=== PATIENT | female | born 1970 | race Caucasian/White ===

== ENCOUNTER 2018-03-24 10:04 | Inpatient (IN) | payer BC, OTHER ==
[2018-03-24] MEDS ORDERED: SODIUM CHLORIDE 0.9% 1,000 ML IV STA ×2 (10:13)
[2018-03-24 10:39] LABS: Anisocytosis Slight; Hypochromasia Marked; MCH 13.3 pg (25.0-35.0); MCHC 23.8 g/dL (31.0-37.0); MCV 55.9 fL (80.0-100.0); Mean Platelet Volume 8.1; Microcytosis Marked; Platelet Count 488 k/uL (150-450); Poikilocytosis Slight; RBC 1.68 m/uL (3.80-5.40); RDW 19.2 % (11.5-15.5); WBC 9.8 k/uL (3.8-10.6)
--- NOTE | 2018-03-24 10:44 | ED ---
General Adult HPI - General Chief complaint: Syncope Stated complaint: Syncope Time Seen by Provider: 03/24/18 10:13 Source: patient, RN notes reviewed, old records reviewed Mode of arrival: wheelchair Limitations: no limitations - History of Present Illness Initial comments: This is a 47-year-old female to the ER today. This patient resents today for evaluation regards to weakness and recurrent syncope. Patient states she's been feeling not well for a week. She denies any significant medical history. No recent travel history no sick contacts no fevers no chest pain. Patient states whenever he tries to get up and move or walk she passes out. Symptoms for 1 day of passing out, again weak for one week. Denies blood in her vomit denies blood in her stool denies any pain. - Related Data Home Medications Medication Instructions Recorded Confirmed Dextroamphetamine/Amphetamine 20 mg PO BID 06/27/15 03/24/18 [Adderall] Albuterol Inhaler [Ventolin Hfa 2 puff INHALATION RT-Q6H PRN 07/18/15 03/24/18 Inhaler] Allergies Allergy/AdvReac Type Severity Reaction Status Date / Time codeine Allergy Nausea & Verified 03/24/18 12:07 Vomiting Review of Systems ROS Statement: Those systems with pertinent positive or pertinent negative responses have been documented in the HPI. ROS Other: All systems not noted in ROS Statement are negative. Past Medical History Past Medical History: Asthma History of Any Multi-Drug Resistant Organisms: None Reported Past Surgical History: Hysterectomy, Tubal Ligation Past Anesthesia/Blood Transfusion Reactions: No Reported Reaction Past Psychological History: No Psychological Hx Reported Smoking Status: Never smoker Past Alcohol Use History: Occasional Past Drug Use History: None Reported - Past Family History Mother Family Medical History: Unable to Obtain General Exam - General Exam Comments Initial Comments: Patient very pale and weak in appearance Limitations: altered mental status General appearance: alert, lethargic Head exam: Present: atraumatic, normocephalic, normal inspection Eye exam: Present: normal appearance, PERRL, EOMI. Absent: scleral icterus, conjunctival injection, periorbital swelling ENT exam: Present: normal exam, mucous membranes moist Neck exam: Present: normal inspection. Absent: tenderness, meningismus, lymphadenopathy Respiratory exam: Present: normal lung sounds bilaterally. Absent: respiratory distress, wheezes, rales, rhonchi, stridor Cardiovascular Exam: Present: regular rate, normal rhythm, normal heart sounds. Absent: systolic murmur, diastolic murmur, rubs, gallop, clicks GI/Abdominal exam: Present: soft, normal bowel sounds. Absent: distended, tenderness, guarding, rebound, rigid Extremities exam: Present: normal inspection, full ROM, normal capillary refill. Absent: tenderness, pedal edema, joint swelling, calf tenderness Back exam: Present: normal inspection Neurological exam: Present: alert, oriented X3, CN II-XII intact Psychiatric exam: Present: normal affect, normal mood Skin exam: Present: warm, dry, intact, normal color. Absent: rash Course Vital Signs 03/24/18 03/24/18 03/24/18 10:07 11:09 12:09 Temperature 98.8 F 98.8 F Pulse Rate 101 H 99 98 Respiratory 20 18 18 Rate Blood Pressure 128/59 118/56 122/54 O2 Sat by Pulse 100 98 Oximetry 03/24/18 03/24/18 03/24/18 12:12 12:22 12:52 Temperature 97.8 F 97.7 F Pulse Rate 97 96 92 Respiratory 18 16 18 Rate Blood Pressure 128/61 127/60 130/80 O2 Sat by Pulse 100 100 Oximetry 03/24/18 03/24/18 03/24/18 14:38 15:02 15:05 Temperature 98.4 F 98.8 F 98.6 F Pulse Rate 87 92 88 Respiratory 16 16 16 Rate Blood Pressure 136/62 140/65 134/60 O2 Sat by Pulse 100 Oximetry 03/24/18 03/24/18 03/24/18 15:15 15:45 16:03 Temperature 98.2 F 98.2 F Pulse Rate 89 90 86 Respiratory 17 16 16 Rate Blood Pressure 132/62 131/62 136/77 O2 Sat by Pulse 100 97 Oximetry 03/24/18 18:28 Temperature 97.8 F Pulse Rate 92 Respiratory 18 Rate Blood Pressure 138/70 O2 Sat by Pulse 96 Oximetry - Reevaluation(s) Reevaluation #1: 03/24/18 11:54 Patient's medical record and prior laboratories are reviewed with hemoglobin near normal range at 10 although 3 years ago Reevaluation #2: 03/24/18 11:54 Patient has not had syncopal event here in the emergency room EKG Findings - EKG Comments: EKG Findings:: EKG shows sinus tachycardia rate 110, SC 180, QRS 70, QTc 443 Medical Decision Making - Medical Decision Making 47 female in severe distress secondary severe anemia we'll continue underlying to GI bleed versus vaginal bleeding slowly losing blood, were quite some time is her hemoglobin is severely low with vital signs being stable. Patient will be transfused and admitted for further evaluation consult regarding source of bleeding - Lab Data Result diagrams: 03/26/18 07:38 03/26/18 07:38 Lab Results 03/24/18 03/24/18 03/24/18 Range/Units 10:25 10:25 10:25 WBC 9.8 (3.8-10.6) k/uL RBC 1.68 L (3.80-5.40) m/uL Hgb 2.2 L* (11.4-16.0) gm/dL Hct 9.4 L* (34.0-46.0) % MCV 55.9 L (80.0-100.0) fL MCH 13.3 L (25.0-35.0) pg MCHC 23.8 L (31.0-37.0) g/dL RDW 19.2 H (11.5-15.5) % Plt Count 488 H (150-450) k/uL Neutrophils % (Manual) 91 % Lymphocytes % (Manual) 5 % Monocytes % (Manual) 4 % Neutrophils # (Manual) 8.92 H (1.3-7.7) k/uL Lymphocytes # (Manual) 0.49 L (1.0-4.8) k/uL Monocytes # (Manual) 0.39 (0-1.0) k/uL Nucleated RBCs 0 (0-0) /100 WBC Large Platelets Present Hypochromasia Marked Poikilocytosis Slight Anisocytosis Slight Microcytosis Marked Retic Count (0.5-2.0) % Haptoglobin (31.2-198.0) mg/dL PT (9.0-12.0) sec INR (<1.2) APTT (22.0-30.0) sec D-Dimer (<0.60) mg/L FEU Sodium 135 L (137-145) mmol/L Potassium 4.1 (3.5-5.1) mmol/L Chloride 102 (98-107) mmol/L Carbon Dioxide 16 L (22-30) mmol/L Anion Gap 17 mmol/L BUN 12 (7-17) mg/dL Creatinine 0.80 (0.52-1.04) mg/dL Est GFR (CKD-EPI)AfAm >90 (>60 ml/min/1.73 sqM) Est GFR (CKD-EPI)NonAf 88 (>60 ml/min/1.73 sqM) Glucose 119 H (74-99) mg/dL Lactic Ac Sepsis Rflx Plasma Lactic Acid Zay (0.7-2.0) mmol/L Calcium 8.7 (8.4-10.2) mg/dL Magnesium 2.4 H (1.6-2.3) mg/dL Iron (50-170) ug/dL TIBC (228-460) ug/dL Iron Saturation (12.00-45.00) Ferritin (10.0-291.0) ng/mL Total Bilirubin 1.2 (0.2-1.3) mg/dL AST 2229 H (14-36) U/L ALT 1887 H (9-52) U/L Alkaline Phosphatase 146 H (38-126) U/L Ammonia (<30) umol/L Lactate Dehydrogenase (313-618) U/L Total Creatine Kinase 43 (30-135) U/L CK-MB (CK-2) 0.8 (0.0-2.4) ng/mL CK-MB (CK-2) Rel Index 1.9 Troponin I 0.083 H* (0.000-0.034) ng/mL Total Protein 6.1 L (6.3-8.2) g/dL Albumin 3.5 (3.5-5.0) g/dL Urine Color Urine Appearance (Clear) Urine pH (5.0-8.0) Ur Specific [place] (1.001-1.035) Urine Protein (Negative) Urine Glucose (UA) (Negative) Urine Ketones (Negative) Urine Blood (Negative) Urine Nitrite (Negative) Urine Bilirubin (Negative) Urine Urobilinogen (<2.0) mg/dL Ur Leukocyte Esterase (Negative) Acetaminophen ug/mL Blood Type Blood Type Recheck Antibody Screen MARLENY, IgG Interpret MARLENY, Poly Interpret Crossmatch Spec Expiration Date 03/24/18 03/24/18 03/24/18 Range/Units 10:25 10:25 10:25 WBC (3.8-10.6) k/uL RBC (3.80-5.40) m/uL Hgb (11.4-16.0) gm/dL Hct (34.0-46.0) % MCV (80.0-100.0) fL MCH (25.0-35.0) pg MCHC (31.0-37.0) g/dL RDW (11.5-15.5) % Plt Count (150-450) k/uL Neutrophils % (Manual) % Lymphocytes % (Manual) % Monocytes % (Manual) % Neutrophils # (Manual) (1.3-7.7) k/uL Lymphocytes # (Manual) (1.0-4.8) k/uL Monocytes # (Manual) (0-1.0) k/uL Nucleated RBCs (0-0) /100 WBC Large Platelets Hypochromasia Poikilocytosis Anisocytosis Microcytosis Retic Count (0.5-2.0) % Haptoglobin (31.2-198.0) mg/dL PT 12.3 H (9.0-12.0) sec INR 1.3 H (<1.2) APTT 21.6 L (22.0-30.0) sec D-Dimer 1.75 H (<0.60) mg/L FEU Sodium (137-145) mmol/L Potassium (3.5-5.1) mmol/L Chloride (98-107) mmol/L Carbon Dioxide (22-30) mmol/L Anion Gap mmol/L BUN (7-17) mg/dL Creatinine (0.52-1.04) mg/dL Est GFR (CKD-EPI)AfAm (>60 ml/min/1.73 sqM) Est GFR (CKD-EPI)NonAf (>60 ml/min/1.73 sqM) Glucose (74-99) mg/dL Lactic Ac Sepsis Rflx Plasma Lactic Acid Zay (0.7-2.0) mmol/L Calcium (8.4-10.2) mg/dL Magnesium (1.6-2.3) mg/dL Iron (50-170) ug/dL TIBC (228-460) ug/dL Iron Saturation (12.00-45.00) Ferritin (10.0-291.0) ng/mL Total Bilirubin (0.2-1.3) mg/dL AST (14-36) U/L ALT (9-52) U/L Alkaline Phosphatase (38-126) U/L Ammonia (<30) umol/L Lactate Dehydrogenase (313-618) U/L Total Creatine Kinase (30-135) U/L CK-MB (CK-2) (0.0-2.4) ng/mL CK-MB (CK-2) Rel Index Troponin I (0.000-0.034) ng/mL Total Protein (6.3-8.2) g/dL Albumin (3.5-5.0) g/dL Urine Color Urine Appearance (Clear) Urine pH (5.0-8.0) Ur Specific [place] (1.001-1.035) Urine Protein (Negative) Urine Glucose (UA) (Negative) Urine Ketones (Negative) Urine Blood (Negative) Urine Nitrite (Negative) Urine Bilirubin (Negative) Urine Urobilinogen (<2.0) mg/dL Ur Leukocyte Esterase (Negative) Acetaminophen <10.0 ug/mL Blood Type B Positive Blood Type Recheck No Antibody Screen NEGATIVE MARLENY, IgG Interpret MARLENY, Poly Interpret Crossmatch See Detail Spec Expiration Date 03/27/2018232403/24/18 03/24/18 03/24/18 Range/Units 10:25 10:25 10:25 WBC (3.8-10.6) k/uL RBC (3.80-5.40) m/uL Hgb (11.4-16.0) gm/dL Hct (34.0-46.0) % MCV (80.0-100.0) fL MCH (25.0-35.0) pg MCHC (31.0-37.0) g/dL RDW (11.5-15.5) % Plt Count (150-450) k/uL Neutrophils % (Manual) % Lymphocytes % (Manual) % Monocytes % (Manual) % Neutrophils # (Manual) (1.3-7.7) k/uL Lymphocytes # (Manual) (1.0-4.8) k/uL Monocytes # (Manual) (0-1.0) k/uL Nucleated RBCs (0-0) /100 WBC Large Platelets Hypochromasia Poikilocytosis Anisocytosis Microcytosis Retic Count 5.0 H (0.5-2.0) % Haptoglobin (31.2-198.0) mg/dL PT (9.0-12.0) sec INR (<1.2) APTT (22.0-30.0) sec D-Dimer (<0.60) mg/L FEU Sodium (137-145) mmol/L Potassium (3.5-5.1) mmol/L Chloride (98-107) mmol/L Carbon Dioxide (22-30) mmol/L Anion Gap mmol/L BUN (7-17) mg/dL Creatinine (0.52-1.04) mg/dL Est GFR (CKD-EPI)AfAm (>60 ml/min/1.73 sqM) Est GFR (CKD-EPI)NonAf (>60 ml/min/1.73 sqM) Glucose (74-99) mg/dL Lactic Ac Sepsis Rflx Plasma Lactic Acid Zay 8.3 H* (0.7-2.0) mmol/L Calcium (8.4-10.2) mg/dL Magnesium (1.6-2.3) mg/dL Iron (50-170) ug/dL TIBC (228-460) ug/dL Iron Saturation (12.00-45.00) Ferritin (10.0-291.0) ng/mL Total Bilirubin (0.2-1.3) mg/dL AST (14-36) U/L ALT (9-52) U/L Alkaline Phosphatase (38-126) U/L Ammonia <9 (<30) umol/L Lactate Dehydrogenase 7038 H (313-618) U/L Total Creatine Kinase (30-135) U/L CK-MB (CK-2) (0.0-2.4) ng/mL CK-MB (CK-2) Rel Index Troponin I (0.000-0.034) ng/mL Total Protein (6.3-8.2) g/dL Albumin (3.5-5.0) g/dL Urine Color Urine Appearance (Clear) Urine pH (5.0-8.0) Ur Specific [place] (1.001-1.035) Urine Protein (Negative) Urine Glucose (UA) (Negative) Urine Ketones (Negative) Urine Blood (Negative) Urine Nitrite (Negative) Urine Bilirubin (Negative) Urine Urobilinogen (<2.0) mg/dL Ur Leukocyte Esterase (Negative) Acetaminophen ug/mL Blood Type Blood Type Recheck Antibody Screen MARLENY, IgG Interpret MARLENY, Poly Interpret Crossmatch Spec Expiration Date 03/24/18 03/24/18 03/24/18 Range/Units 10:25 10:25 12:13 WBC (3.8-10.6) k/uL RBC (3.80-5.40) m/uL Hgb (11.4-16.0) gm/dL Hct (34.0-46.0) % MCV (80.0-100.0) fL MCH (25.0-35.0) pg MCHC (31.0-37.0) g/dL RDW (11.5-15.5) % Plt Count (150-450) k/uL Neutrophils % (Manual) % Lymphocytes % (Manual) % Monocytes % (Manual) % Neutrophils # (Manual) (1.3-7.7) k/uL Lymphocytes # (Manual) (1.0-4.8) k/uL Monocytes # (Manual) (0-1.0) k/uL Nucleated RBCs (0-0) /100 WBC Large Platelets Hypochromasia Poikilocytosis Anisocytosis Microcytosis Retic Count (0.5-2.0) % Haptoglobin 215.0 H (31.2-198.0) mg/dL PT (9.0-12.0) sec INR (<1.2) APTT (22.0-30.0) sec D-Dimer (<0.60) mg/L FEU Sodium (137-145) mmol/L Potassium (3.5-5.1) mmol/L Chloride (98-107) mmol/L Carbon Dioxide (22-30) mmol/L Anion Gap mmol/L BUN (7-17) mg/dL Creatinine (0.52-1.04) mg/dL Est GFR (CKD-EPI)AfAm (>60 ml/min/1.73 sqM) Est GFR (CKD-EPI)NonAf (>60 ml/min/1.73 sqM) Glucose (74-99) mg/dL Lactic Ac Sepsis Rflx Y Plasma Lactic Acid Zay (0.7-2.0) mmol/L Calcium (8.4-10.2) mg/dL Magnesium (1.6-2.3) mg/dL Iron 7 L (50-170) ug/dL TIBC 467 H (228-460) ug/dL Iron Saturation 1.50 L (12.00-45.00) Ferritin 9.2 L (10.0-291.0) ng/mL Total Bilirubin (0.2-1.3) mg/dL AST (14-36) U/L ALT (9-52) U/L Alkaline Phosphatase (38-126) U/L Ammonia (<30) umol/L Lactate Dehydrogenase (313-618) U/L Total Creatine Kinase (30-135) U/L CK-MB (CK-2) (0.0-2.4) ng/mL CK-MB (CK-2) Rel Index Troponin I (0.000-0.034) ng/mL Total Protein (6.3-8.2) g/dL Albumin (3.5-5.0) g/dL Urine Color Urine Appearance (Clear) Urine pH (5.0-8.0) Ur Specific [place] (1.001-1.035) Urine Protein (Negative) Urine Glucose (UA) (Negative) Urine Ketones (Negative) Urine Blood (Negative) Urine Nitrite (Negative) Urine Bilirubin (Negative) Urine Urobilinogen (<2.0) mg/dL Ur Leukocyte Esterase (Negative) Acetaminophen ug/mL Blood Type Blood Type Recheck Antibody Screen MARLENY, IgG Interpret Negative MARLENY, Poly Interpret Negative Crossmatch Spec Expiration Date 03/24/18 Range/Units 13:38 WBC (3.8-10.6) k/uL RBC (3.80-5.40) m/uL Hgb (11.4-16.0) gm/dL Hct (34.0-46.0) % MCV (80.0-100.0) fL MCH (25.0-35.0) pg MCHC (31.0-37.0) g/dL RDW (11.5-15.5) % Plt Count (150-450) k/uL Neutrophils % (Manual) % Lymphocytes % (Manual) % Monocytes % (Manual) % Neutrophils # (Manual) (1.3-7.7) k/uL Lymphocytes # (Manual) (1.0-4.8) k/uL Monocytes # (Manual) (0-1.0) k/uL Nucleated RBCs (0-0) /100 WBC Large Platelets Hypochromasia Poikilocytosis Anisocytosis Microcytosis Retic Count (0.5-2.0) % Haptoglobin (31.2-198.0) mg/dL PT (9.0-12.0) sec INR (<1.2) APTT (22.0-30.0) sec D-Dimer (<0.60) mg/L FEU Sodium (137-145) mmol/L Potassium (3.5-5.1) mmol/L Chloride (98-107) mmol/L Carbon Dioxide (22-30) mmol/L Anion Gap mmol/L BUN (7-17) mg/dL Creatinine (0.52-1.04) mg/dL Est GFR (CKD-EPI)AfAm (>60 ml/min/1.73 sqM) Est GFR (CKD-EPI)NonAf (>60 ml/min/1.73 sqM) Glucose (74-99) mg/dL Lactic Ac Sepsis Rflx Plasma Lactic Acid Zay (0.7-2.0) mmol/L Calcium (8.4-10.2) mg/dL Magnesium (1.6-2.3) mg/dL Iron (50-170) ug/dL TIBC (228-460) ug/dL Iron Saturation (12.00-45.00) Ferritin (10.0-291.0) ng/mL Total Bilirubin (0.2-1.3) mg/dL AST (14-36) U/L ALT (9-52) U/L Alkaline Phosphatase (38-126) U/L Ammonia (<30) umol/L Lactate Dehydrogenase (313-618) U/L Total Creatine Kinase (30-135) U/L CK-MB (CK-2) (0.0-2.4) ng/mL CK-MB (CK-2) Rel Index Troponin I (0.000-0.034) ng/mL Total Protein (6.3-8.2) g/dL Albumin (3.5-5.0) g/dL Urine Color Yellow Urine Appearance Clear (Clear) Urine pH 5.5 (5.0-8.0) Ur Specific [place] 1.032 (1.001-1.035) Urine Protein Trace H (Negative) Urine Glucose (UA) Negative (Negative) Urine Ketones Trace H (Negative) Urine Blood Negative (Negative) Urine Nitrite Negative (Negative) Urine Bilirubin Negative (Negative) Urine Urobilinogen <2.0 (<2.0) mg/dL Ur Leukocyte Esterase Negative (Negative) Acetaminophen ug/mL Blood Type Blood Type Recheck Antibody Screen MARLENY, IgG Interpret MARLENY, Poly Interpret Crossmatch Spec Expiration Date - Radiology Data Radiology results: report reviewed (CT brain negative CT a chest abdomen pelvis shows there is some bleeding on vaginal cough), image reviewed Critical Care Time Critical Care Time: Yes Total Critical Care Time: 95 Disposition Clinical Impression: Anemia, Syncope, Transaminitis, Vaginal bleeding Disposition: ADMITTED IP TO THIS [facility] Condition: Critical Is patient prescribed a controlled substance at d/c from ED?: No
[2018-03-24 10:46] LABS: Albumin 3.5 g/dL (3.5-5.0); Alkaline Phosphatase 146 U/L (38-126); Anion Gap 17 mmol/L; Blood Urea Nitrogen 12 mg/dL (7-17); Calcium 8.7 mg/dL (8.4-10.2); Carbon Dioxide 16 mmol/L (22-30); Chloride 102 mmol/L (98-107); Glucose 119 mg/dL (74-99); Magnesium 2.4 mg/dL (1.6-2.3); Potassium 4.1 mmol/L (3.5-5.1); Sodium 135 mmol/L (137-145); Total Bilirubin 1.2 mg/dL (0.2-1.3); Total Protein 6.1 g/dL (6.3-8.2)
[2018-03-24 10:49] LABS: HCT 9.4 % (34.0-46.0); HGB 2.2 gm/dL (11.4-16.0)
[2018-03-24 10:57] LABS: INR 1.3 (<1.2); Prothrombin Time 12.3 sec (9.0-12.0)
--- NOTE | 2018-03-24 11:08 | CT ---
EXAMINATION TYPE: CT brain wo con DATE OF EXAM: 03/24/2018 COMPARISON: CT facial bones dated 07/16/2016 HISTORY: syncope CT DLP: 1222.5 mGycm. Automated Exposure Control for Dose Reduction was Utilized. TECHNIQUE: CT scan of the head is performed without contrast. FINDINGS: There is no acute intracranial hemorrhage, mass effect, or midline shift identified. No suspicious extra axial fluid collection. The ventricles and sulci are within normal limits in size. 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 Rem aining paranasal sinuses are well aerated as are the mastoid air cells. The globes are intact. There is slightly right exophthalmos that could be partially positional. Partially empty sella turcica is a lso incidentally noted. IMPRESSION: 1. No acute intracranial hemorrhage, mass effect, or midline shift is seen. 2. Slight right-sided exophthalmus may be partially positional but could be correlated with thyroid f unction tests on a nonemergent basis. 3. Severe mucosal thickening of the atrophic right maxillary sinus. Small size may be congenital or p osttraumatic
[2018-03-24 11:11] LABS: Creatine Kinase MB 0.8 ng/mL (0.0-2.4)
[2018-03-24 11:14] LABS: Troponin I 0.083 ng/mL (0.000-0.034)
--- NOTE | 2018-03-24 11:16 | CT ---
EXAMINATION TYPE: CT angio chest DATE OF EXAM: 03/24/2018 COMPARISON: NONE HISTORY: Syncope per patient. Chest pain per order. CT DLP: 629 mGycm. Automated Exposure Control for Dose Reduction was Utilized. CONTRAST: CTA scan of the thorax is performed with IV Contrast, patient injected with 100 mL of Isovue 300, pul monary embolism protocol. MIP Images are created on CT scanner and reviewed. FINDINGS: LUNGS: Evaluation is suboptimal due to respiratory motion artifact degradation There is small right p leural effusion. Tiny left pleural effusion is felt present. There is right greater than left bibasil ar linear scarring and/or atelectasis. No parenchymal nodule or mass is present. There is mild bilate ral central peribronchial wall thickening. MEDIASTINUM: There is suboptimal bolus with near equal contrast seen in the right and left heart syst ems, there is no convincing evidence of central or lobar pulmonary embolism. Majority of segmental br anches show no thrombus. Subsegmental branches are suboptimally evaluated. There are prominent bilat eral hilar lymph nodes or consolidation. Slightly prominent but subcentimeter subcarinal lymph node is felt present. No significant pericardial effusion is seen. Cardiomegaly is present. There is large hiatal hernia or intrathoracic stomach identified. Main pulmonary artery is dilated at 3.2 cm at lev el of bifurcation axial image 59, CT findings consistent with underlying pulmonary hypertension. OTHER: Localizer shows surgical hardware left proximal humerus. Underlying scoliosis in the lumbar sp ine is present. Mild multilevel spurring in the thoracic spine is present. IMPRESSION: 1. Suboptimal study without central pulmonary embolism. Smaller subsegmental PE is not entirely exclu ded on this exam. 2. Consider CHF exacerbation as there is cardiomegaly with small to tiny right greater than left pleu ral effusions and suspected mild central vascular congestion. Correlate clinically. Underlying pulmon renaldo artery hypertension is felt present. Correlate clinically.
[2018-03-24 11:17] LABS: ALT 1887 U/L (9-52); AST 2229 U/L (14-36)
[2018-03-24 11:22] LABS: Lymphocytes # (M) 0.49 k/uL (1.0-4.8); Monocytes # (M) 0.39 k/uL (0-1.0); Neutrophils # (M) 8.92 k/uL (1.3-7.7); Neutrophils % (M) 91 %; Nucleated Red Blood Cells 0 /100 WBC (0-0); Total Cells Counted 100
[2018-03-24 11:23] LABS: Large Platelets Present
[2018-03-24 11:32] LABS: D-Dimer 1.75 mg/L FEU (<0.60); Partial Thromboplastin Time 21.6 sec (22.0-30.0)
[2018-03-24] MEDS ORDERED: ONDANSETRON 4 MG/2 ML VIAL IVP STA (11:59)
[2018-03-24] MEDS ORDERED: PANTOPRAZOLE 40 MG/10 ML VIAL IVP STA (11:59)
[2018-03-24 12:07] LABS: Ammonia <9 umol/L (<30)
[2018-03-24 12:13] LABS: Lactic Acid, Venous 8.3 mmol/L (0.7-2.0)
--- NOTE | 2018-03-24 13:56 | CT ---
EXAMINATION TYPE: CT abdomen pelvis wo con DATE OF EXAM: 03/24/2018 HISTORY: Decreased hemoglobin CT DLP: 1059 mGycm. Automated Exposure Control for Dose Reduction was Utilized. TECHNIQUE: CT scan of the abdomen and pelvis is performed without oral or IV contrast. COMPARISON: CT abdomen and pelvis June 27, 2015 FINDINGS: Within the limitations of a non-contrast study, the following observations are made. LUNG BASES: Mild Cardiomegaly is identified. Small to tiny bilateral pleural effusions right greater than left are partially imaged. There is associated compressive atelectasis. LIVER/GB: No significant abnormality is appreciated. PANCREAS: No significant abnormality is seen. SPLEEN: No significant abnormality is seen. ADRENALS: No significant abnormality is seen. KIDNEYS: Contrast from recent CT is seen in collecting systems and bladder. BOWEL: There is large hiatal hernia or intrathoracic stomach partially imaged similar to prior. GENITAL ORGANS: Retroverted soft tissue density is seen sagittal image 45 posterior to bladder. High dense material centrally in uterus is noted. Differential includes acute hemorrhage in the remnant va ginal cuff. Other etiologies are not excluded. Not typical appearance of bladder diverticulum. Clinic al correlation is advised. There are surgical clips in the left pelvis redemonstrated axial image 62. Adjacent to this is presum ed left ovary with cystic lesions, largest measures 4.1 x 2.7 cm axial image 58. Location is fairly s uperior relative to uterus however. Right ovary is not identified on current study. LYMPH NODES: No greater than 1cm abdominal or pelvic lymph nodes are appreciated. OSSEOUS STRUCTURES: Scoliosis is redemonstrated. OTHER: Mild subcutaneous edema along the lateral flanks is present axial image 33. IMPRESSION: 1. No suspicious retroperitoneal fluid collection or hematoma. Possible acute hemorrhage in remnant v aginal cuff. Correlate clinically. 2. New cystic lesions left lower abdomen/upper pelvis likely within left ovary. Cystic neoplasm canno t be excluded especially if there is history of right-sided ovarian neoplasm. Correlate clinically. C onsider nonemergent pelvic ultrasound follow-up to better evaluate and characterize.
--- NOTE | 2018-03-24 14:35 | US ---
EXAMINATION TYPE: US gallbladder DATE OF EXAM: 03/24/2018 COMPARISON: CT 2018 CLINICAL HISTORY: Pain. Syncope, abdomen pain and nausea x 1 week, exam done portable in ER. EXAM MEASUREMENTS: Liver Length: 18.3 cm Gallbladder Wall: 0.2 cm CBD: 0.3 cm Right Kidney: 11.7 x 4.9 x 5.2 cm Pancreas: visualized portions wnl, limited by overlying midline bowel gas Liver: mildly enlarged at 18.3cm Gallbladder: wnl Evidence for sonographic Tim's sign: no CBD: visualized portions wnl, limited by overlying bowel gas Right Kidney: wnl Right pleural effusion IMPRESSION: 1. No sonographic evidence of cholelithiasis or acute cholecystitis. 2. Incidentally noted partially visualized right pleural effusion.
[2018-03-24 14:41] LABS: Appearance,Urine Clear (Clear); Bilirubin,Urine Negative (Negative); Blood,Urine Negative (Negative); Color,Urine Yellow; Glucose,Urine (UA) Negative (Negative); Ketones,Urine Trace (Negative); Leukocyte Esterase,Urine Negative (Negative); Nitrite,Urine Negative (Negative); PH, Urine 5.5 (5.0-8.0); Protein,Urine Trace (Negative); Specific Gravity,Urine 1.032 (1.001-1.035); Urobilinogen,Urine <2.0 mg/dL (<2.0)
[2018-03-24] MEDS ORDERED: NALOXONE 0.4 MG/ML 1 ML VIAL IV PRN (15:18)
--- NOTE | 2018-03-24 16:52 | P.HPIM ---
History of Present Illness Chief Complaint: Fatigue and dizziness This is a 47-year-old female without significant past medical history and currently taking no home medication who presented to emergency room with complaint of lightheadedness, shortness of breath and several fainting episodes. Her symptoms started approximately 1 week ago with fatigue that was progressive and some over few days became extreme. With the last couple days she started feeling short of breath with exertion. Over the last 2-3 days she's been feeling very lightheaded when getting up and trying to walk and fainted couple of times. There was no headache vision changes chest pain fever chills or abdominal pain. Extreme fatigue and light headedness prompting her to come to emergency department where initial blood work showed hemoglobin of 2. 2 months prior to this admission patient started experiencing occasional hot flashes and attacks of fatigue that were at that time short lasting. Soon after that she noticed difficulties in caring for everyday activities and concentration. She did not notice any vaginal bleeding or melena or hematochezia. She did not notice any abdominal or back pain. She did not notice her eyes or skin turning yellow. No hematuria or darkening of the urine. C essentially denied any skin rashes, fever, chills, recent illnesses, enlarging lymph nodes in the neck or the groins, night sweats, weight or appetite loss. 2 years prior to this admission she was diagnosed with right ovary cyst for which she underwent laparoscopic right sided all ophoro- salpingotomy. 16 years prior to this admission she underwent elective hysterectomy and since then she didn't notice any vaginal bleeding. Emergency department she had CT chest abdomen and pelvis. CT of the pelvis showed retroverted soft tissue density posterior to bladder. High-density material certain this centrally and uterus. Differential was acute hemorrhage in the remnant vaginal cuff. New cystic lesion in the left lower abdomen and upper pelvis likely due to an ovary. Adjacent to this is presumed left ovary with cystic lesion largest measures 4.12.7 cm. Rest of the imaging was unremarkable except mild cardiomegaly and small bilateral pleural effusions. Other pertinent laboratory data includes elevated lactic acid of 8.2, liver enzymes in 1999, normal bilirubin, troponin 0.083, with normal platelet and white blood cell count. Her hematological indices are very low with MCV 55.9 and elevated RDW Review of Systems REVIEW OF SYSTEMS: CONSTITUTIONAL: She denies any recent weight changes, fevers or night sweats. DERMATOLOGIC: She denies any rashes. HEENT: Eyes: She has had no changes in her vision. No eye pain. No discharge. ENT: She had no hearing changes, no throat pain, no sinus difficulties. No hoarseness. CARDIOVASCULAR: She denies any chest pain or abnormal heart beats, or any swelling in her ankles or feet. RESPIRATORY: No wheezing or coughing. Shortness of breath like mentioned in HPI GASTROINTESTINAL: No nausea, vomiting, abdominal pain, diarrhea or constipation , no blood in the stool, GENITOURINARY: She denies any urinary urgency, frequency or burning, and there has been no blood in her urine. She has no flank pain. She has also had no vaginal discharge or bleeding. MUSCULOSKELETAL: She notes full range of motion of all her joints without pain or swelling. ENDOCRINE: She denies any heat or cold intolerance or excessive thirst or urination. NEUROLOGICAL: Currently, no headache. She has no vision changes, or fainting. No numbness or tingling. PSYCHIATRIC: She is awake alert and oriented 3, judgment intact, motor is anxious Past Medical History Past Medical History: Asthma History of Any Multi-Drug Resistant Organisms: None Reported Past Surgical History: Hysterectomy, Tubal Ligation Past Anesthesia/Blood Transfusion Reactions: No Reported Reaction Past Psychological History: No Psychological Hx Reported Smoking Status: Never smoker Past Alcohol Use History: Occasional Past Drug Use History: None Reported - Past Family History Mother Family Medical History: Unable to Obtain Medications and Allergies Home Medications Medication Instructions Recorded Confirmed Type Dextroamphetamine/Amphetamine 20 mg PO BID 06/27/15 03/24/18 History [Adderall] Albuterol Inhaler [Ventolin Hfa 2 puff INHALATION RT-Q6H PRN 07/18/15 03/24/18 History Inhaler] Allergies Allergy/AdvReac Type Severity Reaction Status Date / Time codeine Allergy Nausea & Verified 03/24/18 12:07 Vomiting Physical Exam Vitals: Vital Signs Temp Pulse Resp BP Pulse Ox 03/24/18 16:03 86 16 136/77 97 03/24/18 15:45 98.2 F 90 16 131/62 100 03/24/18 15:15 98.2 F 89 17 132/62 03/24/18 15:05 98.6 F 88 16 134/60 03/24/18 15:02 98.8 F 92 16 140/65 100 08/17/18 14:38 98.4 F 87 16 136/62 03/24/18 12:52 97.7 F 92 18 130/80 100 03/24/18 12:22 97.8 F 96 16 127/60 100 03/24/18 12:12 97 18 128/61 03/24/18 12:09 98.8 F 98 18 122/54 03/24/18 11:09 99 18 118/56 98 03/24/18 10:07 98.8 F 101 H 20 128/59 100 Intake and Output 03/24/18 03/24/18 03/24/18 06:59 14:59 22:59 Intake Total 410 0 Output Total 550 120 Balance -140 -120 Intake: Blood Product 310 0 Rc As-1 Unit 310 [id number] Rc As-1 Unit 0 [id number] Other 100 Rc As-1 Unit 100 [id number] Output: Urine 550 120 Other: Weight 73.482 kg Vital Signs: I have reviewed the vital signs. GENERAL: Well-nourished, Well-developed , no apparent distress, cooperative, Eyes: PERRL, extraoculry movements intact, clear and anicteric conjunctiva Head: : Atraumatic external nose and ears, oropharyngeal mucosa is moist without lesions or exudates Neck: Symmetric, trachea midline, No thyromegaly, no masses or neck vain pulsation, no neck rigidity CVS: +S1/S2, 2/6 murmur left upper sternal border. Peripheral pulses 2+ and equal in all extremities. RESP: Unlabored respiratory effort. Clear to auscultation bilaterally. Abdomen: Bowel sounds present in all 4 quadrants, Soft to palpation, Nontender/ Nondistended, No hepatosplenomegaly, no hernias or masses, no CVA tnderness; vaginal rectal exam deferred due to patient's preference Musculoskeletal: Extremities w/o deformity, No cyanosis or clubbing, no joint swelling Skin: Pale ,Warm, Dry. No rashes or lesions Neuro: roller coaster designer II-XII grossly intact, motor strenght 5/5 i upper and lower extremities, no clonus, patellar DTRs 2+ and sympetrical Psych: Awake, Alert, & Oriented (AAO) x3 Appropriate mood and affect Results CBC & Chem 7: 03/24/18 10:25 08/17/18 10:25 Labs: Abnormal Lab Results - Last 24 Hours (Table) 03/24/18 03/24/18 03/24/18 Range/Units 10:25 10:25 10:25 RBC 1.68 L (3.80-5.40) m/uL Hgb 2.2 L* (11.4-16.0) gm/dL Hct 9.4 L* (34.0-46.0) % MCV 55.9 L (80.0-100.0) fL MCH 13.3 L (25.0-35.0) pg MCHC 23.8 L (31.0-37.0) g/dL RDW 19.2 H (11.5-15.5) % Plt Count 488 H (150-450) k/uL Neutrophils # (Manual) 8.92 H (1.3-7.7) k/uL Lymphocytes # (Manual) 0.49 L (1.0-4.8) k/uL PT (9.0-12.0) sec INR (<1.2) APTT (22.0-30.0) sec D-Dimer (<0.60) mg/L FEU Sodium 135 L (137-145) mmol/L Carbon Dioxide 16 L (22-30) mmol/L Glucose 119 H (74-99) mg/dL Plasma Lactic Acid Zay (0.7-2.0) mmol/L Magnesium 2.4 H (1.6-2.3) mg/dL AST 2229 H (14-36) U/L ALT 1887 H (9-52) U/L Alkaline Phosphatase 146 H (38-126) U/L Troponin I 0.083 H* (0.000-0.034) ng/mL Total Protein 6.1 L (6.3-8.2) g/dL Urine Protein (Negative) Urine Ketones (Negative) Crossmatch 03/24/18 03/24/18 03/24/18 Range/Units 10:25 10:25 10:25 RBC (3.80-5.40) m/uL Hgb (11.4-16.0) gm/dL Hct (34.0-46.0) % MCV (80.0-100.0) fL MCH (25.0-35.0) pg MCHC (31.0-37.0) g/dL RDW (11.5-15.5) % Plt Count (150-450) k/uL Neutrophils # (Manual) (1.3-7.7) k/uL Lymphocytes # (Manual) (1.0-4.8) k/uL PT 12.3 H (9.0-12.0) sec INR 1.3 H (<1.2) APTT 21.6 L (22.0-30.0) sec D-Dimer 1.75 H (<0.60) mg/L FEU Sodium (137-145) mmol/L Carbon Dioxide (22-30) mmol/L Glucose (74-99) mg/dL Plasma Lactic Acid Zay 8.3 H* (0.7-2.0) mmol/L Magnesium (1.6-2.3) mg/dL AST (14-36) U/L ALT (9-52) U/L Alkaline Phosphatase (38-126) U/L Troponin I (0.000-0.034) ng/mL Total Protein (6.3-8.2) g/dL Urine Protein (Negative) Urine Ketones (Negative) Crossmatch See Detail 03/24/18 Range/Units 13:38 RBC (3.80-5.40) m/uL Hgb (11.4-16.0) gm/dL Hct (34.0-46.0) % MCV (80.0-100.0) fL MCH (25.0-35.0) pg MCHC (31.0-37.0) g/dL RDW (11.5-15.5) % Plt Count (150-450) k/uL Neutrophils # (Manual) (1.3-7.7) k/uL Lymphocytes # (Manual) (1.0-4.8) k/uL PT (9.0-12.0) sec INR (<1.2) APTT (22.0-30.0) sec D-Dimer (<0.60) mg/L FEU Sodium (137-145) mmol/L Carbon Dioxide (22-30) mmol/L Glucose (74-99) mg/dL Plasma Lactic Acid Zay (0.7-2.0) mmol/L Magnesium (1.6-2.3) mg/dL AST (14-36) U/L ALT (9-52) U/L Alkaline Phosphatase (38-126) U/L Troponin I (0.000-0.034) ng/mL Total Protein (6.3-8.2) g/dL Urine Protein Trace H (Negative) Urine Ketones Trace H (Negative) Crossmatch CT scan - abdomen: report reviewed CT scan - chest: report reviewed CT Scan - head: report reviewed CT scan - pelvis: report reviewed (CT abdomen and chest and pelvis results were directly reviewed with radiologist) Assessment and Plan Plan: 1. Severe microcytic anemia symptomatic with lightheadedness, fainting, shortness of breath Given hematological indices most likely consistent with iron deficiency anemia and given the patient is hemodynamically stable likely related to slow chronic occult bleeding Concern for bleeding from genital organs including vaginal cuff and cervical remnant as it has some fluid collection resembling blood hemorrhage described in the CAT scan GI bleeding occult cannot be ruled out Plan is to observe in ICU Transfuse as cardio pulmonary status can tolerate I obtained iron studies from abdomen from initial blood work prior to transfusion Workup other etiologies like hemolyze his hands LDH heptoglobin total bili and ta test (although antibody screen foot incision purposes was negative), reticulocyte count and peripheral blood smear review Consult to patient water pollution control technician placed Stool for occult blood ordered and bases and the above results we'll consider involvement of gastroenterology Monitoring hemoglobin every 6 hours ordered 2. Dyspnea In view of cardiomegaly on imaging and small pleural effusions and overall presentation related to high output heart failure related to severe anemia Currently blood transfusions underway but closely monitor cardiopulmonary status full elements of fluid overload We'll obtain echo to evaluate as well 3. Elevated troponin No chest pain EKG with some flat ST segment depressions V3 to V5 nonspecific Likely related to demand ischemia and type II non-STEMI For various reasons patient is not a candidate for antiplatelets and anticoagulation's We'll trend troponins and obtain echocardiogram This patient is well 4. Lactic acidosis Due to tissue hypoperfusion and ischemia Received IV fluids in the emergency department and currently receiving blood Repeat lactic acid pending Metabolically not significantly acidotic and BMP 5. Elevated liver enzymes Denies any suspicious medications or [id number] products Tylenol level is negative This could be related again to 2 ischemia and hypoperfusion of the liver Additionally we will check viral hepatitis study and consider screening for autoimmune hepatitis Aquatics bilirubin pneumonia stable Repeat liver enzymes in the morning Patient is full code Surrogate decision-maker is her mother (name and contact info in the chart) She is expected to have 2 or more midnights stay in inpatient status
[2018-03-24 18:47] LABS: Glucose,Whole Blood 122 mg/dL (75-99)
[2018-03-24] MEDS: MULTIVITAMINS, THERA 1 EACH TAB PO SCH ×2 (18:51→19:02)
[2018-03-24] MEDS: FOLIC ACID 1 MG TAB PO SCH ×2 (18:51→19:02)
[2018-03-24] MEDS: IPRATROPIUM-ALBUTEROL 3 ML NEB INHALATION PRN (19:02)
[2018-03-24] MEDS: PANTOPRAZOLE 40 MG/10 ML VIAL IVP SCH (21:23)
[2018-03-24] MEDS: SODIUM CHLORIDE 0.9% 1,000 ML IV SCH (22:09)
[2018-03-25] MEDS: IPRATROPIUM-ALBUTEROL 3 ML NEB INHALATION PRN ×3 (01:13→20:01)
[2018-03-25] MEDS ORDERED: FUROSEMIDE 10 MG/ML 2 ML VIAL IV ONE (01:51)
[2018-03-25 02:54] LABS: Anisocytosis Marked; HCT 22.2 % (34.0-46.0); Hypochromasia Marked; MCH 24.5 pg (25.0-35.0); MCHC 31.6 g/dL (31.0-37.0); Mean Platelet Volume 9.2; Microcytosis Marked; Platelet Count 353 k/uL (150-450); Poikilocytosis Marked; RBC 2.86 m/uL (3.80-5.40)
[2018-03-25 02:55] LABS: Iron Saturation 1.5 (12.00-45.00)
[2018-03-25 02:56] LABS: MCV 77.5 fL (80.0-100.0)
[2018-03-25 03:20] LABS: Eosinophils # (M) 0.07 k/uL (0-0.7); Lymphocytes # (M) 1.21 k/uL (1.0-4.8); Monocytes # (M) 0.47 k/uL (0-1.0); Myelocytes # (M) 0.07 k/uL (0); Myelocytes % 1 %; Neutrophils # (M) 4.89 k/uL (1.3-7.7); Neutrophils % (M) 73 %; Nucleated Red Blood Cells 5 /100 WBC (0-0); Total Cells Counted 200; WBC 6.7 k/uL (3.8-10.6)
[2018-03-25 03:21] LABS: Large Platelets Present; Mixed Population RBC Present; Polychromasia Present
[2018-03-25 04:56] LABS: Alkaline Phosphatase 148 U/L (38-126); Anion Gap 10 mmol/L; Blood Urea Nitrogen 12 mg/dL (7-17); Calcium 7.8 mg/dL (8.4-10.2); Carbon Dioxide 22 mmol/L (22-30); Chloride 103 mmol/L (98-107); Glucose 103 mg/dL (74-99); Potassium 3.2 mmol/L (3.5-5.1); Sodium 135 mmol/L (137-145); Total Protein 5.5 g/dL (6.3-8.2)
[2018-03-25 05:06] LABS: ALT 1449 U/L (9-52); AST 1104 U/L (14-36)
[2018-03-25] MEDS ORDERED: Potassium Replacement Protocol 1 EACH MISC MISCELLANE PRN (05:30)
--- NOTE | 2018-03-25 06:11 | XR ---
EXAMINATION TYPE: XR chest 1V DATE OF EXAM: 03/25/2018 HISTORY: shortness of breath. REFERENCE: Previous study dated 10/10/2011. FINDINGS: There has been previous internal fixation of the left humerus. The heart is mildly prominent. There is minimal atelectasis at the left lung base. Pleural space are clear. IMPRESSION: 1. MILD CARDIOMEGALY. 2. MINIMAL ATELECTASIS, LEFT LUNG BASE.
[2018-03-25] MEDS: POTASSIUM CHLORIDE ER 20 MEQ TAB.ER PO SCH ×2 (06:23→07:17)
[2018-03-25] MEDS: SODIUM CHLORIDE 0.9% 1,000 ML IV SCH ×2 (08:05→08:19)
[2018-03-25 08:45] LABS: Anisocytosis Marked; HCT 22.5 % (34.0-46.0); HGB 7.1 gm/dL (11.4-16.0); Hypochromasia Marked; MCH 24.4 pg (25.0-35.0); MCHC 31.7 g/dL (31.0-37.0); MCV 76.9 fL (80.0-100.0); Mean Platelet Volume 9.8; Microcytosis Marked; Platelet Count 289 k/uL (150-450); Poikilocytosis Marked; RBC 2.93 m/uL (3.80-5.40)
[2018-03-25 08:48] LABS: RDW 26.2 % (11.5-15.5)
--- NOTE | 2018-03-25 09:31 | P.CNPUL ---
History of Present Illness Consult date: 03/25/18 Requesting physician: Edwin Wade Reason for consult: other (Critical care management) Chief complaint: Weakness, near-syncope History of present illness: This is a very pleasant 47-year-old female patient who follows with Dr. Cherry as her primary care physician. She has a history of chronic bronchial asthma, previous history of right hemorrhagic ovarian mass with right ovarian torsion and left simple cyst status post right salpingo-oophorectomy and drainage of the left ovarian cyst back in 2014. She is also had a hysterectomy. She presented here to the emergency room yesterday after developing significant weakness and recurrent syncopal episodes while trying to ambulate within her home. She felt as though she had obtained some illness from her mother mostly upper respiratory symptoms. She was found to have significant severe anemia with a hemoglobin of 2.2 on arrival. Other significant abnormalities included elevated LFTs with an AST of 2229, ALT 1887, alk phos 146, LDH 7038, troponin 0.083, 0.168. D-dimer 1.75. Computed tomography scan of the brain revealed no acute intracranial hemorrhage. Computed tomography angiogram was suboptimal but no central pulmonary embolism noted. There is cardiomegaly with small bilateral pleural effusions right greater than left and mild central venous congestion. Abdominal computed tomography scan revealed no suspicious retroperitoneal fluid collection or hematoma. There is possible acute hemorrhage in the remnant vaginal cuff. New cystic lesions in left lower abdominal wall suspect within the left ovary. Chest x-ray shows mild evidence of congestive heart failure. She is seen today in consultation in the intensive care unit. She is currently awake and alert in no acute distress. She is maintaining good O2 saturations in the 90s on 2 L/m per nasal cannula. She has an IV of 0.9 normal saline at 50 MLS per hour. She is status post 4 units of packed red blood cells. Current hemoglobin 7.1. No evidence of any acute bleeding. She currently denies any shortness of breath, cough or congestion. No chest pain or palpitations. She does feel still quite weak and fatigued. INPUT OUTPUT CLERK consult pending. Review of Systems Eyes: denies blurred vision, denies decreased vision Ears: deny: decreased hearing Ears, nose, mouth and throat: Denies headache, Denies sore throat Cardiovascular: Reports dyspnea on exertion, Reports lightheadedness Respiratory: Denies cough Gastrointestinal: Denies abdominal pain, Denies diarrhea, Denies nausea, Denies vomiting Genitourinary: Denies dysuria, Denies hematuria Menstruation: Reports post hysterectomy Musculoskeletal: Denies myalgias Integumentary: Denies pruritus, Denies rash Neurological: Denies numbness, Denies weakness Psychiatric: Denies anxiety, Denies depression Endocrine: Denies fatigue, Denies weight change Hematologic/Lymphatic: Reports as per HPI Allergic/Immunologic: Reports as per HPI Past Medical History Past Medical History: Asthma, GERD/Reflux Additional Past Medical History / Comment(s): falls, still has lt ovary. pne vaccine-not sure of date History of Any Multi-Drug Resistant Organisms: None Reported Past Surgical History: Hysterectomy, Tubal Ligation Additional Past Surgical History / Comment(s): rt fallopian tube and ovary removed, uterus removed still has lt ovary but did have cyst removed off that one Past Anesthesia/Blood Transfusion Reactions: Motion Sickness Smoking Status: Never smoker - Past Family History Mother Family Medical History: Unable to Obtain Additional Family Medical History / Comment(s): pt was adopted Medications and Allergies Home Medications Medication Instructions Recorded Confirmed Type Dextroamphetamine/Amphetamine 20 mg PO BID 06/27/15 03/24/18 History [Adderall] Albuterol Inhaler [Ventolin Hfa 2 puff INHALATION RT-Q6H PRN 07/18/15 03/24/18 History Inhaler] Allergies Allergy/AdvReac Type Severity Reaction Status Date / Time codeine Allergy Nausea & Verified 03/24/18 12:07 Vomiting Physical Exam Vitals: Vital Signs Temp Pulse Resp BP Pulse Ox 03/25/18 09:00 90 25 H 122/51 97 03/25/18 08:00 98.1 F 87 22 118/58 99 03/25/18 07:51 24 03/25/18 07:30 78 03/25/18 07:21 76 03/25/18 07:00 75 24 117/56 98 03/25/18 06:00 72 22 118/50 99 03/25/18 05:00 76 22 119/58 98 03/25/18 04:00 98.7 F 74 13 102/41 98 03/25/18 03:00 82 24 117/58 98 03/25/18 02:00 82 24 115/59 97 08/18/18 01:23 82 08/18/18 01:13 82 08/18/18 01:00 80 24 119/50 100 /18/18 00:47 98.3 F 82 20 119/50 100 18/18 00:00 98.3 F 87 22 120/57 100 /17/18 23:13 89 20 118/57 100 17/18 23:00 83 22 118/57 100 17/18 22:42 98.7 F 85 18 118/57 17/18 22:24 90 16 124/50 17/18 22:12 99 F 70 18 118/58 100 /17/18 22:02 99.4 F 70 16 116/58 100 17/18 22:00 82 18 109/49 100 17/18 21:46 98.0 F 83 18 109/49 100 17/18 21:40 98.0 F 85 20 109/49 100 17/18 21:30 85 21 109/49 100 03/24/18 21:00 89 20 121/66 100 03/24/18 20:00 99.2 F 99 35 H 123/50 100 17/18 19:49 99.2 F 88 19 123/50 100 17/18 19:19 98.7 F 86 20 123/50 17/18 19:13 80 17/18 19:10 87 16 133/58 100 17/18 19:09 98.1 F 87 18 133/58 100 17/18 19:02 90 17/18 18:28 97.8 F 92 18 138/70 96 17/18 16:03 86 16 136/77 97 17/18 15:45 98.2 F 90 16 131/62 100 17/18 15:15 98.2 F 89 17 132/62 17/18 15:05 98.6 F 88 16 134/60 17/18 15:02 98.8 F 92 16 140/65 100 17/18 14:38 98.4 F 87 16 136/62 17/18 12:52 97.7 F 92 18 130/80 100 17/18 12:22 97.8 F 96 16 127/60 100 17/18 12:12 97 18 128/61 03/24/18 12:09 98.8 F 98 18 122/54 03/24/18 11:09 99 18 118/56 98 03/24/18 10:07 98.8 F 101 H 20 128/59 100 Intake and Output 03/24/18 03/25/18 03/25/18 22:59 06:59 14:59 Intake Total 1740 1770 50 Output Total 770 2760 60 Balance 970 -990 -10 Intake: IV 300 550 50 Sodium Chloride 0.9% 1, 300 550 50 000 ml @ 100 mls/hr IV . Q10H STA Rx#:[id number] Oral 400 600 Blood Product 930 620 Rc As-1 Unit 310 [id number] Rc As-1 Unit 0 310 [id number] Rc As-1 Unit 310 [id number] Other 110 Rc As-1 Unit 110 [id number] Output: Urine 770 2760 60 Other: Voiding Method Indwelling Catheter Indwelling Catheter Indwelling Catheter Weight 85.9 kg GENERAL EXAM: Alert, weak, comfortable in no apparent distress. HEAD: Normocephalic. EYES: Normal reaction of pupils, equal size. NOSE: Clear with pink turbinates. THROAT: No erythema or exudates. NECK: No masses, no JVD. CHEST: No chest wall deformity. LUNGS: Equal air entry with no crackles, wheeze, rhonchi or dullness. CVS: S1 and S2 normal with no audible murmur, regular rhythm. ABDOMEN: No hepatosplenomegaly, normal bowel sounds, no guarding or rigidity. SPINE: No scoliosis or deformity SKIN: No rashes CENTRAL NERVOUS SYSTEM: No focal deficits, tone is normal in all 4 extremities. EXTREMITIES: There is no peripheral edema. No clubbing, no cyanosis. Peripheral pulses are intact. Results - Laboratory Findings CBC and BMP: 03/25/18 08:30 03/25/18 04:22 PT/INR, D-dimer PT 12.3 sec (9.0-12.0) H 03/24/18 10:25 INR 1.3 (<1.2) H 03/24/18 10:25 D-Dimer 1.75 mg/L FEU (<0.60) H 03/24/18 10:25 Abnormal lab findings: Abnormal Labs 08/03/24/18 03/24/18 10:25 10:25 10:25 RBC 1.68 L Hgb 2.2 L* Hct 9.4 L* MCV 55.9 L MCH 13.3 L MCHC 23.8 L RDW 19.2 H Plt Count 488 H Neutrophils # (Manual) 8.92 H Lymphocytes # (Manual) 0.49 L Myelocytes # (Manual) Nucleated RBCs Retic Count PT INR APTT D-Dimer Sodium 135 L Potassium Carbon Dioxide 16 L Glucose 119 H POC Glucose (mg/dL) Plasma Lactic Acid Zay Calcium Magnesium 2.4 H Total Bilirubin AST 2229 H ALT 1887 H Alkaline Phosphatase 146 H Lactate Dehydrogenase Troponin I 0.083 H* Total Protein 6.1 L Albumin Urine Protein Urine Ketones Crossmatch 03/24/18 03/24/18 03/24/18 10:25 10:25 10:25 RBC Hgb Hct MCV MCH MCHC RDW Plt Count Neutrophils # (Manual) Lymphocytes # (Manual) Myelocytes # (Manual) Nucleated RBCs Retic Count PT 12.3 H INR 1.3 H APTT 21.6 L D-Dimer 1.75 H Sodium Potassium Carbon Dioxide Glucose POC Glucose (mg/dL) Plasma Lactic Acid Zay 8.3 H* Calcium Magnesium Total Bilirubin AST ALT Alkaline Phosphatase Lactate Dehydrogenase Troponin I Total Protein Albumin Urine Protein Urine Ketones Crossmatch See Detail 03/24/18 03/24/18 03/24/18 10:25 10:25 13:38 RBC Hgb Hct MCV MCH MCHC RDW Plt Count Neutrophils # (Manual) Lymphocytes # (Manual) Myelocytes # (Manual) Nucleated RBCs Retic Count 5.0 H PT INR APTT D-Dimer Sodium Potassium Carbon Dioxide Glucose POC Glucose (mg/dL) Plasma Lactic Acid Zay Calcium Magnesium Total Bilirubin AST ALT Alkaline Phosphatase Lactate Dehydrogenase 7038 H Troponin I Total Protein Albumin Urine Protein Trace H Urine Ketones Trace H Crossmatch 03/24/18 03/25/18 03/25/18 18:46 02:14 04:22 RBC 2.86 L Hgb 7.0 L* D Hct 22.2 L MCV 77.5 L D MCH 24.5 L MCHC RDW 27.0 H Plt Count Neutrophils # (Manual) Lymphocytes # (Manual) Myelocytes # (Manual) 0.07 H Nucleated RBCs 5 H Retic Count PT INR APTT D-Dimer Sodium 135 L Potassium 3.2 L Carbon Dioxide Glucose 103 H POC Glucose (mg/dL) 122 H Plasma Lactic Acid Zay Calcium 7.8 L Magnesium Total Bilirubin 2.0 H AST 1104 H ALT 1449 H Alkaline Phosphatase 148 H Lactate Dehydrogenase Troponin I Total Protein 5.5 L Albumin 3.0 L Urine Protein Urine Ketones Crossmatch 03/25/18 03/25/18 04:22 08:30 RBC 2.93 L Hgb 7.1 L Hct 22.5 L MCV 76.9 L MCH 24.4 L MCHC RDW 26.2 H Plt Count Neutrophils # (Manual) Lymphocytes # (Manual) Myelocytes # (Manual) Nucleated RBCs Retic Count PT INR APTT D-Dimer Sodium Potassium Carbon Dioxide Glucose POC Glucose (mg/dL) Plasma Lactic Acid Zay Calcium Magnesium Total Bilirubin AST ALT Alkaline Phosphatase Lactate Dehydrogenase Troponin I 0.168 H* Total Protein Albumin Urine Protein Urine Ketones Crossmatch - Diagnostic Findings Chest x-ray: image reviewed Assessment and Plan Assessment: Impression: #1 Severe anemia with a presenting hemoglobin of 2.2 of unclear etiology. Computed tomography scan of the abdomen reveals possible acute hemorrhage in the remnant vaginal cuff. New cystic lesions in the left lower abdomen. Reveals history of right ovarian hemorrhage status post right salpingo- oophorectomy and hysterectomy. Status post 4 units of packed red blood cells with her current hemoglobin of 7.1. #2 Troponin leak with congestive heart failure secondary to above. #3 Elevated LFTs secondary to suspected hypo-profusion #4 history of mild intermittent chronic asthma, currently inactive and stable. Plan: The patient was seen and evaluated by Dr. Comer. CT scans, chest x-ray labs all reviewed. Her hemoglobin is currently stable at 7.1. No plans for transfusion at this time. She could be transferred out of the intensive care unit later today. INPUT OUTPUT CLERK consult pending. We'll consult cardiology regarding the troponin leak and mild vascular congestion. We will continue to follow make further recommendations based on her clinical status. I, the cosigning physician, performed a history & physical examination of the patient. Lungs sounds with faint crackles in the bilateral posterior bases. Maintaining good O2 saturations in the 90s on room air. I discussed the assessment and plan of care with my nurse practitioner, Court Salcedo. I attest to the above note as dictated by her. Time with Patient: Greater than 30
[2018-03-25] MEDS: PANTOPRAZOLE 40 MG/10 ML VIAL IVP SCH ×2 (09:43→22:20)
[2018-03-25 10:18] LABS: Band Neutrophils % 1 %; Eosinophils # (M) 0.09 k/uL (0-0.7); Lymphocytes # (M) 0.61 k/uL (1.0-4.8); Metamyelocytes # (M) 0.09 k/uL (0); Metamyelocytes % 1 %; Monocytes # (M) 0.35 k/uL (0-1.0); Myelocytes # (M) 0.09 k/uL (0); Myelocytes % 1 %; Neutrophils % (M) 87 %; Nucleated Red Blood Cells 1 /100 WBC (0-0); Total Cells Counted 200; WBC 8.7 k/uL (3.8-10.6)
[2018-03-25 10:19] LABS: Hypersegmented Neutrophils Present; Mixed Population RBC Present
[2018-03-25 10:20] LABS: Polychromasia Present
--- NOTE | 2018-03-25 10:20 | US ---
EXAMINATION TYPE: US pelvis complete transvag DATE OF EXAM: 03/25/2018 COMPARISON: Previous study dated 06/27/2015. CLINICAL HISTORY: anemia bleeding. Right oophorectomy 2 years ago, hysterectomy 16 years ago. Cystic lesion left pelvis visualized on recent CT TECHNIQUE: Transvaginal (TV) and Transabdominal (TA) - TV exam done due to Pérez Catheter, TA scanni ng done to better visualize left ovary Date of LMP: unknown EXAM MEASUREMENTS: Uterus: Surgically absent Endometrial Stripe: Surgically absent Right Ovary: Surgically absent Left Ovary: 1. Uterus: Surgically absent 2. Endometrium: Surgically absent 3. Right Ovary: Surgically absent 4. Left Ovary/left adnexa: complex area = 4.9 x 4.3 x 4.1cm *Free fluid noted *Possible hypoechoic area ML/left near vaginal cuff = 0.8cm IMPRESSION: 1. STATUS POST HYSTERECTOMY AND RIGHT OOPHORECTOMY. 2. SOLID APPEARING MASS IN THE LEFT ADNEXA MAY REPRESENT A SOLID LESION OR HEMORRHAGIC CYST. 3. FREE FLUID WITHIN THE CUL-DE-SAC. 4. SHORT-TERM FOLLOW-UP WOULD BE SUGGESTED.
[2018-03-25] MEDS: FOLIC ACID 1 MG TAB PO SCH (10:54)
[2018-03-25] MEDS: MULTIVITAMINS, THERA 1 EACH TAB PO SCH (10:54)
--- NOTE | 2018-03-25 11:16 | P.PN ---
Subjective Progress Note Date: 03/25/18 Patient reported that she is feeling better and have improve energy level since transfusion. Patient denies bleeding from her vagina or rectal area. Patient denies change in the color of the stools or noticing dark/black foul-smelling stools. Patient reports that she had viral/flulike illness about couple weeks ago when she was with her mother and thought that she is catching flu from her mother. Patient stated but she never double up full symptoms and initial flulike illness resolved. Patient was seen by pulmonary critical care Dr. Comer and his input appreciated. Also noted that patient troponin is slightly on the rise despite of transfusion. Low potassium was also noted today and improving liver enzymes. Patient acidosis is resolved with resolving anion gap. Patient denies chest pain at this point in time but due to reports having vague left-sided and left back pain off and on for past week or so. Patient thought it could be because of her dry heaving and did not pay any further attention. Patient denies palpitation at this time, denies diaphoresis, fever, chills, nausea, vomiting, diarrhea and denies rest of the review of system. Objective - Vital Signs Vital signs: Vital Signs Temp 98.1 F 03/25/18 08:00 Pulse 86 03/25/18 10:00 Resp 17 03/25/18 10:00 BP 113/50 03/25/18 10:00 Pulse Ox 93 L 03/25/18 10:00 Intake & Output 03/24/18 03/25/18 03/25/18 18:59 06:59 18:59 Intake Total 830 3090 400 Output Total 1020 3060 260 Balance -190 30 140 Weight 73.482 kg 85.9 kg Intake: IV 850 150 Sodium Chloride 0.9% 1, 850 50 000 ml @ 100 mls/hr IV . Q10H STA Rx#:[id number] Sodium Chloride 0.9% 1, 100 000 ml @ 50 mls/hr IV . Q20H GIANLUCA Rx#:[id number] Oral 1000 250 Blood Product 620 1240 Rc As-1 Unit 310 [id number] Rc As-1 Unit 310 [id number] Rc As-1 Unit 310 [id number] Rc As-1 Unit 310 [id number] Other 210 Rc As-1 Unit 100 [id number] Rc As-1 Unit 110 [id number] Output: Urine 1020 3060 260 Other: Voiding Method Indwelling Catheter Indwelling Catheter Indwelling Catheter - Constitutional General appearance: Present: average body habitus, cooperative, no acute distress - EENT Eyes: Present: EOMI, normal appearance - Respiratory Respiratory: bilateral: CTA, negative: dullness, rales, rhonchi, wheezing - Cardiovascular Rhythm: regular Heart sounds: normal: S1, S2 Abnormal Heart Sounds: Absent: systolic murmur, diastolic murmur, rub, S3 Gallop , S4 Gallop, click - Gastrointestinal General gastrointestinal: Present: normal bowel sounds, soft. Absent: distended , organomegaly, rigid, tenderness - Neurologic Neurologic: Present: CNII-XII intact. Absent: focal deficits - Psychiatric Psychiatric: Present: A&O x's 3, appropriate affect, intact judgment & insight - Allied health notes Allied health notes reviewed: nursing - Labs CBC & Chem 7: 03/25/18 08:30 03/25/18 04:22 Labs: Abnormal Lab Results - Last 24 Hours (Table) 03/24/18 03/24/18 03/24/18 Range/Units 10:25 10:25 10:25 RBC 1.68 L (3.80-5.40) m/uL Hgb 2.2 L* (11.4-16.0) gm/dL Hct 9.4 L* (34.0-46.0) % MCV 55.9 L (80.0-100.0) fL MCH 13.3 L (25.0-35.0) pg MCHC 23.8 L (31.0-37.0) g/dL RDW 19.2 H (11.5-15.5) % Plt Count 488 H (150-450) k/uL Neutrophils # (Manual) 8.92 H (1.3-7.7) k/uL Lymphocytes # (Manual) 0.49 L (1.0-4.8) k/uL Metamyelocytes # (Man) (0) k/uL Myelocytes # (Manual) (0) k/uL Nucleated RBCs (0-0) /100 WBC Retic Count (0.5-2.0) % PT (9.0-12.0) sec INR (<1.2) APTT (22.0-30.0) sec D-Dimer (<0.60) mg/L FEU Sodium 135 L (137-145) mmol/L Potassium (3.5-5.1) mmol/L Carbon Dioxide 16 L (22-30) mmol/L Glucose 119 H (74-99) mg/dL POC Glucose (mg/dL) (75-99) mg/dL Plasma Lactic Acid Zay (0.7-2.0) mmol/L Calcium (8.4-10.2) mg/dL Magnesium 2.4 H (1.6-2.3) mg/dL Iron (50-170) ug/dL TIBC (228-460) ug/dL Iron Saturation (12.00-45.00) Ferritin (10.0-291.0) ng/mL Total Bilirubin (0.2-1.3) mg/dL AST 2229 H (14-36) U/L ALT 1887 H (9-52) U/L Alkaline Phosphatase 146 H (38-126) U/L Lactate Dehydrogenase (313-618) U/L Troponin I 0.083 H* (0.000-0.034) ng/mL Total Protein 6.1 L (6.3-8.2) g/dL Albumin (3.5-5.0) g/dL Urine Protein (Negative) Urine Ketones (Negative) Crossmatch 03/24/18 03/24/18 03/24/18 Range/Units 10:25 10:25 10:25 RBC (3.80-5.40) m/uL Hgb (11.4-16.0) gm/dL Hct (34.0-46.0) % MCV (80.0-100.0) fL MCH (25.0-35.0) pg MCHC (31.0-37.0) g/dL RDW (11.5-15.5) % Plt Count (150-450) k/uL Neutrophils # (Manual) (1.3-7.7) k/uL Lymphocytes # (Manual) (1.0-4.8) k/uL Metamyelocytes # (Man) (0) k/uL Myelocytes # (Manual) (0) k/uL Nucleated RBCs (0-0) /100 WBC Retic Count (0.5-2.0) % PT 12.3 H (9.0-12.0) sec INR 1.3 H (<1.2) APTT 21.6 L (22.0-30.0) sec D-Dimer 1.75 H (<0.60) mg/L FEU Sodium (137-145) mmol/L Potassium (3.5-5.1) mmol/L Carbon Dioxide (22-30) mmol/L Glucose (74-99) mg/dL POC Glucose (mg/dL) (75-99) mg/dL Plasma Lactic Acid Zay 8.3 H* (0.7-2.0) mmol/L Calcium (8.4-10.2) mg/dL Magnesium (1.6-2.3) mg/dL Iron (50-170) ug/dL TIBC (228-460) ug/dL Iron Saturation (12.00-45.00) Ferritin (10.0-291.0) ng/mL Total Bilirubin (0.2-1.3) mg/dL AST (14-36) U/L ALT (9-52) U/L Alkaline Phosphatase (38-126) U/L Lactate Dehydrogenase (313-618) U/L Troponin I (0.000-0.034) ng/mL Total Protein (6.3-8.2) g/dL Albumin (3.5-5.0) g/dL Urine Protein (Negative) Urine Ketones (Negative) Crossmatch See Detail 03/24/18 03/24/18 03/24/18 Range/Units 10:25 10:25 10:25 RBC (3.80-5.40) m/uL Hgb (11.4-16.0) gm/dL Hct (34.0-46.0) % MCV (80.0-100.0) fL MCH (25.0-35.0) pg MCHC (31.0-37.0) g/dL RDW (11.5-15.5) % Plt Count (150-450) k/uL Neutrophils # (Manual) (1.3-7.7) k/uL Lymphocytes # (Manual) (1.0-4.8) k/uL Metamyelocytes # (Man) (0) k/uL Myelocytes # (Manual) (0) k/uL Nucleated RBCs (0-0) /100 WBC Retic Count 5.0 H (0.5-2.0) % PT (9.0-12.0) sec INR (<1.2) APTT (22.0-30.0) sec D-Dimer (<0.60) mg/L FEU Sodium (137-145) mmol/L Potassium (3.5-5.1) mmol/L Carbon Dioxide (22-30) mmol/L Glucose (74-99) mg/dL POC Glucose (mg/dL) (75-99) mg/dL Plasma Lactic Acid Zay (0.7-2.0) mmol/L Calcium (8.4-10.2) mg/dL Magnesium (1.6-2.3) mg/dL Iron 7 L (50-170) ug/dL TIBC 467 H (228-460) ug/dL Iron Saturation 1.50 L (12.00-45.00) Ferritin 9.2 L (10.0-291.0) ng/mL Total Bilirubin (0.2-1.3) mg/dL AST (14-36) U/L ALT (9-52) U/L Alkaline Phosphatase (38-126) U/L Lactate Dehydrogenase 7038 H (313-618) U/L Troponin I (0.000-0.034) ng/mL Total Protein (6.3-8.2) g/dL Albumin (3.5-5.0) g/dL Urine Protein (Negative) Urine Ketones (Negative) Crossmatch 03/24/18 03/24/18 03/25/18 Range/Units 13:38 18:46 02:14 RBC 2.86 L (3.80-5.40) m/uL Hgb 7.0 L* D (11.4-16.0) gm/dL Hct 22.2 L (34.0-46.0) % MCV 77.5 L D (80.0-100.0) fL MCH 24.5 L (25.0-35.0) pg MCHC (31.0-37.0) g/dL RDW 27.0 H (11.5-15.5) % Plt Count (150-450) k/uL Neutrophils # (Manual) (1.3-7.7) k/uL Lymphocytes # (Manual) (1.0-4.8) k/uL Metamyelocytes # (Man) (0) k/uL Myelocytes # (Manual) 0.07 H (0) k/uL Nucleated RBCs 5 H (0-0) /100 WBC Retic Count (0.5-2.0) % PT (9.0-12.0) sec INR (<1.2) APTT (22.0-30.0) sec D-Dimer (<0.60) mg/L FEU Sodium (137-145) mmol/L Potassium (3.5-5.1) mmol/L Carbon Dioxide (22-30) mmol/L Glucose (74-99) mg/dL POC Glucose (mg/dL) 122 H (75-99) mg/dL Plasma Lactic Acid Zay (0.7-2.0) mmol/L Calcium (8.4-10.2) mg/dL Magnesium (1.6-2.3) mg/dL Iron (50-170) ug/dL TIBC (228-460) ug/dL Iron Saturation (12.00-45.00) Ferritin (10.0-291.0) ng/mL Total Bilirubin (0.2-1.3) mg/dL AST (14-36) U/L ALT (9-52) U/L Alkaline Phosphatase (38-126) U/L Lactate Dehydrogenase (313-618) U/L Troponin I (0.000-0.034) ng/mL Total Protein (6.3-8.2) g/dL Albumin (3.5-5.0) g/dL Urine Protein Trace H (Negative) Urine Ketones Trace H (Negative) Crossmatch 03/25/18 03/25/18 03/25/18 Range/Units 04:22 04:22 08:30 RBC 2.93 L (3.80-5.40) m/uL Hgb 7.1 L (11.4-16.0) gm/dL Hct 22.5 L (34.0-46.0) % MCV 76.9 L (80.0-100.0) fL MCH 24.4 L (25.0-35.0) pg MCHC (31.0-37.0) g/dL RDW 26.2 H (11.5-15.5) % Plt Count (150-450) k/uL Neutrophils # (Manual) (1.3-7.7) k/uL Lymphocytes # (Manual) 0.61 L (1.0-4.8) k/uL Metamyelocytes # (Man) 0.09 H (0) k/uL Myelocytes # (Manual) 0.09 H (0) k/uL Nucleated RBCs 1 H (0-0) /100 WBC Retic Count (0.5-2.0) % PT (9.0-12.0) sec INR (<1.2) APTT (22.0-30.0) sec D-Dimer (<0.60) mg/L FEU Sodium 135 L (137-145) mmol/L Potassium 3.2 L (3.5-5.1) mmol/L Carbon Dioxide (22-30) mmol/L Glucose 103 H (74-99) mg/dL POC Glucose (mg/dL) (75-99) mg/dL Plasma Lactic Acid Zay (0.7-2.0) mmol/L Calcium 7.8 L (8.4-10.2) mg/dL Magnesium (1.6-2.3) mg/dL Iron (50-170) ug/dL TIBC (228-460) ug/dL Iron Saturation (12.00-45.00) Ferritin (10.0-291.0) ng/mL Total Bilirubin 2.0 H (0.2-1.3) mg/dL AST 1104 H (14-36) U/L ALT 1449 H (9-52) U/L Alkaline Phosphatase 148 H (38-126) U/L Lactate Dehydrogenase (313-618) U/L Troponin I 0.168 H* (0.000-0.034) ng/mL Total Protein 5.5 L (6.3-8.2) g/dL Albumin 3.0 L (3.5-5.0) g/dL Urine Protein (Negative) Urine Ketones (Negative) Crossmatch Assessment and Plan (1) NSTEMI (non-ST elevated myocardial infarction) Narrative/Plan: Progressively increasing troponins despite of improving hemoglobin with transfusion, patient also has some vascular congestion in her lungs on x-ray could be related to demand ischemia from critical anemia and leakage of enzymes but will consult cardiology services for their input and recommendations care coordinated with on-call automotive collision estimator. EKG and 2-D echo will also be done to evaluate cardiac function. Current Visit: Yes Status: Acute Priority: High Code(s): I21.4 - NON-ST ELEVATION (NSTEMI) MYOCARDIAL INFARCTION SNOMED Code(s): 864035605 (2) Hypokalemia Narrative/Plan: Normal potassium on arrival but now slightly low potassium levels, patient potassium will be replaced and monitored. Current Visit: Yes Status: Acute Priority: High Code(s): E87.6 - HYPOKALEMIA SNOMED Code(s): 89102055 (3) High anion gap metabolic acidosis Narrative/Plan: Now patient's high anion gap metabolic acidosis resolved with resolution of lactic acidosis. Current Visit: Yes Status: Resolved Priority: Low Code(s): E87.2 - ACIDOSIS SNOMED Code(s): 59680733 (4) Anemia Narrative/Plan: Patient critically anemia could be related to autoimmune hemolytic anemia triggered by flulike illness. I will check peripheral blood smear reviewed by the pathologist and I will order haptoglobin level on the first blood sample drawn yesterday prior to or transfusions. Patient hemoglobin will be monitored and transfused if she drops below 7 g/dL. Current Visit: Yes Status: Acute Priority: High Code(s): D64.9 - ANEMIA, UNSPECIFIED SNOMED Code(s): 887409173 (5) Syncope Narrative/Plan: Symptoms are present because of the critical anemia and now they are resolved. Will increase patient's activity up in the chair as tolerated along with bathroom privileges as tolerated and if patient has no return of symptoms then she will be transferred to medical unit. Current Visit: Yes Status: Resolved Priority: Medium Code(s): R55 - SYNCOPE AND COLLAPSE SNOMED Code(s): 000947188 (6) Transaminitis Narrative/Plan: Patient might have hepatic injury from low hemoglobin and lack of oxygen supply to the liver leading to ischemic injury, since with transfusion hemoglobin improves and patient's liver enzymes are also improving we will continue to monitor. Current Visit: Yes Status: Acute Priority: Medium Code(s): R74.0 - NONSPEC ELEV OF LEVELS OF TRANSAMNS & LACTIC ACID DEHYDRGNSE SNOMED Code(s): 778681704 Plan: Plan as noted above introspective diagnosis sections. Time with Patient: Less than 30
[2018-03-25 12:09] LABS: Hepatitis A Antibody IgM Non-Reactive (Non-Reactive); Hepatitis B Surface AB- Quant 3.5 mIU/mL; Hepatitis C IgG Antibody Non-Reactive (Non-Reactive)
--- NOTE | 2018-03-25 13:21 | P.CRDCN ---
History of Present Illness Consult date: 03/25/18 History of present illness: This is a 47-year-old female with history of bronchial asthma and also history of salpingo-oophorectomy and drainage of left ovarian cyst in 2014. She has history of hysterectomy to. She is admitted to the hospital now with progressive weakness and dizziness and recurrent syncopal episodes while trying to ambulate at home. Patient also had some cough and congestion feeling. In the emergency room patient was found to have significant anemia with hemoglobin of 2.2. Patient was given blood transfusion and hemoglobin is around 79. A cardiology consult is requested because of abnormal troponin values here patient denies any chest pain or shortness of breath. At the time of my examination patient seemed to be comfortable. Most probably the troponin elevation is secondary to demand supply mismatch. Her EKG showed sinus rhythm without acute changes. An echocardiogram is being done Review of Systems As per the chart Past Medical History Past Medical History: Asthma, GERD/Reflux Additional Past Medical History / Comment(s): falls, still has lt ovary. pne vaccine-not sure of date History of Any Multi-Drug Resistant Organisms: None Reported Past Surgical History: Hysterectomy, Tubal Ligation Additional Past Surgical History / Comment(s): rt fallopian tube and ovary removed, uterus removed still has lt ovary but did have cyst removed off that one Past Anesthesia/Blood Transfusion Reactions: Motion Sickness Smoking Status: Never smoker - Past Family History Mother Family Medical History: Unable to Obtain Additional Family Medical History / Comment(s): pt was adopted Medications and Allergies Home Medications Medication Instructions Recorded Confirmed Type Dextroamphetamine/Amphetamine 20 mg PO BID 06/27/15 03/24/18 History [Adderall] Albuterol Inhaler [Ventolin Hfa 2 puff INHALATION RT-Q6H PRN 07/18/15 03/24/18 History Inhaler] Allergies Allergy/AdvReac Type Severity Reaction Status Date / Time codeine Allergy Nausea & Verified 03/24/18 12:07 Vomiting Physical Exam Vitals: Vital Signs Temp Pulse Pulse Resp BP BP Pulse Ox 03/25/18 11:52 99.2 F 78 16 132/64 98 03/25/18 11:00 79 21 114/51 94 L 03/25/18 10:00 86 17 113/50 93 L 03/25/18 09:00 90 25 H 122/51 97 08/18/18 08:00 98.1 F 87 22 118/58 99 08/18/18 07:51 24 08/18/18 07:30 78 08/18/18 07:21 76 081818 07:00 75 24 117/56 98 08/18/18 06:00 72 22 118/50 99 1818 05:00 76 22 119/58 98 /18/18 04:00 98.7 F 74 13 102/41 98 /18/18 03:00 82 24 117/58 98 18/18 02:00 82 24 115/59 97 /18/18 01:23 82 08/18/18 01:13 82 /18/18 01:00 80 24 119/50 100 /18/18 00:47 98.3 F 82 20 119/50 100 /18/18 00:00 98.3 F 87 22 120/57 100 /17/18 23:13 89 20 118/57 100 17/18 23:00 83 22 118/57 100 17/18 22:42 98.7 F 85 18 118/57 17/18 22:24 90 16 124/50 03/24/18 22:12 99 F 70 18 118/58 100 03/24/18 22:02 99.4 F 70 16 116/58 100 17/18 22:00 82 18 109/49 100 /17/18 21:46 98.0 F 83 18 109/49 100 /17/18 21:40 98.0 F 85 20 109/49 100 17/18 21:30 85 21 109/49 100 17/18 21:00 89 20 121/66 100 /17/18 20:00 99.2 F 99 35 H 123/50 100 08/17/18 19:49 99.2 F 88 19 123/50 100 08/17/18 19:19 98.7 F 86 20 123/50 08/17/18 19:13 80 08/17/18 19:10 87 16 133/58 100 /17/18 19:09 98.1 F 87 18 133/58 100 08/17/18 19:02 90 08/17/18 18:28 97.8 F 92 18 138/70 96 17/18 16:03 86 16 136/77 97 03/24/18 15:45 98.2 F 90 16 131/62 100 03/24/18 15:15 98.2 F 89 17 132/62 03/24/18 15:05 98.6 F 88 16 134/60 03/24/18 15:02 98.8 F 92 16 140/65 100 03/24/18 14:38 98.4 F 87 16 136/62 Intake and Output 03/24/18 03/25/18 03/25/18 22:59 06:59 14:59 Intake Total 1740 1770 450 Output Total 770 2760 380 Balance 970 -990 70 Intake: IV 300 550 200 Sodium Chloride 0.9% 1, 300 550 50 000 ml @ 100 mls/hr IV . Q10H STA Rx#:[id number] Sodium Chloride 0.9% 1, 150 000 ml @ 50 mls/hr IV . Q20H GIANLUCA Rx#:[id number] Oral 400 600 250 Blood Product 930 620 Rc As-1 Unit 310 [id number] Rc As-1 Unit 0 310 [id number] Rc As-1 Unit 310 [id number] Other 110 Rc As-1 Unit 110 [id number] Output: Urine 770 2760 380 Other: Voiding Method Indwelling Catheter Indwelling Catheter Indwelling Catheter Weight 85.9 kg GENERAL EXAM: Patient is alert and oriented and doesn't appear to be in any acute distress HEENT: Normocephalic. Normal reaction of pupils, equal size, normal range of extraocular motion. No erythema or exudates in the throat. NECK: No masses, no nuchal rigidity. CHEST: No chest wall deformity. LUNGS: Equal air entry with no crackles or wheeze. HEART: S1 and S2 normal with no audible mumurs or gallops. Regular rhythm, femorals equal on both sides.. ABDOMEN: No hepatosplenomegaly, normal bowel sounds, no guarding or rigidity. SKIN: No rashes CENTRAL NERVOUS SYSTEM: No focal deficits. EXTREMITIES: No cyanosis, clubbing or edema. Results 03/25/18 08:30 03/25/18 04:22 Cardiac Enzymes 03/24/18 03/25/18 03/25/18 Range/Units 10:25 04:22 04:22 AST 1104 H (14-36) U/L Lactate Dehydrogenase 7038 H (313-618) U/L Troponin I 0.168 H* (0.000-0.034) ng/mL CBC 03/25/18 03/25/18 Range/Units 02:14 08:30 WBC 6.7 8.7 (3.8-10.6) k/uL RBC 2.86 L 2.93 L (3.80-5.40) m/uL Hgb 7.0 L* D 7.1 L (11.4-16.0) gm/dL Hct 22.2 L 22.5 L (34.0-46.0) % Plt Count 353 289 (150-450) k/uL Comprehensive Metabolic Panel 03/25/18 Range/Units 04:22 Sodium 135 L (137-145) mmol/L Potassium 3.2 L (3.5-5.1) mmol/L Chloride 103 (98-107) mmol/L Carbon Dioxide 22 (22-30) mmol/L BUN 12 (7-17) mg/dL Creatinine 0.70 (0.52-1.04) mg/dL Glucose 103 H (74-99) mg/dL Calcium 7.8 L (8.4-10.2) mg/dL AST 1104 H (14-36) U/L ALT 1449 H (9-52) U/L Alkaline Phosphatase 148 H (38-126) U/L Total Protein 5.5 L (6.3-8.2) g/dL Albumin 3.0 L (3.5-5.0) g/dL Current Medications Generic Name Dose Route Start Last Admin Trade Name Freq PRN Reason Stop Dose Admin Albuterol/Ipratropium 3 ml 03/24/18 15:18 03/25/18 07:19 Duoneb 0.5 Mg-3 Mg/3 Ml Soln INHALATION 3 ml RT-Q4H PRN Administration Shortness Of Breath Or Wheezing Folic Acid 1 mg 03/24/18 17:00 03/25/18 10:54 Folic Acid PO 1 mg DAILY@1200 GIANLUCA Administration Sodium Chloride 1,000 mls @ 50 mls/hr 03/24/18 22:00 03/25/18 08:19 Saline 0.9% IV 50 mls/hr .Q20H GIANLUCA Administration Miscellaneous Information 1 each 03/25/18 05:30 Potassium Per Protocol MISCELLANE DAILY PRN Per Protocol Protocol Multivitamins 1 each 03/24/18 17:00 03/25/18 10:54 Theragran PO 1 each DAILY@1200 GIANLUCA Administration Naloxone HCl 0.2 mg 03/24/18 15:18 Narcan IV Q2M PRN Opioid Reversal Pantoprazole Sodium 40 mg 03/24/18 21:00 03/25/18 09:43 Protonix IVP 40 mg BID GIANLUCA Administration Intake and Output 03/24/18 03/25/18 03/25/18 22:59 06:59 14:59 Intake Total 1740 1770 450 Output Total 770 2760 380 Balance 970 -990 70 Intake: IV 300 550 200 Sodium Chloride 0.9% 1, 300 550 50 000 ml @ 100 mls/hr IV . Q10H STA Rx#:[id number] Sodium Chloride 0.9% 1, 150 000 ml @ 50 mls/hr IV . Q20H GIANLUCA Rx#:[id number] Oral 400 600 250 Blood Product 930 620 Rc As-1 Unit 310 [id number] Rc As-1 Unit 0 310 [id number] Rc As-1 Unit 310 [id number] Other 110 Rc As-1 Unit 110 [id number] Output: Urine 770 2760 380 Other: Voiding Method Indwelling Catheter Indwelling Catheter Indwelling Catheter Weight 85.9 kg 03/25/18 08:30 03/25/18 04:22 EKG Interpretations (text) Sinus rhythm and sinus tachycardia Assessment and Plan Assessment: This patient is admitted with severe anemia. We're asked to see the patient because of abnormal troponins. His troponin values are mildly elevated. Most probably secondary to demand supply mismatch related to anemia. EKG did not reveal any acute changes. We'll get an echocardiogram done. Further recommendations depend upon the clinical course
--- NOTE | 2018-03-25 13:31 | P.OBCN ---
History of Present Illness Consult date: 03/25/18 Reason for consult: other (anemia, ovarian cyst) Chief complaint: Fatigue, severe anemia History of present illness: This is a 47-year-old female that presented to the emergency department with complaints of overall malaise and just not feeling well. Patient states that she felt like she was getting ill and then all of a sudden was unable to do daily activities. She presented to the emergency department a hemoglobin of 2.2 was obtained. Patient was admitted to the ICU multiple tests were ordered, including CT of the abdomen and pelvis noted questionable acute hemorrhage of the vaginal cuff, and new cystic lesions of the left ovary. Patient has a history of a hysterectomy that was done in [address] Henley and ovaries remain , and in 2014 patient was taken to the operating room for right ovarian hemorrhagic cyst with noted torsion, and drainage of left ovarian cyst. Patient states she has noted no changes in bowel movements no urinary complaints and has been feeling well up to this episode. Patient did receive 4 units of blood since admission and hemoglobin increased from 2.2-7.1 currently and has been stable since last evening. Patient states she is feeling better this morning she denies shortness of breath or lethargy. She has tolerated her lunch without nausea or vomiting. Review of Systems Constitutional: Reports fatigue, Denies chills, Denies fever Gastrointestinal: Denies change in bowel habits, Denies constipation, Denies diarrhea Genitourinary: Denies vaginal discharge (denies VB) Menstruation: Reports as per HPI (h/o hysterecomy year ago) Endocrine: Denies weight change Past Medical History Past Medical History: Asthma, GERD/Reflux Additional Past Medical History / Comment(s): falls, still has lt ovary. pne vaccine-not sure of date History of Any Multi-Drug Resistant Organisms: None Reported Past Surgical History: Hysterectomy, Tubal Ligation Additional Past Surgical History / Comment(s): rt fallopian tube and ovary removed, uterus removed still has lt ovary but did have cyst removed off that one Past Anesthesia/Blood Transfusion Reactions: Motion Sickness Smoking Status: Never smoker - Past Family History Mother Family Medical History: Unable to Obtain Additional Family Medical History / Comment(s): pt was adopted Medications and Allergies Home Medications Medication Instructions Recorded Confirmed Type Dextroamphetamine/Amphetamine 20 mg PO BID 06/27/15 03/24/18 History [Adderall] Albuterol Inhaler [Ventolin Hfa 2 puff INHALATION RT-Q6H PRN 07/18/15 03/24/18 History Inhaler] Allergies Allergy/AdvReac Type Severity Reaction Status Date / Time codeine Allergy Nausea & Verified 03/24/18 12:07 Vomiting Exam Osteopathic Statement: *. No significant issues noted on an osteopathic structural exam other than those noted in the History and Physical/Consult. Vital Signs Temp Pulse Pulse Resp BP BP Pulse Ox 03/25/18 11:52 99.2 F 78 16 132/64 98 03/25/18 11:00 79 21 114/51 94 L 03/25/18 10:00 86 17 113/50 93 L 03/25/18 09:00 90 25 H 122/51 97 03/25/18 08:00 98.1 F 87 22 118/58 99 03/25/18 07:51 24 03/25/18 07:30 78 03/25/18 07:21 76 03/25/18 07:00 75 24 117/56 98 03/25/18 06:00 72 22 118/50 99 03/25/18 05:00 76 22 119/58 98 03/25/18 04:00 98.7 F 74 13 102/41 98 03/25/18 03:00 82 24 117/58 98 03/25/18 02:00 82 24 115/59 97 03/25/18 01:23 82 03/25/18 01:13 82 03/25/18 01:00 80 24 119/50 100 03/25/18 00:47 98.3 F 82 20 119/50 100 03/25/18 00:00 98.3 F 87 22 120/57 100 03/24/18 23:13 89 20 118/57 100 03/24/18 23:00 83 22 118/57 100 03/24/18 22:42 98.7 F 85 18 118/57 03/24/18 22:24 90 16 124/50 03/24/18 22:12 99 F 70 18 118/58 100 03/24/18 22:02 99.4 F 70 16 116/58 100 03/24/18 22:00 82 18 109/49 100 03/24/18 21:46 98.0 F 83 18 109/49 100 03/24/18 21:40 98.0 F 85 20 109/49 100 03/24/18 21:30 85 21 109/49 100 03/24/18 21:00 89 20 121/66 100 03/24/18 20:00 99.2 F 99 35 H 123/50 100 03/24/18 19:49 99.2 F 88 19 123/50 100 03/24/18 19:19 98.7 F 86 20 123/50 03/24/18 19:13 80 03/24/18 19:10 87 16 133/58 100 03/24/18 19:09 98.1 F 87 18 133/58 100 03/24/18 19:02 90 03/24/18 18:28 97.8 F 92 18 138/70 96 03/24/18 16:03 86 16 136/77 97 03/24/18 15:45 98.2 F 90 16 131/62 100 03/24/18 15:15 98.2 F 89 17 132/62 03/24/18 15:05 98.6 F 88 16 134/60 03/24/18 15:02 98.8 F 92 16 140/65 100 03/24/18 14:38 98.4 F 87 16 136/62 Intake and Output 03/24/18 03/25/18 03/25/18 22:59 06:59 14:59 Intake Total 1740 1770 450 Output Total 770 2760 380 Balance 970 -990 70 Intake: IV 300 550 200 Sodium Chloride 0.9% 1, 300 550 50 000 ml @ 100 mls/hr IV . Q10H STA Rx#:[id number] Sodium Chloride 0.9% 1, 150 000 ml @ 50 mls/hr IV . Q20H GIANLUCA Rx#:[id number] Oral 400 600 250 Blood Product 930 620 Rc As-1 Unit 310 [id number] Rc As-1 Unit 0 310 [id number] Rc As-1 Unit 310 [id number] Other 110 Rc As-1 Unit 110 [id number] Output: Urine 770 2760 380 Other: Voiding Method Indwelling Catheter Indwelling Catheter Indwelling Catheter Weight 85.9 kg - OBG Physical Exam Abdomen: bowel sounds normal (soft) Results Result Diagrams: 03/25/18 08:30 03/25/18 04:22 Abnormal Lab Results - Last 24 Hours (Table) 03/24/18 03/24/18 03/24/18 Range/Units 10:25 10:25 10:25 RBC (3.80-5.40) m/uL Hgb (11.4-16.0) gm/dL Hct (34.0-46.0) % MCV (80.0-100.0) fL MCH (25.0-35.0) pg RDW (11.5-15.5) % Lymphocytes # (Manual) (1.0-4.8) k/uL Metamyelocytes # (Man) (0) k/uL Myelocytes # (Manual) (0) k/uL Nucleated RBCs (0-0) /100 WBC Retic Count 5.0 H (0.5-2.0) % Sodium (137-145) mmol/L Potassium (3.5-5.1) mmol/L Glucose (74-99) mg/dL POC Glucose (mg/dL) (75-99) mg/dL Calcium (8.4-10.2) mg/dL Iron (50-170) ug/dL TIBC (228-460) ug/dL Iron Saturation (12.00-45.00) Ferritin (10.0-291.0) ng/mL Total Bilirubin (0.2-1.3) mg/dL AST (14-36) U/L ALT (9-52) U/L Alkaline Phosphatase (38-126) U/L Lactate Dehydrogenase 7038 H (313-618) U/L Troponin I (0.000-0.034) ng/mL Total Protein (6.3-8.2) g/dL Albumin (3.5-5.0) g/dL Urine Protein (Negative) Urine Ketones (Negative) Crossmatch See Detail 03/24/18 03/24/18 03/24/18 Range/Units 10:25 13:38 18:46 RBC (3.80-5.40) m/uL Hgb (11.4-16.0) gm/dL Hct (34.0-46.0) % MCV (80.0-100.0) fL MCH (25.0-35.0) pg RDW (11.5-15.5) % Lymphocytes # (Manual) (1.0-4.8) k/uL Metamyelocytes # (Man) (0) k/uL Myelocytes # (Manual) (0) k/uL Nucleated RBCs (0-0) /100 WBC Retic Count (0.5-2.0) % Sodium (137-145) mmol/L Potassium (3.5-5.1) mmol/L Glucose (74-99) mg/dL POC Glucose (mg/dL) 122 H (75-99) mg/dL Calcium (8.4-10.2) mg/dL Iron 7 L (50-170) ug/dL TIBC 467 H (228-460) ug/dL Iron Saturation 1.50 L (12.00-45.00) Ferritin 9.2 L (10.0-291.0) ng/mL Total Bilirubin (0.2-1.3) mg/dL AST (14-36) U/L ALT (9-52) U/L Alkaline Phosphatase (38-126) U/L Lactate Dehydrogenase (313-618) U/L Troponin I (0.000-0.034) ng/mL Total Protein (6.3-8.2) g/dL Albumin (3.5-5.0) g/dL Urine Protein Trace H (Negative) Urine Ketones Trace H (Negative) Crossmatch 03/25/18 03/25/18 03/25/18 Range/Units 02:14 04:22 04:22 RBC 2.86 L (3.80-5.40) m/uL Hgb 7.0 L* D (11.4-16.0) gm/dL Hct 22.2 L (34.0-46.0) % MCV 77.5 L D (80.0-100.0) fL MCH 24.5 L (25.0-35.0) pg RDW 27.0 H (11.5-15.5) % Lymphocytes # (Manual) (1.0-4.8) k/uL Metamyelocytes # (Man) (0) k/uL Myelocytes # (Manual) 0.07 H (0) k/uL Nucleated RBCs 5 H (0-0) /100 WBC Retic Count (0.5-2.0) % Sodium 135 L (137-145) mmol/L Potassium 3.2 L (3.5-5.1) mmol/L Glucose 103 H (74-99) mg/dL POC Glucose (mg/dL) (75-99) mg/dL Calcium 7.8 L (8.4-10.2) mg/dL Iron (50-170) ug/dL TIBC (228-460) ug/dL Iron Saturation (12.00-45.00) Ferritin (10.0-291.0) ng/mL Total Bilirubin 2.0 H (0.2-1.3) mg/dL AST 1104 H (14-36) U/L ALT 1449 H (9-52) U/L Alkaline Phosphatase 148 H (38-126) U/L Lactate Dehydrogenase (313-618) U/L Troponin I 0.168 H* (0.000-0.034) ng/mL Total Protein 5.5 L (6.3-8.2) g/dL Albumin 3.0 L (3.5-5.0) g/dL Urine Protein (Negative) Urine Ketones (Negative) Crossmatch 03/25/18 Range/Units 08:30 RBC 2.93 L (3.80-5.40) m/uL Hgb 7.1 L (11.4-16.0) gm/dL Hct 22.5 L (34.0-46.0) % MCV 76.9 L (80.0-100.0) fL MCH 24.4 L (25.0-35.0) pg RDW 26.2 H (11.5-15.5) % Lymphocytes # (Manual) 0.61 L (1.0-4.8) k/uL Metamyelocytes # (Man) 0.09 H (0) k/uL Myelocytes # (Manual) 0.09 H (0) k/uL Nucleated RBCs 1 H (0-0) /100 WBC Retic Count (0.5-2.0) % Sodium (137-145) mmol/L Potassium (3.5-5.1) mmol/L Glucose (74-99) mg/dL POC Glucose (mg/dL) (75-99) mg/dL Calcium (8.4-10.2) mg/dL Iron (50-170) ug/dL TIBC (228-460) ug/dL Iron Saturation (12.00-45.00) Ferritin (10.0-291.0) ng/mL Total Bilirubin (0.2-1.3) mg/dL AST (14-36) U/L ALT (9-52) U/L Alkaline Phosphatase (38-126) U/L Lactate Dehydrogenase (313-618) U/L Troponin I (0.000-0.034) ng/mL Total Protein (6.3-8.2) g/dL Albumin (3.5-5.0) g/dL Urine Protein (Negative) Urine Ketones (Negative) Crossmatch Assessment and Plan (1) Hemorrhagic cyst of left ovary Current Visit: Yes Status: Acute Code(s): N83.202 - UNSPECIFIED OVARIAN CYST , LEFT SIDE SNOMED Code(s): 566835934 (2) Anemia Current Visit: Yes Status: Acute Priority: High Code(s): D64.9 - ANEMIA, UNSPECIFIED SNOMED Code(s): 275362425 (3) Left ovarian cyst Current Visit: No Status: Acute Code(s): N83.20 - UNSPECIFIED OVARIAN CYSTS * DO NOT USE * SNOMED Code(s): 26696820 Plan: OVA -1 is ordered to evaluate cyst for malignancy given its solid component, if positive she would warrant a city alderman/onc consult. Free fluid is noted in the pelvis, but as she remains hemodynamically stable I don't feel she needs an emergent procedure for this 4cm cyst. We can see her in the office for a follow up pelvic ultrasound and discuss if she needs any further city alderman intervention at that time. Thank you for the kind consult
[2018-03-25] MEDS: ACETAMINOPHEN TAB 325 MG TAB PO PRN (22:51)
[2018-03-25 23:01] LABS: Anisocytosis Marked; HCT 23.5 % (34.0-46.0); HGB 7.3 gm/dL (11.4-16.0); Hypochromasia Marked; MCH 23.9 pg (25.0-35.0); MCV 77.1 fL (80.0-100.0); Mean Platelet Volume 9.2; Microcytosis Marked; Platelet Count 303 k/uL (150-450); Poikilocytosis Marked; RBC 3.04 m/uL (3.80-5.40)
[2018-03-25 23:03] LABS: RDW 26.4 % (11.5-15.5)
[2018-03-25 23:50] LABS: Metamyelocytes # (M) 0.09 k/uL (0); Metamyelocytes % 1 %; Neutrophils % (M) 82 %; Nucleated Red Blood Cells 2 /100 WBC (0-0); Total Cells Counted 200
[2018-03-25 23:51] LABS: Eosinophils # (M) 0.26 k/uL (0-0.7); Large Platelets Present; Lymphocytes # (M) 0.87 k/uL (1.0-4.8); Monocytes # (M) 0.44 k/uL (0-1.0); Neutrophils # (M) 7.13 k/uL (1.3-7.7); Ovalocytes Present; WBC 8.7 k/uL (3.8-10.6)
--- NOTE | 2018-03-26 06:49 | XR ---
EXAMINATION TYPE: XR chest 1V DATE OF EXAM: 03/26/2018 HISTORY: shortness of breath. REFERENCE: Previous study dated 03/25/2018. FINDINGS: There has been previous internal fixation of the left humerus. The heart is mildly enlarged. There is improved aeration of the left lung base. No definite pleural f luid is seen. IMPRESSION: IMPROVED AERATION, LEFT LUNG BASE.
[2018-03-26] MEDS: PANTOPRAZOLE 40 MG/10 ML VIAL IVP SCH ×2 (07:26→20:56)
[2018-03-26] MEDS: MULTIVITAMINS, THERA 1 EACH TAB PO SCH (07:31)
[2018-03-26] MEDS: FOLIC ACID 1 MG TAB PO SCH (07:31)
[2018-03-26 08:35] LABS: ALT 981 U/L (9-52); AST 475 U/L (14-36); Albumin 2.6 g/dL (3.5-5.0); Alkaline Phosphatase 141 U/L (38-126); Anion Gap 6 mmol/L; Bilirubin, Delta 0.4 mg/dL (0.0-0.2); Bilirubin,Unconjugated 0.9 mg/dL (0.0-1.1); Blood Urea Nitrogen 8 mg/dL (7-17); Calcium 7.9 mg/dL (8.4-10.2); Carbon Dioxide 24 mmol/L (22-30); Chloride 107 mmol/L (98-107); Glucose 83 mg/dL (74-99); Sodium 137 mmol/L (137-145); Total Bilirubin 1.3 mg/dL (0.2-1.3); Total Protein 5.1 g/dL (6.3-8.2)
[2018-03-26 09:29] LABS: Anisocytosis Marked; HCT 23.4 % (34.0-46.0); HGB 7.3 gm/dL (11.4-16.0); Hypochromasia Marked; MCV 77.5 fL (80.0-100.0); Mean Platelet Volume 8.6; Microcytosis Marked; Platelet Count 293 k/uL (150-450); Poikilocytosis Marked; RBC 3.02 m/uL (3.80-5.40); WBC 6.3 k/uL (3.8-10.6)
[2018-03-26 09:35] LABS: RDW 26.6 % (11.5-15.5)
--- NOTE | 2018-03-26 09:36 | ECHOF ---
Referral Reason:SOB elev trop MEASUREMENTS -------- HEIGHT: 167.6 cm WEIGHT: 85.7 kg BP: 117/56 RVIDd: 1.9 cm (< 3.3) IVSd: 1.1 cm (0.6 - 1.1) LVIDd: 5.5 cm (3.9 - 5.3) LVPWd: 1.1 cm (0.6 - 1.1) IVSs: 1.2 cm LVIDs: 3.8 cm LVPWs: 1.2 cm LAESV Index (A-L): 46.77 ml/m Ao Diam: 2.6 cm (2.0 - 3.7) AV Cusp: 2.1 cm (1.5 - 2.6) LA Diam: 2.7 cm (2.7 - 3.8) EPSS: 1.5 cm MV E Shashi: 1.29 m/s MV DecT: 302 ms MV A Shashi: 1.06 m/s MV E/A Ratio: 1.22 RAP: 15.00 mmHg RVSP: 62.29 mmHg MV EF SLOPE: 92.32 mm/s (70 - 150) MV EXCURSION: 2.08 cm (> 18.000) FINDINGS -------- Sinus rhythm. This was a technically adequate study. The left ventricle is mildly dilated. There is borderline concentric left ventricular hypertrophy. Overall left ventricular systolic function is normal with, an EF between 55 - 60 %. The right ventricle is normal in size and function. LA is severely dilated >40 ml/m2 The right atrium is markedly enlarged. There is mild aortic valve sclerosis. There is no evidence of aortic regurgitation. There is no e vidence of aortic stenosis. The mitral valve leaflets are mildly thickened. Mild mitral annular calcification present. Mild m itral regurgitation is present. Bqat-zy-ghvtdnkz tricuspid regurgitation present. There is moderate pulmonary hypertension. The r ight ventricular systolic pressure, as measured by Doppler, is 62.29mmHg. Trace/mild (physiologic) pulmonic regurgitation. The aortic root size is normal. The inferior vena cava is dilated with no significant inspiratory collapse which is consistent estima ki right atrial pressure of >20 mmHg. There is no pericardial effusion. CONCLUSIONS -------- 1. Sinus rhythm. 2. This was a technically adequate study. 3. The left ventricle is mildly dilated. 4. There is borderline concentric left ventricular hypertrophy. 5. LA is severely dilated >40 ml/m2 6. The right atrium is markedly enlarged. 7. There is mild aortic valve sclerosis. 8. The mitral valve leaflets are mildly thickened. 9. Mild mitral annular calcification present. 10. Mild mitral regurgitation is present. 11. Wffm-dm-yfsoywlp tricuspid regurgitation present. 12. There is moderate pulmonary hypertension. 13. The right ventricular systolic pressure, as measured by Doppler, is 62.29mmHg. 14. Trace/mild (physiologic) pulmonic regurgitation. 15. The aortic root size is normal. 16. The inferior vena cava is dilated with no significant inspiratory collapse which is consistent es timated right atrial pressure of >20 mmHg. 17. There is no pericardial effusion. FILLER AND TRIMMER: Maynor Jha RDCS
--- NOTE | 2018-03-26 09:39 | P.PN ---
Subjective Progress Note Date: 03/26/18 Patient reports that she is feeling better, able to walk without syncope but does still have some lightheadedness when she tried to get out of the bed. Patient said that she has been sitting on the chair and also went to the bathroom. Patient's some of the lab reports are back which showed high LDH-7038 , haptoglobin-215, reticulocyte count 5% and hemoglobin stable at 7.3 g/dL. Patient's potassium is better and liver enzymes are also improving now AST/ALT both less than 1000. Patient's chest x-ray was done and reported as improved variation. When ultrasound report is back sure solid appearing mass left adnexa , status post hysterectomy and right salpingo-oophorectomy. Differential reported as solid tumor versus blood. Patient was seen by WEBSITE DEVELOPER specialist and OVA1 was ordered and further follow-up as an outpatient was recommended. Patient stated that she does not feel comfortable going home today and she is still weak and dizzy when she ambulates. Patient denies chest pain, palpitation , nausea, vomiting, diarrhea, constipation, fever, chills, diaphoresis and denies rest of the review of system. Objective - Vital Signs Vital signs: Vital Signs Temp 98.2 F 03/26/18 06:20 Pulse 70 03/26/18 06:20 Resp 18 03/26/18 06:20 BP 120/74 03/26/18 06:20 Pulse Ox 98 03/26/18 06:20 Intake & Output 03/25/18 03/26/18 03/26/18 18:59 06:59 18:59 Intake Total 450 Output Total 380 Balance 70 Intake: IV 200 Sodium Chloride 0.9% 1, 50 000 ml @ 100 mls/hr IV . Q10H STA Rx#:[id number] Sodium Chloride 0.9% 1, 150 000 ml @ 50 mls/hr IV . Q20H GIANLUCA Rx#:[id number] Oral 250 Output: Urine 380 Other: Voiding Method Indwelling Catheter Toilet # Voids 1 2 # Bowel Movements 0 - Constitutional General appearance: Present: average body habitus, cooperative, no acute distress - EENT Eyes: Present: EOMI, normal appearance - Neck Neck: Present: normal ROM. Absent: lymphadenopathy, rigidity, stridor, thyromegaly - Respiratory Respiratory: bilateral: CTA, negative: dullness, rales, rhonchi, wheezing - Cardiovascular Rhythm: regular Heart sounds: normal: S1, S2 Abnormal Heart Sounds: Absent: systolic murmur, diastolic murmur, S3 Gallop, S4 Gallop - Gastrointestinal General gastrointestinal: Present: normal bowel sounds, soft. Absent: distended , organomegaly, rigid, tenderness - Neurologic Neurologic: Present: CNII-XII intact. Absent: focal deficits - Psychiatric Psychiatric: Present: A&O x's 3, appropriate affect, intact judgment & insight - Allied health notes Allied health notes reviewed: nursing - Labs CBC & Chem 7: 03/25/18 22:35 03/26/18 07:38 Labs: Abnormal Lab Results - Last 24 Hours (Table) 03/24/18 03/24/18 03/25/18 Range/Units 10:25 10:25 04:22 RBC (3.80-5.40) m/uL Hgb (11.4-16.0) gm/dL Hct (34.0-46.0) % MCV (80.0-100.0) fL MCH (25.0-35.0) pg RDW (11.5-15.5) % Lymphocytes # (Manual) (1.0-4.8) k/uL Metamyelocytes # (Man) (0) k/uL Myelocytes # (Manual) (0) k/uL Nucleated RBCs (0-0) /100 WBC Haptoglobin 215.0 H (31.2-198.0) mg/dL Calcium (8.4-10.2) mg/dL Iron 7 L (50-170) ug/dL TIBC 467 H (228-460) ug/dL Iron Saturation 1.50 L (12.00-45.00) Ferritin 9.2 L (10.0-291.0) ng/mL Delta Bilirubin (0.0-0.2) mg/dL AST (14-36) U/L ALT (9-52) U/L Alkaline Phosphatase (38-126) U/L Total Protein (6.3-8.2) g/dL Albumin (3.5-5.0) g/dL Vitamin B12 2780.0 H (200.0-944.0) pg/mL Crossmatch See Detail 03/25/18 03/25/18 03/26/18 Range/Units 08:30 22:35 07:38 RBC 3.04 L (3.80-5.40) m/uL Hgb 7.3 L (11.4-16.0) gm/dL Hct 23.5 L (34.0-46.0) % MCV 77.1 L (80.0-100.0) fL MCH 23.9 L (25.0-35.0) pg RDW 26.4 H (11.5-15.5) % Lymphocytes # (Manual) 0.61 L 0.87 L (1.0-4.8) k/uL Metamyelocytes # (Man) 0.09 H 0.09 H (0) k/uL Myelocytes # (Manual) 0.09 H (0) k/uL Nucleated RBCs 1 H 2 H (0-0) /100 WBC Haptoglobin (31.2-198.0) mg/dL Calcium 7.9 L (8.4-10.2) mg/dL Iron (50-170) ug/dL TIBC (228-460) ug/dL Iron Saturation (12.00-45.00) Ferritin (10.0-291.0) ng/mL Delta Bilirubin 0.4 H (0.0-0.2) mg/dL AST 475 H (14-36) U/L ALT 981 H (9-52) U/L Alkaline Phosphatase 141 H (38-126) U/L Total Protein 5.1 L (6.3-8.2) g/dL Albumin 2.6 L (3.5-5.0) g/dL Vitamin B12 (200.0-944.0) pg/mL Crossmatch - Imaging and Cardiology Chest x-ray: report reviewed US - abdomen: report reviewed Assessment and Plan (1) Anemia Narrative/Plan: Patient's anemia workup is underway hepatitis panel was negative, as I mentioned earlier LDH more than 7000, haptoglobin 215, reticulocyte slightly above 5%, now hemoglobin is stable at 7.3 no clinical evidence of bleeding and transvaginal ultrasound reported as some fluid in the pelvis which clinically does not account for the significant anemia she presented with. We will consult hematology for their expert advice. Current Visit: Yes Status: Acute Priority: High Code(s): D64.9 - ANEMIA, UNSPECIFIED SNOMED Code(s): 615382163 (2) NSTEMI (non-ST elevated myocardial infarction) Narrative/Plan: Patient was seen by cardiology and 2-D echocardiogram was done reports are pending as their recommendations which depends on echocardiogram report. Clinically patient is improving. Current Visit: Yes Status: Acute Priority: High Code(s): I21.4 - NON-ST ELEVATION (NSTEMI) MYOCARDIAL INFARCTION SNOMED Code(s): 529035120 (3) Hypokalemia Narrative/Plan: Resolved after replacement and today potassium is normal. Current Visit: Yes Status: Resolved Priority: Low Code(s): E87.6 - HYPOKALEMIA SNOMED Code(s): 34695407 (4) High anion gap metabolic acidosis Narrative/Plan: Resolved. Current Visit: Yes Status: Resolved Priority: Low Code(s): E87.2 - ACIDOSIS SNOMED Code(s): 06200456 (5) Syncope Narrative/Plan: No further episodes of syncope reported by the patient but she is still lightheaded and slightly dizzy with change in position recommended good oral intake of fluids and we will continue IV hydration also. Patient was advised to wait few minutes after change in the position before further activity and patient verbalized understanding. Current Visit: Yes Status: Resolved Priority: Medium Code(s): R55 - SYNCOPE AND COLLAPSE SNOMED Code(s): 951935090 (6) Transaminitis Narrative/Plan: Liver enzymes trending down towards less than thousand range. Patient alkaline phosphatase is still around 420. Again at this point no clear evidence of what was the cause of patient's critical anemia along with transaminitis. Current Visit: Yes Status: Acute Priority: Medium Code(s): R74.0 - NONSPEC ELEV OF LEVELS OF TRANSAMNS & LACTIC ACID DEHYDRGNSE SNOMED Code(s): 463611245 Plan: Patient requested to stay in the hospital for 1 or 2 more days until she feels more comfortable going home. Patient stated that she is scared and she is still lightheaded and she doesn't want to fall. I think it is prudent also to keep her for 1 more day and have hematology evaluate the patient by that time we have echocardiogram report back and recommendation from the cardiology also and we will be able to have a better care plan for her was discharged. Possible discharge in 1-2 days. Time with Patient: Less than 30
[2018-03-26 10:20] LABS: Nucleated Red Blood Cells 0 /100 WBC (0-0)
[2018-03-26 10:22] LABS: Basophils # (M) 0.06 k/uL (0-0.2); Eosinophils # (M) 0.32 k/uL (0-0.7); Lymphocytes # (M) 0.82 k/uL (1.0-4.8); Monocytes # (M) 0.25 k/uL (0-1.0); Myelocytes # (M) 0.06 k/uL (0); Myelocytes % 1 %; Neutrophils # (M) 4.85 k/uL (1.3-7.7); Neutrophils % (M) 77 %; Total Cells Counted 200
[2018-03-26 10:24] LABS: Mixed Population RBC Present; Polychromasia Present
[2018-03-26] MEDS: FERROUS SULFATE 325 MG TAB PO SCH ×2 (10:27→16:40)
[2018-03-26] MEDS: SENNOSIDES-DOCUSATE SODIUM 1 EACH TAB PO SCH ×2 (10:27→20:56)
[2018-03-26] MEDS: SODIUM CHLORIDE 0.9% 1,000 ML IV SCH (10:28)
--- NOTE | 2018-03-26 13:19 | P.PN ---
Subjective This is a pleasant 47-year-old female seen resting comfortably in bed in no acute distress. She states yesterday afternoon she felt a mild discomfort in the chest with no radiation to the arms, back, neck or jaw. She denies any associated shortness of breath, palpitations, dizziness, nausea, vomiting or diaphoresis. EKG was obtained at the time of the chest discomfort and revealed normal sinus mechanism with no acute ST or T-wave abnormalities. Echocardiogram obtained reveals preserved left ventricular systolic function with ejection fraction 55-60%, borderline concentric left ventricular hypertrophy was noted with mild MR and mild to moderate TR present. There is also mild pulmonary hypertension with an RVSP of 62.29 mmHg. Blood pressure 120 /74 heart rate 70 afebrile maintaining oxygen saturation on room air. Chest x- ray obtained this morning reveals improved aeration with no acute cardiopulmonary process noted no overt heart failure. Laboratory data reviewed , hemoglobin 7.3 up from 2.2 on admission, sodium 137, potassium 4.0, AST and ALT can continue to be elevated Objective - Vital Signs Vital signs: Vital Signs Temp 98.2 F 03/26/18 06:20 Pulse 70 03/26/18 06:20 Resp 18 03/26/18 06:20 BP 120/74 03/26/18 06:20 Pulse Ox 98 03/26/18 06:20 Intake & Output 03/25/18 03/26/18 03/26/18 18:59 06:59 18:59 Intake Total 450 Output Total 380 Balance 70 Intake: IV 200 Sodium Chloride 0.9% 1, 50 000 ml @ 100 mls/hr IV . Q10H STA Rx#:[id number] Sodium Chloride 0.9% 1, 150 000 ml @ 50 mls/hr IV . Q20H GIANLUCA Rx#:[id number] Oral 250 Output: Urine 380 Other: Voiding Method Indwelling Catheter Toilet # Voids 1 2 # Bowel Movements 0 - Exam GENERAL: Well-appearing, well-nourished and in no acute distress. NECK: Supple without JVD or thyromegaly. LUNGS: Breath sounds clear to auscultation bilaterally. Respiration equal and unlabored. No wheezes, rales or rhonchi. HEART: Regular rate and rhythm without murmurs, rubs or gallops. S1 and S2 heard. EXTREMITIES: Normal range of motion, no edema. No clubbing or cyanosis. Peripheral pulses intact. - Labs CBC & Chem 7: 03/26/18 07:38 03/26/18 07:38 Labs: Abnormal Lab Results - Last 24 Hours (Table) 03/24/18 03/25/18 03/25/18 Range/Units 10:25 04:22 22:35 RBC 3.04 L (3.80-5.40) m/uL Hgb 7.3 L (11.4-16.0) gm/dL Hct 23.5 L (34.0-46.0) % MCV 77.1 L (80.0-100.0) fL MCH 23.9 L (25.0-35.0) pg RDW 26.4 H (11.5-15.5) % Lymphocytes # (Manual) 0.87 L (1.0-4.8) k/uL Metamyelocytes # (Man) 0.09 H (0) k/uL Myelocytes # (Manual) (0) k/uL Nucleated RBCs 2 H (0-0) /100 WBC Haptoglobin 215.0 H (31.2-198.0) mg/dL Calcium (8.4-10.2) mg/dL Delta Bilirubin (0.0-0.2) mg/dL AST (14-36) U/L ALT (9-52) U/L Alkaline Phosphatase (38-126) U/L Total Protein (6.3-8.2) g/dL Albumin (3.5-5.0) g/dL Vitamin B12 2780.0 H (200.0-944.0) pg/mL 03/26/18 03/26/18 Range/Units 07:38 07:38 RBC 3.02 L (3.80-5.40) m/uL Hgb 7.3 L (11.4-16.0) gm/dL Hct 23.4 L (34.0-46.0) % MCV 77.5 L (80.0-100.0) fL MCH 24.0 L (25.0-35.0) pg RDW 26.6 H (11.5-15.5) % Lymphocytes # (Manual) 0.82 L (1.0-4.8) k/uL Metamyelocytes # (Man) (0) k/uL Myelocytes # (Manual) 0.06 H (0) k/uL Nucleated RBCs (0-0) /100 WBC Haptoglobin (31.2-198.0) mg/dL Calcium 7.9 L (8.4-10.2) mg/dL Delta Bilirubin 0.4 H (0.0-0.2) mg/dL AST 475 H (14-36) U/L ALT 981 H (9-52) U/L Alkaline Phosphatase 141 H (38-126) U/L Total Protein 5.1 L (6.3-8.2) g/dL Albumin 2.6 L (3.5-5.0) g/dL Vitamin B12 (200.0-944.0) pg/mL Assessment and Plan Assessment: ASSESSMENT Mild troponin elevation secondary to supply demand mismatch secondary to significant anemia Pulmonary hypertension PLAN Stable from a cardiac perspective. We will continue to see the patient as needed for the remainder of her admission. Please refer to call with further questions or concerns. Nurse Practitioner note has been reviewed, I agree with a documented findings and plan of care. Patient was seen and examined.
[2018-03-26] MEDS: IPRATROPIUM-ALBUTEROL 3 ML NEB INHALATION PRN (19:22)
--- NOTE | 2018-03-26 21:57 | CONS ---
CONSULTATION DATE OF SERVICE: March 26, 2018 REASON FOR CONSULTATION: Severe anemia. CHIEF COMPLAINT: Weakness. HISTORY OF PRESENT ILLNESS: Krystal is a very pleasant 47-year-old lady who presented to the hospital with progressive weakness and fatigue, and this has been going on for several months duration. However, over the last week or so it has gotten progressively worse and she felt extremely weak and dizzy. Her son was driving her to the emergency department and she passed out on her way to the emergency department. In the emergency department, she had CBC done and her hemoglobin was 2.2 g/dL, and her MCV was 55.9, total WBC had were 9.8, and platelet count were 488. She had additional blood work done including iron studies done which indicated severe iron deficiency anemia. The patient ended up being transfused packed red blood cells and admitted for further evaluation. As part of her evaluation in the emergency department as well, she had a CT scan done of her abdomen and pelvis. She was found to have a new cystic lesion in the left adnexa, which was felt to may represent either hemorrhagic cyst or possible neoplasm and this was confirmed also by transvaginal ultrasound. Of note, the patient had right oophorectomy in 2014 due to be benign etiology and also she had a remote history of hysterectomy in 2001. Also, her liver enzymes were significantly elevated and this was felt to be secondary to hypotension and on route to the emergency department. The patient now feels better and she is on the floor. She feels better and she remained to be feeling tired. She denies any melena, hematochezia, hematuria or hemoptysis. She denies any abdominal pain. She denies any recent weight loss. She has been complaining of some back pain and taking some Tylenol off and on but no excessive amount of Tylenol at all and she denies any alcohol abuse at all. She denies any alcohol use. There is no fever or chills. Her weight has remained stable. PAST MEDICAL HISTORY: She has a history of asthma. PAST SURGICAL HISTORY: As stated above she had right oophorectomy in the past and she had a hysterectomy in the past as well. SOCIAL HISTORY: No history of smoking, alcohol abuse or substance abuse. FAMILY HISTORY: For malignancy. The patient is adopted and not much known about her family history. ALLERGIES: SHE IS ALLERGIC TO CODEINE. HOME MEDICATION: Include Adderall 20 mg p.o. b.i.d., and albuterol inhaler. REVIEW OF SYSTEMS: As stated above in history of present illness, otherwise negative. PHYSICAL EXAMINATION: She is alert, oriented x3. She does not appear to be in acute distress at this time. Her vital signs are temperature 98.2, afebrile, pulse 70 and regular, respiration 18, blood pressure 120/74. HEENT: Normocephalic, atraumatic. Sclerae is pale and oral mucosa intact. NECK: Supple. No jugular venous distention. Chest equal expansion bilaterally. LUNGS: Clear to auscultation and percussion. Heart is regular rate and rhythm. ABDOMEN: Soft. No obvious organomegaly or masses. Bowel sounds present. Extremities revealed no edema. Skin no significant bruises, ecchymosis, petechiae. Lymphatics: No peripheral cervical supraclavicular nodes. Musculoskeletal moving all extremities appropriately. No percussion tenderness detected over spine or sternum. LABORATORY DATA: Recent laboratory data: WBC of 6.3, hemoglobin 7.3 after transfusion, it was 2.2 upon admission, her MCV is up to 7.5, platelet count of 239. Sodium 137, potassium 4.0, chloride 107, CO2 is 24, BUN is 8, creatinine 0.63. AST is 475, it was 1104, ALT is 91, it was 1449, alkaline phosphatase is 141, B12 2780, ferritin is 9.2, iron saturation 1.5. Serum iron is 7, total iron-binding capacity is 467, LDH a 7038. IMPRESSION: 1. Severe microcytic hypochromic anemia. This is likely going on for several months. Her iron studies are highly suggestive of severe iron deficiency. Her ferritin level is low despite her acute liver injury, since it is an acute phase reactant, this would be expected to be much higher in the setting of acute liver injury. 2. Her anemia is not related to used to genitourinary blood loss and gastrointestinal blood loss is highly suspected and needs to be ruled out. 3. Her elevated LDH level is related to liver injury and her slightly elevated bilirubin is related to post transfusion and there is no evidence to suggest any hemolytic anemia. 4. The cystic lesion in the left adnexa which could represent a hemorrhagic cyst versus neoplasm. Certainly this does not explain her severe iron deficiency anemia. RECOMMENDATION: 1. The patient already received blood transfusion. 2. I would highly recommend to proceed with gastrointestinal workup to further evaluate her severe iron deficiency anemia. 3. In regard to her left adnexal cystic lesion, I would recommend to repeat the transvaginal ultrasound in 2-4 weeks in the outpatient setting through Dr. De Souza. If this does not resolve, then this should be further evaluated and possibly by AGRICULTURE ENGINEER/oncologist regardless of CA-125 level. The above was discussed in details with the patient. I have answered all her questions to her satisfaction. Thank you very much for asking me to participate in the care of this nice lady. MMODL / IJN: [id number] /
[2018-03-27] MEDS: ACETAMINOPHEN TAB 325 MG TAB PO PRN ×2 (00:18→20:34)
[2018-03-27 08:36] LABS: ALT 670 U/L (9-52); AST 199 U/L (14-36); Albumin 2.4 g/dL (3.5-5.0); Alkaline Phosphatase 110 U/L (38-126); Anion Gap 3 mmol/L; Blood Urea Nitrogen 7 mg/dL (7-17); Calcium 7.9 mg/dL (8.4-10.2); Carbon Dioxide 26 mmol/L (22-30); Chloride 108 mmol/L (98-107); Glucose 82 mg/dL (74-99); Potassium 4.4 mmol/L (3.5-5.1); Sodium 137 mmol/L (137-145); Total Bilirubin 0.7 mg/dL (0.2-1.3); Total Protein 4.7 g/dL (6.3-8.2)
[2018-03-27 09:07] LABS: Anisocytosis Marked; Hypochromasia Marked; MCH 23.9 pg (25.0-35.0); MCHC 30.3 g/dL (31.0-37.0); MCV 78.8 fL (80.0-100.0); Mean Platelet Volume 9.2; Microcytosis Marked; Platelet Count 283 k/uL (150-450); Poikilocytosis Marked; RBC 2.92 m/uL (3.80-5.40); WBC 5.7 k/uL (3.8-10.6)
[2018-03-27 09:13] LABS: RDW 27.2 % (11.5-15.5)
[2018-03-27] MEDS: SODIUM CHLORIDE 0.9% 1,000 ML IV SCH (09:16)
[2018-03-27] MEDS: PANTOPRAZOLE 40 MG/10 ML VIAL IVP SCH ×2 (09:16→20:27)
[2018-03-27] MEDS: SENNOSIDES-DOCUSATE SODIUM 1 EACH TAB PO SCH ×2 (09:16→20:26)
[2018-03-27] MEDS: FOLIC ACID 1 MG TAB PO SCH (09:16)
[2018-03-27] MEDS: FERROUS SULFATE 325 MG TAB PO SCH ×3 (09:16→15:58)
[2018-03-27] MEDS: MULTIVITAMINS, THERA 1 EACH TAB PO SCH (09:16)
[2018-03-27 10:47] LABS: Monocytes # (M) 0.46 k/uL (0-1.0); Neutrophils # (M) 3.65 k/uL (1.3-7.7); Neutrophils % (M) 64 %; Nucleated Red Blood Cells 0 /100 WBC (0-0); Total Cells Counted 100
[2018-03-27 10:48] LABS: Polychromasia Present
--- NOTE | 2018-03-27 11:16 | CDI ---
Last Revision, July 2017 Documentation Clarification Form Date: 03/27/18 From: Juliana Soliman RN Admit Date: 03/24/2018 3:18:00 PM Patient Name: Krystal Zuluaga Visit Number: [id number] ATTENTION: The Clinical Documentation Specialists (CDI) and [facility] Coding Staff appreciate your assistance in clarifying documentation. Please respond to the clarification below the line at the bottom and electronically sign. The CDI & [facility] Coding staff will review the response and follow-up if needed. Please note: Queries are made part of the Legal Health Record. If you have any questions, please contact the author of this message via ITS. Dr. Baljinder Danielle MD, Conflicting documentation has been found in the medical record. Pt. presented with low HGB of 2.2. ON 03/25 you have documented that the patient had a NSTEMI. ON 03/26 cardiology states "mild troponin elevation secondary to supply demand mismatch secondary to significant anemia". No mention of NSTEMI. History/Risk Factors: chronic bronchial asthma, right hemorrhagic ovarian mass Clinical Indicators: on admission TROP 0.083 - 0.168 ECHO: EF 55-60%, moderate pulmonary HTN Treatment: 4 units RBC's transfused Cardiologies consult 03/25: "patient denies any chest pain or shortness of breath. At the time of my Examination patient seemed to be comfortable. Most probably the troponin elevation is secondary to demand supply mismatch. Her EKG showed sinus rhythm without acute changes". In your opinion what is the most clinically appropriate diagnosis for this patient? NSTEMI ruled in NSTEMI ruled out Other explanation of clinical findings Unable to determine (no explanation for clinical findings) Please continue to document in your progress notes , under the line below and/ or in the discharge summary in order to capture severity of illness and risk of mortality. Include clinical findings that support your diagnosis. Type 2 NSTEMI=supply demand mismatch due to severe anemia, technically both terms refer to same issue(first one being new terminology) Now, pt did not have classical NSTEMI that would require wide known evidence based treatment like antiplateleys etc. Matter the fact such treatment would be harmful in this case. Type 2 NSTEMI is treated in this case by correcting anemia, no other intervention needed. JADAD
[2018-03-27] MEDS: SODIUM FERRIC GLUCONAT-SUCROSE 125 MG in SODIUM CHLORIDE 0.9% 100 ML IVPB SCH (11:35)
[2018-03-27] MEDS ORDERED: SIMETHICONE 80 MG CHEWABLE PO PRN (13:22)
--- NOTE | 2018-03-27 14:35 | P.PN ---
Subjective Progress Note Date: 03/27/18 Principal diagnosis: microcytic, hypochromic anemia Pt seen in follow up today, she denies any bleeding, never noticed any bleeding prior to admit, black or bloody stool, nausea or vomiting, this is of sudden onset as109/24 CBC and RBC indices were normal. Pt states feeling better then on admit but still pretty weak and fatigued. GI evaluation pending. She denies vaginal bleeding, she is on f/u with Information Technology Data Analyst for ovarian cyst on her only ovary. Objective - Vital Signs Vital signs: Vital Signs Temp 97.2 F L 03/27/18 07:00 Pulse 80 03/27/18 07:00 Resp 18 03/27/18 07:00 BP 132/73 03/27/18 07:00 Pulse Ox 97 03/27/18 07:00 Intake & Output 03/26/18 03/27/18 03/27/18 18:59 06:59 18:59 Other: Voiding Method Toilet # Voids 3 2 # Bowel Movements 1 - Constitutional General appearance: Present: average body habitus, cooperative, no acute distress - EENT Eyes: Present: anicteric sclerae ENT: Present: normal oropharynx - Respiratory Respiratory: bilateral: CTA - Cardiovascular Heart sounds: normal: S1, S2 Abnormal Heart Sounds: Absent: systolic murmur, diastolic murmur, rub, S3 Gallop , S4 Gallop, click, other - Peripheral edema leg Peripheral Edema: bilateral: None - Gastrointestinal General gastrointestinal: Present: normal bowel sounds, soft - Integumentary Integumentary: Present: pale - Neurologic Neurologic: Present: CNII-XII intact - Musculoskeletal Musculoskeletal: Present: strength equal bilaterally - Psychiatric Psychiatric: Present: A&O x's 3, appropriate affect, intact judgment & insight - Labs CBC & Chem 7: 03/27/18 07:23 03/27/18 07:23 Labs: Abnormal Lab Results - Last 24 Hours (Table) 03/27/18 03/27/18 Range/Units 07:23 07:23 RBC 2.92 L (3.80-5.40) m/uL Hgb 7.0 L* (11.4-16.0) gm/dL Hct 23.0 L (34.0-46.0) % MCV 78.8 L (80.0-100.0) fL MCH 23.9 L (25.0-35.0) pg MCHC 30.3 L (31.0-37.0) g/dL RDW 27.2 H (11.5-15.5) % Chloride 108 H (98-107) mmol/L Calcium 7.9 L (8.4-10.2) mg/dL AST 199 H (14-36) U/L ALT 670 H (9-52) U/L Total Protein 4.7 L (6.3-8.2) g/dL Albumin 2.4 L (3.5-5.0) g/dL Assessment and Plan (1) Microcytic hypochromic anemia Narrative/Plan: Lab confirmed iron deficiency. Parenteral iron ordered. Pt has been given oral iron but doubt the dose will be adequate to replenish iron stores. GI work up is pending. Will cont to follow up inpatient, plans for outpatient follow up. Current Visit: Yes Status: Acute Priority: High Code(s): D50.9 - IRON DEFICIENCY ANEMIA, UNSPECIFIED SNOMED Code(s): 01338568
[2018-03-27] MEDS ORDERED: BISACODYL 5 MG TABLET.DR PO STA (14:46)
--- NOTE | 2018-03-27 15:48 | P.CONS ---
History of Present Illness - Reason for Consult Consult date: 03/27/18 Iron deficiency anemia may need EGD colon Requesting physician: Edwin Wade - Chief Complaint Lightheaded, shortness of breath, syncope - History of Present Illness The patient is a pleasant 47-year-old female with an essentially unremarkable past medical history who presented to the hospital with complaints of shortness of breath, lightheadedness and several episodes of fainting. The patient reports that the symptoms have been occurring over the past week and had been progressive. She reports feeling weak and fatigued with shortness of breath worsened by exertion. The patient also had several episodes of syncope. She denies any symptoms of fever or weight loss but does report that she has had episodes of night sweats which she associated with menopause. The patient also had multiple episodes of vomiting prior to presentation. However she notes that these episodes were nonbloody, and nonbilious in nature. They consisted mainly of regurgitation of food she did try to eat as well as retching without any production of vomitus. The patient reports daily normal bowel movements with no hematochezia or melena. She denies any recent NSAID use reporting that her last use of Motrin was approximately 7 months ago. She initially thought that her symptoms were due to over exertion, and working in her garden. She reports that during her pregnancies she did require iron supplementation, but other than this instance has not been iron deficient. On presentation she was found to be severely anemic with a hemoglobin of 2.2 and was subsequently transfused 4 units of packed red blood cells with her hemoglobin remained stable at 7.0 today. She has no prior history of EGD or colonoscopy. Of note she was also found to have elevation in her liver function tests during her hospitalization which have subsequently normalized. It is felt that these elevations were due to perfusion. Currently she is lying in bed comfortable with no complaints. Review of Systems REVIEW OF SYSTEMS: CARDIOPULMONARY: No chest pain or shortness of breath at present time, the patient did note shortness of breath worsened by exertion prior to presentation. GENITOURINARY: No dysuria or hematuria. MUSCULOSKELETAL: Unremarkable. SKIN: Unremarkable. ENDOCRINE: Unremarkable. PSYCHIATRIC: Unremarkable. NEUROLOGY: Unremarkable. ENT: Vision unremarkable. GASTRO: No abdominal pain, hematochezia, melena, hematemesis or coffee-ground emesis. She does report vomiting prior to presentation which was nonbilious in nature. CONSTITUTIONAL: No recent weight loss. No fever, chills, but she does report night sweats. Past Medical History Past Medical History: Asthma Additional Past Medical History / Comment(s): falls, still has lt ovary. pne vaccine-not sure of date History of Any Multi-Drug Resistant Organisms: None Reported Past Surgical History: Hysterectomy, Tubal Ligation Additional Past Surgical History / Comment(s): rt fallopian tube and ovary removed, uterus removed still has lt ovary but did have cyst removed off that one Past Anesthesia/Blood Transfusion Reactions: No Reported Reaction Past Psychological History: No Psychological Hx Reported Smoking Status: Never smoker Past Alcohol Use History: Occasional Past Drug Use History: None Reported - Past Family History Mother Family Medical History: Unable to Obtain Additional Family Medical History / Comment(s): pt was adopted Medications and Allergies Home Medications Medication Instructions Recorded Confirmed Type Dextroamphetamine/Amphetamine 20 mg PO BID 06/27/15 03/24/18 History [Adderall] Albuterol Inhaler [Ventolin Hfa 2 puff INHALATION RT-Q6H PRN 07/18/15 03/24/18 History Inhaler] Allergies Allergy/AdvReac Type Severity Reaction Status Date / Time codeine Allergy Nausea & Verified 03/24/18 12:07 Vomiting Physical Exam Vitals: Vital Signs Temp Pulse Pulse Resp BP BP Pulse Ox 03/27/18 07:00 97.2 F L 80 18 132/73 97 03/26/18 23:00 99.3 F 89 18 146/77 98 03/26/18 19:34 78 03/26/18 19:24 76 Intake and Output 03/27/18 03/27/18 03/27/18 06:59 14:59 22:59 Other: Voiding Method Toilet # Voids 2 On physical examination, patient appears comfortable in no apparent distress. Vital signs are stable. HEENT: Unremarkable. Conjunctivae pink. Sclerae anicteric. Oral cavity no lesions. NECK: No JVD or lymph node enlargement. CHEST: Clear to auscultation. HEART: Regular rate and rhythm. ABDOMEN: Soft. Bowel sounds are positive. No organomegaly. EXTREMITIES: No pedal edema. SKIN: No rashes. NEUROLOGIC: Alert and oriented x3. No focal deficits. Results CBC & Chem 7: 03/27/18 07:23 08/20/18 07:23 Labs: Abnormal Lab Results - Last 24 Hours (Table) 03/27/18 03/27/18 Range/Units 07:23 07:23 RBC 2.92 L (3.80-5.40) m/uL Hgb 7.0 L* (11.4-16.0) gm/dL Hct 23.0 L (34.0-46.0) % MCV 78.8 L (80.0-100.0) fL MCH 23.9 L (25.0-35.0) pg MCHC 30.3 L (31.0-37.0) g/dL RDW 27.2 H (11.5-15.5) % Chloride 108 H (98-107) mmol/L Calcium 7.9 L (8.4-10.2) mg/dL AST 199 H (14-36) U/L ALT 670 H (9-52) U/L Total Protein 4.7 L (6.3-8.2) g/dL Albumin 2.4 L (3.5-5.0) g/dL Assessment and Plan (1) Microcytic hypochromic anemia Narrative/Plan: Iron deficiency anemia of unknown etiology, likely represents an insidious process given the patient's markedly low hemoglobin on presentation. Patient has no signs or symptoms of gastrointestinal bleeding, however iron deficiency would suggest the bleeding from a GI source is a distinct possibility. Differential also includes malignancy, hematologic process or other etiology. Hemoglobin appropriately responded to transfusion and is currently stable at 7. Current Visit: Yes Status: Acute Priority: High Code(s): D50.9 - IRON DEFICIENCY ANEMIA, UNSPECIFIED SNOMED Code(s): 43270912 (2) Transaminitis Narrative/Plan: Patient presenting with a predominantly hepatocellular elevation in liver enzymes on presentation with a marked increase in her AST and ALTs which have subsequently come down to near normal levels. Viral hepatitis and acetaminophen levels were both negative. His likely that the patient's elevation in liver enzymes was secondary to hypoperfusion given her severe anemia and dehydration on presentation. Current Visit: Yes Status: Acute Priority: Medium Code(s): R74.0 - NONSPEC ELEV OF LEVELS OF TRANSAMNS & LACTIC ACID DEHYDRGNSE SNOMED Code(s): 995811031 (3) Syncope Narrative/Plan: Secondary to above. Current Visit: Yes Status: Resolved Priority: Medium Code(s): R55 - SYNCOPE AND COLLAPSE SNOMED Code(s): 301564786 Plan: Supportive care Monitor hemoglobin and hematocrit Follow liver enzymes, no further workup if they continue to trend down, however if the increase will order full serology Clear liquid diet today with nothing by mouth after midnight Plan on EGD and colonoscopy for evaluation of occult GI bleed -Thank you for allowing us to participate in the care of this patient we will continue to follow.
[2018-03-27] MEDS ORDERED: PEG 3350-NA SULF,BICARB,CL/KCL 4,000 ML BOTTLE PO ONE (17:00)
--- NOTE | 2018-03-27 18:34 | P.PN ---
Subjective Progress Note Date: 03/27/18 Principal diagnosis: presyncope Patient is a 47-year-old female with a past medical history of asthma who presented to the emergency department with complaints of multiple syncopal episodes. In the ER she underwent an extensive evaluation. She was found to have a hemoglobin of 2.2. She was ordered packed red blood cells. She underwent a CT of the abdomen and pelvis which showed a right ovarian cyst. She was noted to have an elevated lactic acid of 8.2, severely elevated liver enzymes in the 2000, and elevated troponin. She is admitted for further monitoring and care. She was seen by cardiology. She underwent an echocardiogram that showed a dilated left atrium with preserved ejection fraction was otherwise normal. Due to her left ovarian abnormality she was seen by CIRCULATION CREW LEADER. She underwent a vaginal ultrasound which showed a solid appearing mass in the left adnexa representing a solid lesion or hemorrhagic cyst along with free fluid in the cul-de-sac. Dr. Walton ordered and ova/ to evaluate for malignancy and suggested repeat follow-up in the ultrasound in the office. She was seen by cardiology and her elevated troponin was felt to be secondary to demand ischemia from her severely low hemoglobin. She underwent a liver ultrasound which showed no acute process. Her hepatitis panel was negative. She was seen by oncology who suggested a GI evaluation and IV iron therapy. GI plans for EGD and colonoscopy in a.m. Patient seen and examined at bedside. She is feeling much better today. Her dizziness has almost completely resolved. She still feeling slightly weak. She is having some shortness of breath since receiving her blood products and IV iron. She denies any nausea, vomiting, or diarrhea. She understands the need for EGD and colonoscopy. She is anxious to see results. Objective - Vital Signs Vital signs: Vital Signs Temp 98.7 F 03/27/18 15:00 Pulse 77 03/27/18 15:00 Resp 20 03/27/18 15:00 BP 140/78 03/27/18 15:00 Pulse Ox 97 03/27/18 15:00 Intake & Output 03/26/18 03/27/18 03/27/18 18:59 06:59 18:59 Other: Voiding Method Toilet # Voids 3 2 2 # Bowel Movements 1 - Exam General: non toxic, no distress, appears at stated age Derm: + Pallor warm, dry Head: atraumatic, normocephalic, symmetric Eyes: EOMI, no lid lag, anicteric sclera Mouth: no lip lesion, mucus membranes moist Cardiovascular: S1S2 reg, no murmur, positive posterior tibial pulse bilateral, Lungs: Bilateral bases, no rhonchi, no rales , no accessory muscle use Abdominal: soft, nontender to palpation, no guarding, no appreciable organomegaly Ext: no gross muscle atrophy, 1+ pitting edema bilateral lower extremities, no contractures Neuro: CN II-XI grossly intact, no focal neuro deficits Psych: Alert, oriented, appropriate affect - Labs CBC & Chem 7: 03/27/18 07:23 0818 07:23 Labs: Abnormal Lab Results - Last 24 Hours (Table) 03/27/18 03/27/18 Range/Units 07:23 07:23 RBC 2.92 L (3.80-5.40) m/uL Hgb 7.0 L* (11.4-16.0) gm/dL Hct 23.0 L (34.0-46.0) % MCV 78.8 L (80.0-100.0) fL MCH 23.9 L (25.0-35.0) pg MCHC 30.3 L (31.0-37.0) g/dL RDW 27.2 H (11.5-15.5) % Chloride 108 H (98-107) mmol/L Calcium 7.9 L (8.4-10.2) mg/dL AST 199 H (14-36) U/L ALT 670 H (9-52) U/L Total Protein 4.7 L (6.3-8.2) g/dL Albumin 2.4 L (3.5-5.0) g/dL Assessment and Plan Assessment: Symptomatic iron deficiency anemia -Oncology recommendations appreciated: Continue with IV therapy -Follow CBC -EGD and colonoscopy in a.m. as low hemoglobin on presentation suggests insidious onset Hemorrhagic ovarian cyst -Outpatient follow-up with Dr. Walton, no immediate surgical intervention needed Syncopal event secondary to above -No further workup necessary Transaminitis secondary to hepatic ischemia -Follow liver enzymes -Liver ultrasound and hepatitis profile negative DVT prophylaxis: SCDs, early ambulation Discussed with: pt, nursing Anticipated discharge: 24-[address]: home A total of 35 minutes was spent on the care of this complex patient more than 50 % of the time was spent in counseling and care coordination.
[2018-03-28] MEDS: SODIUM CHLORIDE 0.9% 1,000 ML IV SCH (06:22)
[2018-03-28] MEDS: FERROUS SULFATE 325 MG TAB PO SCH ×3 (08:20→17:19)
[2018-03-28] MEDS: SENNOSIDES-DOCUSATE SODIUM 1 EACH TAB PO SCH ×2 (08:21→22:14)
[2018-03-28] MEDS: PANTOPRAZOLE 40 MG/10 ML VIAL IVP SCH (08:24)
[2018-03-28 08:55] LABS: ALT 516 U/L (9-52); AST 101 U/L (14-36); Albumin 2.5 g/dL (3.5-5.0); Alkaline Phosphatase 98 U/L (38-126); Anion Gap 4 mmol/L; Blood Urea Nitrogen 3 mg/dL (7-17); Calcium 8.2 mg/dL (8.4-10.2); Carbon Dioxide 28 mmol/L (22-30); Chloride 106 mmol/L (98-107); Glucose 77 mg/dL (74-99); Potassium 3.9 mmol/L (3.5-5.1); Sodium 138 mmol/L (137-145); Total Bilirubin 0.7 mg/dL (0.2-1.3); Total Protein 4.8 g/dL (6.3-8.2)
[2018-03-28] MEDS: SODIUM FERRIC GLUCONAT-SUCROSE 125 MG in SODIUM CHLORIDE 0.9% 100 ML IVPB SCH (08:57)
[2018-03-28 09:04] LABS: Anisocytosis Marked; HCT 26.6 % (34.0-46.0); HGB 7.8 gm/dL (11.4-16.0); Hypochromasia Marked; MCH 23.5 pg (25.0-35.0); MCHC 29.1 g/dL (31.0-37.0); MCV 80.7 fL (80.0-100.0); Mean Platelet Volume 9.3; Microcytosis Marked; Platelet Count 340 k/uL (150-450); Poikilocytosis Marked
[2018-03-28 10:27] LABS: Eosinophils # (M) 0.12 k/uL (0-0.7); Monocytes # (M) 0.28 k/uL (0-1.0); Neutrophils % (M) 70 %; Nucleated Red Blood Cells 0 /100 WBC (0-0); Total Cells Counted 100
[2018-03-28 10:28] LABS: Mixed Population RBC Present; Polychromasia Present
[2018-03-28] MEDS: FOLIC ACID 1 MG TAB PO SCH (11:20)
[2018-03-28] MEDS: MULTIVITAMINS, THERA 1 EACH TAB PO SCH (11:20)
[2018-03-28 11:40] VITALS: BMI 30.5
--- NOTE | 2018-03-28 12:55 | P.PN ---
Subjective Progress Note Date: 03/28/18 Principal diagnosis: Iron deficiency anemia Doing well, no complaints. No overnight issues. Currently drinking GoLYTELY. Objective - Vital Signs Vital signs: Vital Signs Temp 98.5 F 03/28/18 06:35 Pulse 84 03/28/18 06:35 Resp 18 03/28/18 06:35 BP 120/57 03/28/18 06:35 Pulse Ox 96 03/28/18 06:35 Intake & Output 03/27/18 03/28/18 03/28/18 18:59 06:59 18:59 Intake Total 200 Balance 200 Weight 85.9 kg Intake: Oral 200 Other: Voiding Method Toilet Toilet # Voids 2 2 - Exam Constitutional: No acute distress, conversant, pleasant Eyes:Anicteric sclerae, moist conjunctiva, no lid-lag, PERRLA, ENMT: Oropharynx clear, no erythema, exudates Neck: Supple, FROM, no masses, or JVD, No carotid bruits, No thyromegaly Lungs: Clear to auscultation, Clear to percussion, Normal respiratory effort, no accessory muscle use Cardiovascular: Heart regular in rate and rhythm, No murmurs, gallops, or rubs, No peripheral edema Abdominal: Soft, Nontender, no guarding, rebound or rigidity, Normoactive bowel sounds, No hepatomegaly, No splenomegaly, No palpable mass Skin: Normal temperature, tone, texture, turgor, no induration, No subcutaneous nodules, No rash, lesions, No ulcers Extremities: No digital cyanosis, No clubbing, Pedal pulses intact and symmetrical, Radial pulses intact and symmetrical, No calf tenderness Psychiatric: Alert and oriented to person, place and time, appropriate affect, intact judgement Neuro: Muscles Strength 5/5 in all 4 extremities, Sensation to light touch grossly present throughout, Cranial nerves II-XII grossly intact, no focal sensory deficits - Labs CBC & Chem 7: 03/28/18 08:06 03/28/18 08:06 Labs: Abnormal Lab Results - Last 24 Hours (Table) 03/28/18 03/28/18 Range/Units 08:06 08:06 RBC 3.30 L (3.80-5.40) m/uL Hgb 7.8 L (11.4-16.0) gm/dL Hct 26.6 L (34.0-46.0) % MCH 23.5 L (25.0-35.0) pg MCHC 29.1 L (31.0-37.0) g/dL RDW 28.0 H (11.5-15.5) % Lymphocytes # (Manual) 0.80 L (1.0-4.8) k/uL BUN 3 L (7-17) mg/dL Calcium 8.2 L (8.4-10.2) mg/dL AST 101 H (14-36) U/L ALT 516 H (9-52) U/L Total Protein 4.8 L (6.3-8.2) g/dL Albumin 2.5 L (3.5-5.0) g/dL Assessment and Plan Plan: Symptomatic iron deficiency anemia -Oncology recommendations appreciated: -Continue with IV iron therapy -Follow CBC -EGD and colonoscopy as soon as the prep is done. Hemorrhagic ovarian cyst -Outpatient follow-up with Dr. Stiles, no immediate surgical intervention needed Syncopal event secondary to above -No further workup necessary Transaminitis secondary to hepatic ischemia -Follow liver enzymes -Liver ultrasound and hepatitis profile negative DVT prophylaxis: SCDs, early ambulation Discussed with: pt, nursing Anticipated discharge: 24-[address]: home A total of 35 minutes was spent on the care of this complex patient more than 50 % of the time was spent in counseling and care coordination.
--- NOTE | 2018-03-28 13:27 | P.PN ---
Subjective Progress Note Date: 03/28/18 Principal diagnosis: microcytic, hypochromic anemia Pt seen in f/u, awaiting endoscopy. She denies bleeding, she is very hungry, fully ambulatory, no pain. Objective - Vital Signs Vital signs: Vital Signs Temp 98.5 F 03/28/18 06:35 Pulse 84 03/28/18 06:35 Resp 18 03/28/18 06:35 BP 120/57 03/28/18 06:35 Pulse Ox 96 03/28/18 06:35 Intake & Output 03/27/18 03/28/18 03/28/18 18:59 06:59 18:59 Intake Total 200 Balance 200 Weight 85.9 kg Intake: Oral 200 Other: Voiding Method Toilet Toilet # Voids 2 2 - Exam WDWN, NAD, A7O x 4, respirations even and unlabored, mobile independently - Labs CBC & Chem 7: 03/28/18 08:06 03/28/18 08:06 Labs: Abnormal Lab Results - Last 24 Hours (Table) 03/28/18 03/28/18 Range/Units 08:06 08:06 RBC 3.30 L (3.80-5.40) m/uL Hgb 7.8 L (11.4-16.0) gm/dL Hct 26.6 L (34.0-46.0) % MCH 23.5 L (25.0-35.0) pg MCHC 29.1 L (31.0-37.0) g/dL RDW 28.0 H (11.5-15.5) % Lymphocytes # (Manual) 0.80 L (1.0-4.8) k/uL BUN 3 L (7-17) mg/dL Calcium 8.2 L (8.4-10.2) mg/dL AST 101 H (14-36) U/L ALT 516 H (9-52) U/L Total Protein 4.8 L (6.3-8.2) g/dL Albumin 2.5 L (3.5-5.0) g/dL Assessment and Plan (1) Microcytic hypochromic anemia Narrative/Plan: S/P 4 units of blood, 2nd dose of parenteral iron. Hgb stable today. Cont parenteral iron x 3 doses. Pending endoscopy. Current Visit: Yes Status: Acute Priority: High Code(s): D50.9 - IRON DEFICIENCY ANEMIA, UNSPECIFIED SNOMED Code(s): 60604426
[2018-03-28] MEDS ORDERED: IV FLUID CONTINUATION 500 ML IV ONE (14:20)
[2018-03-28 14:35] LABS: Hepatitis BE Antibody NEG (Negative); Hepatitis BE Antigen NEG (Negative)
--- NOTE | 2018-03-28 15:39 | P.PCN ---
Date of Procedure: 03/28/18 Description of Procedure: Brief history: Patient is a pleasant scheduled for an inpatient upper endoscopy as well as colonoscopy as a part of evaluation of severe iron deficiency anemia. Procedure performed: Esophagogastroduodenoscopy Colonoscopy Preoperative diagnosis: Iron deficiency anemia, no prior endoscopic evaluation Anesthesia: [facility] [place] Procedure: After informed consent was obtained from the patient was brought into the endoscopy unit and IV sedation was administered by anesthesia under continuous monitoring. Initially upper endoscopy was done. The Olympus GF 180 video endoscope was inserted inserted into the mouth and esophagus intubated without any difficulty and was gradually advanced into the stomach and duodenum and carefully examined. The bulb and second part of the duodenum appeared normal with biopsies taken to rule out celiac sprue. The scope was then withdrawn into the stomach adequately insufflated with air and upon careful examination the antrum and body, cardia and fundus appeared grossly normal. The patient did have evidence of mild inflammation in the stomach suggestive of gastritis which was biopsied. The scope was then withdrawn into the esophagus. The GE junction was located at 35 cm to the incisors, and a large 7 cm hiatal hernia was noted. Multiple superficial small ulcerations suggestive of Michael's erosions were found in the hiatal hernia. The GE junction appeared regular with no erythema erosions or ulcerations. Rest of the esophagus appeared normal. Patient tolerated the procedure well. At this time the patient continued to remain sedation. Initial digital rectal examination was normal. Olympus CF 180 video colonoscope was then inserted into the rectum and gradually advanced to the cecum without any difficulty. Careful examination was performed as the scope was gradually being withdrawn. The prep was good. The cecum, ascending colon, transverse colon, descending colon, sigmoid colon and rectum appeared normal. A few scattered diverticula were found in the sigmoid and descending colon. Internal hemorrhoids were found on retroflexion in the rectum with no lesions noted. Patient tolerated the procedure well. Impression: 1. Hiatal hernia with superficial mild ulceration suggestive of Michael's erosions likely the source of the patient's anemia. 2. Gastritis, biopsied. Normal duodenum biopsy to rule out celiac sprue. 3. Diverticulosis. 4. Internal hemorrhoids Recommendations: Findings of this examination were discussed with the patient. At this time would recommend continuing PPI daily, either omeprazole 20 mg daily or pantoprazole 40 mg daily. Continue iron supplementation and monitoring of hemoglobin. Repeat screening colonoscopy in 10 years or sooner if signs or symptoms of GI bleed recur. If patient has further fall in her hemoglobin in the acute setting would recommend capsule endoscopy. Otherwise patient is okay to resume diet.
[2018-03-28] MEDS: ACETAMINOPHEN TAB 325 MG TAB PO PRN (22:18)
[2018-03-29] MEDS: SODIUM CHLORIDE 0.9% 1,000 ML IV SCH (03:16)
[2018-03-29 07:24] VITALS: BP 109/50; PULSE 79; RESP 16; TEMP 98
[2018-03-29] MEDS ORDERED: PANTOPRAZOLE 40 MG TABLET PO SCH (07:30)
--- NOTE | 2018-03-29 08:40 | P.PN ---
<Keila Vargas - Last Filed: 03/29/18 08:36> Subjective Progress Note Date: 03/29/18 Principal diagnosis: Iron deficiency anemia Status post EGD colonoscopy hiatal hernia superficial mild ulceration suggestive of Michael erosions, gastritis, diverticulosis and internal hemorrhoids. No bleeding. Feels well. Afebrile. Hemoglobin 7.8 yesterday. Transaminases improving. Objective - Vital Signs Vital signs: Vital Signs Temp 98.0 F 03/29/18 06:58 Pulse 79 03/29/18 06:58 Resp 16 03/29/18 06:58 BP 109/50 03/29/18 06:58 Pulse Ox 96 03/29/18 06:58 Intake & Output 03/28/18 03/29/18 03/29/18 18:59 06:59 18:59 Intake Total 450 775 Balance 450 775 Weight 85.9 kg Intake: IV 450 400 Sodium Chloride 0.9% 1, 400 000 ml @ 50 mls/hr IV . Q20H GIANLUCA Rx#:[id number] Oral 375 Other: # Voids 2 1 - Exam General appearance: The patient is alert, oriented, in no acute distress. HET: Head is normocephalic and atraumatic. Pupils are equal and reactive. Oropharynx is clear without lesions. Neck: Supple without lymphadenopathy. Trachea midline. Heart: S1 S2. Regular rate and rhythm. Lungs: No crackles or wheezes are heard. Abdomen: Soft, nontender, nondistended with bowel sounds. No peritoneal signs. No palpable organomegaly or masses. Extremities: Normal skin color and turgor. No cyanosis, rash, ulceration, clubbing, or edema. Radial and pedal pulses are 2/4 bilaterally. Neurological: No focal deficits. Strength and sensation are grossly intact. - Labs CBC & Chem 7: 03/28/18 08:06 03/28/18 08:06 Labs: Abnormal Lab Results - Last 24 Hours (Table) 03/28/18 03/28/18 Range/Units 08:06 08:06 RBC 3.30 L (3.80-5.40) m/uL Hgb 7.8 L (11.4-16.0) gm/dL Hct 26.6 L (34.0-46.0) % MCH 23.5 L (25.0-35.0) pg MCHC 29.1 L (31.0-37.0) g/dL RDW 28.0 H (11.5-15.5) % Lymphocytes # (Manual) 0.80 L (1.0-4.8) k/uL BUN 3 L (7-17) mg/dL Calcium 8.2 L (8.4-10.2) mg/dL AST 101 H (14-36) U/L ALT 516 H (9-52) U/L Total Protein 4.8 L (6.3-8.2) g/dL Albumin 2.5 L (3.5-5.0) g/dL Assessment and Plan (1) Iron deficiency anemia Status: Acute Code(s): D50.9 - IRON DEFICIENCY ANEMIA, UNSPECIFIED SNOMED Code(s): 74528271 (2) Colon, diverticulosis Status: Acute Code(s): K57.30 - DVRTCLOS OF LG INT W/O PERFORATION OR ABSCESS W/O BLEEDING SNOMED Code(s): 255344116 (3) Michael lesion, acute Status: Acute Code(s): K25.3 - ACUTE GASTRIC ULCER WITHOUT HEMORRHAGE OR PERFORATION SNOMED Code(s): 65463252 (4) Internal hemorrhoids without complication Status: Acute Code(s): K64.8 - OTHER HEMORRHOIDS SNOMED Code(s): 12278339 (5) Transaminitis Narrative/Plan: Improved Status: Acute Priority: Medium Code(s): R74.0 - NONSPEC ELEV OF LEVELS OF TRANSAMNS & LACTIC ACID DEHYDRGNSE SNOMED Code(s): 210428063 Plan: 1. Omeprazole 20 mg daily. Iron supplementation. If patient has further fall in her hemoglobin would recommend capsule endoscopy. Return to office in 2-3 weeks for reevaluation. Diet as tolerated. Discharge per medicine. Follow-up with medicine and hematology is advised. Assessment and plan a care discussed with Dr. Arias <Saeid Arias - Last Filed: 03/31/18 10:25> Objective - Vital Signs Vital signs: Vital Signs Temp 98.0 F 03/29/18 06:58 Pulse 79 03/29/18 06:58 Resp 16 03/29/18 06:58 BP 109/50 03/29/18 06:58 Pulse Ox 96 03/29/18 06:58 - Labs CBC & Chem 7: 03/29/18 08:01 03/29/18 08:01 Assessment and Plan (1) Microcytic hypochromic anemia Status: Acute Priority: High Code(s): D50.9 - IRON DEFICIENCY ANEMIA, UNSPECIFIED SNOMED Code(s): 30791532 (2) Transaminitis Status: Acute Priority: Medium Code(s): R74.0 - NONSPEC ELEV OF LEVELS OF TRANSAMNS & LACTIC ACID DEHYDRGNSE SNOMED Code(s): 511246757 (3) Syncope Status: Resolved Priority: Medium Code(s): R55 - SYNCOPE AND COLLAPSE SNOMED Code(s): 189075817 Plan: The patient has been seen and evaluated, and the plan of care discussed. I agree with the above recommendations and assessment and plan.
[2018-03-29] MEDS: SODIUM FERRIC GLUCONAT-SUCROSE 125 MG in SODIUM CHLORIDE 0.9% 100 ML IVPB SCH (08:44)
[2018-03-29] MEDS: MULTIVITAMINS, THERA 1 EACH TAB PO SCH (08:45)
[2018-03-29] MEDS: FOLIC ACID 1 MG TAB PO SCH (08:45)
[2018-03-29 08:46] LABS: ALT 374 U/L (9-52); AST 53 U/L (14-36); Albumin 2.5 g/dL (3.5-5.0); Alkaline Phosphatase 96 U/L (38-126); Anion Gap 4 mmol/L; Blood Urea Nitrogen 7 mg/dL (7-17); Calcium 8.4 mg/dL (8.4-10.2); Carbon Dioxide 26 mmol/L (22-30); Chloride 107 mmol/L (98-107); Glucose 81 mg/dL (74-99); Magnesium 1.8 mg/dL (1.6-2.3); Phosphorus 4.1 mg/dL (2.5-4.5); Potassium 4.4 mmol/L (3.5-5.1); Sodium 137 mmol/L (137-145); Total Bilirubin 0.6 mg/dL (0.2-1.3); Total Protein 4.8 g/dL (6.3-8.2)
[2018-03-29] MEDS: SENNOSIDES-DOCUSATE SODIUM 1 EACH TAB PO SCH (08:46)
[2018-03-29] MEDS: FERROUS SULFATE 325 MG TAB PO SCH ×2 (08:47→12:09)
[2018-03-29 08:54] LABS: Anisocytosis Marked; Basophils % (A) 0 %; Eosinophils # (A) 0.2 k/uL (0-0.7); Eosinophils % (A) 2 %; HCT 27.4 % (34.0-46.0); HGB 7.7 gm/dL (11.4-16.0); Hypochromasia Marked; Lymphocytes # (A) 1.3 k/uL (1.0-4.8); Lymphocytes % (A) 14 %; MCH 23.1 pg (25.0-35.0); MCHC 28.1 g/dL (31.0-37.0); MCV 82.2 fL (80.0-100.0); Mean Platelet Volume 8.7; Microcytosis Marked; Monocytes # (A) 0.5 k/uL (0-1.0); Monocytes % (A) 5 %; Neutrophils # (A) 7.4 k/uL (1.3-7.7); Neutrophils % (A) 76 %; Platelet Count 332 k/uL (150-450); Poikilocytosis Marked; RBC 3.33 m/uL (3.80-5.40); WBC 9.6 k/uL (3.8-10.6)
[2018-03-29 08:59] LABS: RDW 28.6 % (11.5-15.5)
--- NOTE | 2018-03-29 12:56 | P.DS ---
Providers Date of admission: 03/24/18 15:18 Expected date of discharge: 03/29/18 Attending physician: Edwin Wade MD Consults: 03/24/18 15:18 Consult Physician Routine Consulting Provider: Red Comer Consult Reason/Comments: icu Do you want consulting provider notified?: Yes 03/24/18 16:05 Consult Physician Routine Consulting Provider: Karina De Souza Consult Reason/Comments: vaginal bleed Do you want consulting provider notified?: Yes 03/25/18 10:01 Consult Physician Routine Consulting Provider: Silvana Tolbert Consult Reason/Comments: elevated troponins Do you want consulting provider notified?: Yes 03/26/18 09:33 Consult Physician Routine Consulting Provider: Zahra Myers Consult Reason/Comments: anemia Do you want consulting provider notified?: Already Contacted Primary care physician: Esther Cherry MD Hospital Course: 47-year-old female without significant past medical history and currently taking no home medication who presented to emergency room with complaint of lightheadedness, shortness of breath and several fainting episodes. Her symptoms started approximately 1 week ago with fatigue that was progressive and some over few days became extreme. With the last couple days she started feeling short of breath with exertion. Over the last 2-3 days she's been feeling very lightheaded when getting up and trying to walk and fainted couple of times. There was no headache vision changes chest pain fever chills or abdominal pain. Extreme fatigue and light headedness prompting her to come to emergency department where initial blood work showed hemoglobin of 2. 2 months prior to this admission patient started experiencing occasional hot flashes and attacks of fatigue that were at that time short lasting. Soon after that she noticed difficulties in caring for everyday activities and concentration. She did not notice any vaginal bleeding or melena or hematochezia. She did not notice any abdominal or back pain. She did not notice her eyes or skin turning yellow. No hematuria or darkening of the urine. She essentially denied any skin rashes, fever, chills, recent illnesses, enlarging lymph nodes in the neck or the groins, night sweats, weight or appetite loss. 2 years prior to this admission she was diagnosed with right ovary cyst for which she underwent laparoscopic right sided all ophoro- salpingotomy. 16 years prior to this admission she underwent elective hysterectomy and since then she didn't notice any vaginal bleeding. In the emergency department she had CT chest abdomen and pelvis. CT of the pelvis showed retroverted soft tissue density posterior to bladder. High- density material certain this centrally and uterus. Differential was acute hemorrhage in the remnant vaginal cuff. New cystic lesion in the left lower abdomen and upper pelvis likely due to an ovary. Adjacent to this is presumed left ovary with cystic lesion largest measures 4.12.7 cm. Rest of the imaging was unremarkable except mild cardiomegaly and small bilateral pleural effusions. Laboratory data showed elevated lactic acid of 8.2, liver enzymes in 1999, normal bilirubin, troponin 0.083, with normal platelet and white blood cell count. Her hematological indices came back very low with MCV 55.9 and elevated RDW. Elevated troponin: EKG was within normal limits, no acute ST or T-wave changes. Patient was seen by cardiology who thought that she had demand mismatch ischemia due to severe anemia. Echocardiogram showed LA dilation but normal EF, no regional wall motion abnormalities found. No further recommendations were made for any interventions or treatment with antiplatelets or blood thinners.. Elevated LFTs: LFTs trended down throughout the admission, the reason for that was thought to be secondary to ischemia due to severe anemia. Hepatitis profile was negative. Ovarian cyst: Patient was seen by Dr. Stiles from [facility] who thought that patient can follow-up with outpatient pelvic ultrasound, no acute surgical intervention was advised. Severe anemia: Initially throughout the admission patient was transfused multiple units of packed RBCs, and hemoglobin came up from 2 to 7, after that she did not require any more transfusion. Anemia workup showed that patient was severely iron deficient, she was seen by oncology. IV iron was prescribed. Subsequently she was started on oral iron. She was also seen by GI who did an EGD and colonoscopy, EGD showed hiatal hernia with gastric mucosal erosion. Patient was started on PPI as well as aspirin therapy. Today patient will be discharged home in a stable condition. She was instructed to follow-up with [facility] as well as oncology in addition to her primary care physician. A prescription for follow-up CBC was given to the patient. Patient Condition at Discharge: Critical Plan - Discharge Summary Discharge Rx Participant: Yes New Discharge Prescriptions: New Ferrous Sulfate [Iron (65 MG Elemental)] 325 mg PO TID-W/MEALS #180 tab Pantoprazole [Protonix] 40 mg PO AC-BRKFST #120 tablet. Continue Dextroamphetamine/Amphetamine [Adderall] 20 mg PO BID Albuterol Inhaler [Ventolin Hfa Inhaler] 2 puff INHALATION RT-Q6H PRN PRN Reason: asthma Discharge Medication List Dextroamphetamine/Amphetamine [Adderall] 20 mg PO BID 06/27/15 [History] Albuterol Inhaler [Ventolin Hfa Inhaler] 2 puff INHALATION RT-Q6H PRN 07/18/15 [ History] Ferrous Sulfate [Iron (65 MG Elemental)] 325 mg PO TID-W/MEALS #180 tab [Rx] Pantoprazole [Protonix] 40 mg PO AC-BRKFST #120 tablet. 03/29/18 [Rx] Follow up Appointment(s)/Referral(s): Karina De Souza MD [STAFF PHYSICIAN] - 1 Week (please call office to schedule an appointment) Esther Cherry MD [Primary Care Provider] - 03/30/18 10:00 am Zahra Myers MD [STAFF PHYSICIAN] - 04/25/18 3:15 pm Patient Instructions/Handouts: Anemia (DC) Activity/Diet/Wound Care/Special Instructions: activity as tolerated continue regular diet as tolerated
--- NOTE | 2018-03-29 20:34 | P.PN ---
Subjective Progress Note Date: 03/29/18 Principal diagnosis: microcytic, hypochromic iron deficient anemia Pt is seen in f/u, she feels good today, she had her EGD and colonoscopy, she has had parenteral iron, denies any bleeding or abd pain. Objective - Vital Signs Vital signs: Vital Signs Temp 98.0 F 03/29/18 06:58 Pulse 79 03/29/18 06:58 Resp 16 03/29/18 06:58 BP 109/50 03/29/18 06:58 Pulse Ox 96 03/29/18 06:58 Intake & Output 03/29/18 03/29/18 03/30/18 06:59 18:59 06:59 Intake Total 775 Balance 775 Intake: IV 400 Sodium Chloride 0.9% 1, 400 000 ml @ 50 mls/hr IV . Q20H GIANLUCA Rx#:[id number] Oral 375 Other: # Voids 1 - Exam WDWN, NAD, A&O x 4, respirations even and unlabored, no abd distension or lower extremity swelling,mobile independently - Labs CBC & Chem 7: 03/29/18 08:01 03/29/18 08:01 Labs: Abnormal Lab Results - Last 24 Hours (Table) 03/29/18 03/29/18 Range/Units 08:01 08:01 RBC 3.33 L (3.80-5.40) m/uL Hgb 7.7 L (11.4-16.0) gm/dL Hct 27.4 L (34.0-46.0) % MCH 23.1 L (25.0-35.0) pg MCHC 28.1 L (31.0-37.0) g/dL RDW 28.6 H (11.5-15.5) % AST 53 H (14-36) U/L ALT 374 H (9-52) U/L Total Protein 4.8 L (6.3-8.2) g/dL Albumin 2.5 L (3.5-5.0) g/dL Assessment and Plan (1) Microcytic hypochromic anemia Narrative/Plan: Pt was found to have some ulcerations in a hiatal hernia and some gastritis on EGD, biopsies pending. Pt has been supplemented with IV iron, she will be discharged with oral iron. Plan is to f/u with Dr. Myers in 1 month to evaluate iron stores. Pt will see her PCP in 1 week to check Hgb. Pt verbalized understanding the plan Case discussed with Attending Status: Acute Priority: High Code(s): D50.9 - IRON DEFICIENCY ANEMIA, UNSPECIFIED SNOMED Code(s): 55195298
== END 2018-03-29 13:48 | disposition home or self-care (01) | DRG 811 ==
LOC: EC 10:04 → 6ICU 15:18 → 4MS4W 03-25 11:32
PROVIDERS: ADMIT Family Medicine; ATTEND Family Medicine
PROC: 30233N1 Transfusion of Nonautologous Red Blood Cells into Peripheral Vein, Percutaneous Approach (ICD-10-PCS; principal; 2018-03-24)
PROC: 0DB98ZX Excision of Duodenum, Via Natural or Artificial Opening Endoscopic, Diagnostic (ICD-10-PCS; 2018-03-24)
PROC: 0DB68ZX Excision of Stomach, Via Natural or Artificial Opening Endoscopic, Diagnostic (ICD-10-PCS; 2018-03-24)
PROC: 0DJD8ZZ Inspection of Lower Intestinal Tract, Via Natural or Artificial Opening Endoscopic (ICD-10-PCS; 2018-03-24)
DX: D50.9 Iron deficiency anemia, unspecified (principal); I21.A1 Myocardial infarction type 2; E87.2 Acidosis; K25.3 Acute gastric ulcer without hemorrhage or perforation; R17 Unspecified jaundice; S36.119A Unspecified injury of liver, initial encounter; E86.0 Dehydration; E87.6 Hypokalemia; I27.20 Pulmonary hypertension, unspecified; I50.83 High output heart failure; J45.20 Mild intermittent asthma, uncomplicated; K21.9 Gastro-esophageal reflux disease without esophagitis; K29.70 Gastritis, unspecified, without bleeding; K44.9 Diaphragmatic hernia without obstruction or gangrene; K57.30 Diverticulosis of large intestine without perforation or abscess without bleeding; K64.8 Other hemorrhoids; N83.201 Unspecified ovarian cyst, right side; T80.89XA Other complications following infusion, transfusion and therapeutic injection, initial encounter; Z79.82 Long term (current) use of aspirin; Z90.710 Acquired absence of both cervix and uterus; Z90.721 Acquired absence of ovaries, unilateral; Z91.81 History of falling; Z79.899 Other long term (current) drug therapy; R55 Syncope and collapse; R74.0 Nonspecific elevation of levels of transaminase and lactic acid dehydrogenase [LDH]
CPT/HCPCS: 36415; 43239; 45378; 51702; 70450; 71045; 71275; 74176; 76705; 76830; 76856; 80053; 81003; 82140; 82248; 82550; 82553; 82607; 82728; 83010; 83520; 83540; 83550; 83605; 83615; 83690; 83735; 84100; 84484; 85025; 85045; 85379; 85610; 85730; 86704; 86706; 86707; 86709; 86803; 86850; 86880; 86900; 86901; 86920; 87340; 87350; 88305; 93005; 93306; 94640; 96361; 96374; 96375; 99291

== ENCOUNTER → 2019-02-22 | Outpatient (CLI) | payer OTHER | END | disposition home or self-care (01) | LOC: LABPAT 13:23 | PROVIDERS: ATTEND Orthopaedic Surgery | DX: Z01.812 Encounter for preprocedural laboratory examination (principal); M16.12 Unilateral primary osteoarthritis, left hip | CPT/HCPCS: 87070 ==

== ENCOUNTER → 2019-05-24 | Outpatient (CLI) | payer OTHER | END | disposition home or self-care (01) | LOC: LABPAT 10:13 | PROVIDERS: ATTEND Orthopaedic Surgery | DX: Z53.9 Procedure and treatment not carried out, unspecified reason (principal) ==

== ENCOUNTER 2019-06-04 09:35 | Inpatient (IN) | payer OTHER ==
[2019-05-24 11:26] LABS: Anisocytosis Slight; HCT 35.2 % (34.0-46.0); HGB 11.5 gm/dL (11.4-16.0); Hypochromasia Moderate; MCH 28.5 pg (25.0-35.0); MCHC 32.6 g/dL (31.0-37.0); MCV 87.4 fL (80.0-100.0); Mean Platelet Volume 7.1; Microcytosis Slight; Platelet Count 300 k/uL (150-450); RBC 4.02 m/uL (3.80-5.40); RDW 19.2 % (11.5-15.5)
[2019-05-24 11:38] LABS: INR 0.9 (<1.2); Prothrombin Time 9.8 sec (9.0-12.0)
[2019-05-24 11:41] LABS: Potassium 4.6 mmol/L (3.5-5.1)
[2019-05-24 11:54] LABS: Basophils # (M) 0.05 k/uL (0-0.2); Eosinophils # (M) 0.25 k/uL (0-0.7); Lymphocytes # (M) 0.85 k/uL (1.0-4.8); Monocytes # (M) 0.35 k/uL (0-1.0); Neutrophils % (M) 70 %; Nucleated Red Blood Cells 0 /100 WBC (0-0); Total Cells Counted 100
[2019-05-24 11:55] LABS: Large Platelets Present
--- NOTE | 2019-06-03 15:29 | HP ---
HISTORY AND PHYSICAL REASON FOR ADMISSION: Surgery is 06/04/2019 HISTORY OF PRESENT ILLNESS: Krystal Zuluaga is a 48-year-old patient seen with symptomatic left hip osteoarthritis. We discussed options for treatment. She elected to proceed with left total hip arthroplasty. Consent was obtained. Medical clearance was provided by Dr. Eugene. PAST MEDICAL HISTORY: Asthma. PAST SURGICAL HISTORY: Hysterectomy, laparoscopy, shoulder arthroscopy. MEDICATIONS: Aleve, ibuprofen, Tylenol. ALLERGIES: CODEINE. SOCIAL HISTORY: She denies current tobacco use. PHYSICAL EXAMINATION: Evaluation of the left hip: Limited range of motion with severe pain. Positive hip impingement sign. Straight leg raise is negative. Distal neurovascular exam is intact. RADIOGRAPHS: Radiographs of the left hip reveal severe osteoarthritic changes. IMPRESSION: 1. Left hip osteoarthritis. 2. Asthma. PLAN: Direct anterior left total hip arthroplasty. Surgery is scheduled for 06/04/2019. MMODL / IJN: [id number] /
[~2019-06-04 09:35] MED LIST: ACETAMINOPHEN TAB 500 MG TAB PO ONE; DEXAMETHASONE SOD PHOSPHATE 10 MG/ML 1 ML VIAL IV ONE; LACTATED RINGERS 1,000 ML IV SCH; MELOXICAM 7.5 MG TAB PO ONE; MIDAZOLAM 2 MG/2 ML VIAL IV PRN; ONDANSETRON 4 MG/2 ML VIAL IVP ONE; ROPIVACAINE 246.25 MG, EPINEPHrine 0.5 MG, KETOROLAC 30 MG, cloNIDine HCL/PF 80 MCG, WA... MISCELLANE ONE; SCOPOLAMINE 1.5MG/72HR PATCH TRANSDERM ONE; TRANEXAMIC ACID 1,000 MG in SODIUM CHLORIDE 0.9% 100 ML IVPB ONE; fentaNYL (PF) 50 MCG/ML 2 ML AMP IV PRN
[2019-06-04] MEDS ORDERED: LIDOCAINE 1% 20 ML VIAL (10MG/ML) FOR IV START INTRADERMA ONE (10:26)
[2019-06-04] MEDS ORDERED: PROPOFOL 10 MG/ML 20 ML VIAL IV ONE (11:08)
[2019-06-04] MEDS ORDERED: MIDAZOLAM 2 MG/2 ML VIAL ONE (11:08)
[2019-06-04] MEDS ORDERED: SODIUM CHLORIDE 0.9% 100 ML BAG ONE (11:08)
[2019-06-04] MEDS ORDERED: TRANEXAMIC ACID 1,000 MG/10 ML VIAL ONE (11:08)
[2019-06-04] MEDS ORDERED: fentaNYL (PF) 50 MCG/ML 2 ML AMP ONE (11:08)
[2019-06-04] MEDS ORDERED: MORPHINE SULFATE (PF) 0.3 MG/0.3 ML SYR ONE (11:08)
[2019-06-04] MEDS ORDERED: LIDOCAINE 1% INJ 10MG/ML (20 ML MDV) ONE (11:08)
[2019-06-04] MEDS ORDERED: SUCCINYLCHOLINE CHLORIDE 100 MG/5 ML SYR IV ONE (11:08)
[2019-06-04] MEDS ORDERED: ceFAZolin 3,000 MG in SODIUM CHLORIDE 0.9% IRRIGATIO 3,000 ML IRRIGATION ONE (11:12)
[2019-06-04] MEDS ORDERED: LACTATED RINGERS 1,000 ML IV ONE ×2 (12:06→12:15)
[2019-06-04] MEDS ORDERED: HYDROcodone/APAP 5-325MG 1 EACH TAB PO PRN (13:21)
[2019-06-04] MEDS ORDERED: NALOXONE 0.4 MG/ML 1 ML VIAL IV PRN (13:21)
[2019-06-04] MEDS ORDERED: HYDROmorphone 0.5 MG/0.5 ML SYRINGE IVP PRN ×2 (13:21)
[2019-06-04] MEDS ORDERED: ONDANSETRON 4 MG/2 ML VIAL IVP PRN (13:21)
--- NOTE | 2019-06-04 13:21 | P.OP ---
Date of Procedure: 06/04/19 Preoperative Diagnosis: Left hip osteoarthritis Postoperative Diagnosis: Left hip osteoarthritis Procedure(s) Performed: Direct anterior left total hip arthroplasty Implants: 1. Depuy Corail KA size 11 standard collar press femoral stem 2. Depuy pinnacle 52 mm press-fit acetabular shell 3. Depuy pinnacle polyethylene acetabular liner neutral 36 mm ID 52 mm OD 4. Biolox delta ceramic femoral head +1.5 36 mm Anesthesia: IRENEA, local Surgeon: Lonnie Guzman Flavor Maker #1: Jensen De La Torre Estimated Blood Loss (ml): 125 Pathology: other (Edvin head) Condition: stable Disposition: PACU Indications for Procedure: 49-year-old patient seen with progressive left hip symptomatic osteoarthritis. After treatment options were discussed, she elected to proceed with direct anterior total hip arthroplasty. Operative Findings: See description of procedure Description of Procedure: The patient was taken to the operative suite. Patient underwent a general anesthetic by the department of anesthesia. Patient was then transferred to the [place] table. Patient was given preoperative IV antibiotics and TXA. Both lower extremities were placed in standard leg spars. The hip was then prepped and draped in the normal sterile orthopedic fashion. A standard anterior incision was made beginning 3 cm lateral and 1 cm distal to the ASIS extending 10 cm. Dissection was then carried down through the subcutaneous soft tissues down to the fascia overlying the tensor fascia leo. An incision was now made through the fascia. Careful dissection was taken down exposing the tensor fascia leo muscle. A Cobra retractor was now placed along the medial femoral neck and a second one along the lateral femoral neck. The venous circumflex vessels were now identified, cauterized and clipped. We identified the anterior hip capsule. An incision was made through the hip capsule along the lateral border. I performed a partial anterior capsulectomy. Retractors were now placed around the femoral neck itself. A femoral neck cut was now made with a sagittal saw. It was completed with an osteotome at the lateral neck area. The femoral head was now removed without difficulty. The extremity was now rotated to 45 of external rotation. It was locked in position. Residual labrum was now debrided out. Serial reaming was performed of the acetabulum while Bebeto montejo holding an anterior retractor for exposure. Once we reached the appropriate size and a trial was position and fit nicely. The appropriate size was now chosen opened and made available. It was introduced into the acetabulum without difficulty. The C-arm/fluoroscopy was now brought into the operative field. We made sure we had a true AP pelvic view. We now under direct C- arm/fluoroscopy introduced into the acetabular component with appropriate version and inclination. I held the cup in appropriate position well Bebeto STOO used a mallet to seat the acetabular component. I noted the component now to be well seated and stable. Acetabular cup introduce her was removed. The C-arm was pulled back. An appropriate liner was introduced and clicked into position. It was felt to be stable. At this point retractors were removed. The extremity was now placed into 120 external rotation with no traction. The leg was now dropped to the ground and adducted. Appropriate retractors were now positioned along the proximal femur. We also placed our femoral look into position. Additional capsular releasing was performed to gain access to the proximal femur. We now used a box osteotome. A canal finder was now utilized. Serial broaching was now performed with the assistance of Bebeto SOTO tapping the broaches down with a mallet while held the broach in appropriate rotation and position. This was done until we reached the appropriate size with good overall rotational stability. Appropriate calcar planing was performed. A trial head/neck was placed into position. The hip was now reduced. The C- arm/fluoroscopy was brought back into the operative field. AP pelvis was obtained including the lesser trochanters to ascertain leg length which appeared to be adequately aligned. The trial components appear to be adequately position. The C-arm/fluoroscopy was pulled back. Retractors were repositioned and the hip was dislocated. The leg was again taken down to the ground and adducted. Appropriate retractors were repositioned as well as the femoral hook. All trial components were removed. The femoral implant was opened along with the femoral head. The femoral implant was introduced on the appropriate handle into our pre-broached area. I held the component position well Bebeto SOTO used a mallet to seat the femoral component. The femoral component was now noted to be well seated and stable.. The femoral head was introduced with good positioning and fixation noted. Retractors were now removed. The hip was now reduced. There appeared be good positioning of the hip confirmed on intraoperative fluoroscopy. Spot films were obtained to document this. A second gram of TXA was given. The deep and superficial soft tissues were infiltrated with local analgesic. Bipolar cautery had been utilized intermittently through the procedure for hemostasis. The wound was irrigated copiously with pulse lavage mechanical irrigation. The fascia was repaired with Vicryl suture. The subcutaneous soft tissues were repaired in layers with Vicryl suture. The skin was approximated with pernio/Dermabond. Sterile dressings were applied. Patient was then awakened, transferred to a bed and taken to recovery in stable condition. Bebeto SOTO assisted with the complex procedure.
--- NOTE | 2019-06-04 13:25 | XR ---
EXAMINATION TYPE: XR Hip Limited LT DATE OF EXAM: 06/04/2019 COMPARISON: NONE HISTORY: Postop TECHNIQUE: One view submitted. FINDINGS: There is postsurgical change in near anatomic alignment. There is soft tissue edema and emphysema. IMPRESSION: 1. Postoperative change. Appears in near-anatomic alignment.
--- NOTE | 2019-06-04 13:27 | FL ---
EXAMINATION TYPE: FL guidance operating room DATE OF EXAM: 06/04/2019 HISTORY: Flouroscopy time 6 seconds of fluoroscopy provided. IMPRESSION: 1. Fluoroscopy time.
[2019-06-04] MEDS ORDERED: HYDROmorphone 1 MG/ML 1 ML SYRINGE IVP ONE (14:14)
[2019-06-04] MEDS: LACTATED RINGERS 1,000 ML IV SCH (14:56)
[2019-06-04] MEDS: HYDROcodone/APAP 5-325MG 1 EACH TAB PO PRN (16:36)
[2019-06-04 16:43] VITALS: BMI 26.4
[2019-06-04] MEDS ORDERED: IBUPROFEN 800 MG TAB PO PRN (17:04)
[2019-06-04] MEDS ORDERED: ALBUTEROL NEBULIZED 2.5 MG/3 ML INHALATION PRN (17:04)
[2019-06-04] MEDS ORDERED: LEVALBUTEROL INHALATION PRN (17:04)
--- NOTE | 2019-06-04 18:25 | P.CONS ---
History of Present Illness - Reason for Consult Consult date: 06/04/19 Medical Management. Requesting physician: Lonnie Guzman - Chief Complaint Feeling lightheaded and sleepy since morning, unable to sleep for nights. - History of Present Illness This 49-year-old lady with past medical history significant for mild persistent asthma, GERD, anemia, ADHD, rheumatic tricuspid valvular disease with insufficiency, secondary pulmonary hypertension and osteoarthritis of hip joint who was admitted postoperatively after elective left TRACIE surgery. Patient stated that she was admitted to this hospital a year ago with low hemoglobin and she had feelings of lightheadedness which she is having since morning. Patient preoperative hemoglobin was fair. Patient also reported that because of her hip pain she is unable to sleep for a few days and especially the night before she can't sleep because her pain was not well controlled. Patient denies dizziness, vertigo, headaches, visual changes, double visions, chest pain, palpitation, diaphoresis, nausea, vomiting, diarrhea, cough, sputum production, fever, chills and denies rest of the review of system. Patient's surgery underwent uneventful and she was transferred to the postsurgical [facility]eron for subsequent care. Review of Systems 12 point review of system was essentially negative other than mentioned in HPI above. Past Medical History Past Medical History: Asthma, GERD/Reflux, Osteoarthritis (OA) Additional Past Medical History / Comment(s): HX ANEMIA, HX FALLS FROM LEFT HIP ARTHRITIS., ADOPTED. History of Any Multi-Drug Resistant Organisms: None Reported Past Surgical History: Hysterectomy, Tonsillectomy, Tubal Ligation Additional Past Surgical History / Comment(s): rt fallopian tube and ovary remov ed, uterus removed -has lt ovary( cyst removed Left ovary.) Past Anesthesia/Blood Transfusion Reactions: No Reported Reaction, Motion Sickness Additional Past Anesthesia/Blood Transfusion Reaction / Comm: adopted Past Psychological History: ADD/ADHD Additional Psychological History / Comment(s): . Smoking Status: Never smoker Past Alcohol Use History: Occasional Past Drug Use History: None Reported - Past Family History Mother Family Medical History: Unable to Obtain Additional Family Medical History / Comment(s): pt was adopted Medications and Allergies Home Medications Medication Instructions Recorded Confirmed Type Dextroamphetamine/Amphetamine 20 mg PO DAILY 06/27/15 06/04/19 History [Adderall] Pantoprazole [Protonix] 40 mg PO JAYLENE #120 tablet. 03/29/18 06/04/19 Rx Albuterol Sulfate [Proair Hfa] 1 - 2 puff INHALATION Q6HR PRN 05/31/19 06/04/19 History Cetirizine HCl [Zyrtec] 10 mg PO DAILY 05/31/19 06/04/19 History Ferrous Sulfate [Iron (65 MG 325 mg PO BID 05/31/19 06/04/19 History Elemental)] Ibuprofen [Motrin] 800 mg PO TID PRN 05/31/19 05/31/19 History Levalbuterol Hfa Inhaler [Xopenex 1 - 2 puff INHALATION Q6HR PRN 05/31/19 06/04/19 History Hfa Inhaler] Multivitamins, Thera [Multivitamin 1 tab PO DAILY 05/31/19 05/31/19 History (formulary)] traMADol HCL [Ultram] 50 mg PO Q4-6H PRN 05/31/19 06/04/19 History Allergies Allergy/AdvReac Type Severity Reaction Status Date / Time codeine Allergy Nausea & Verified 06/04/19 09:54 Vomiting Physical Exam Vitals: Vital Signs Temp Pulse Pulse Resp BP BP Pulse Ox 06/04/19 16:39 76 121/74 06/04/19 16:24 79 126/80 06/04/19 16:09 68 117/74 06/04/19 15:54 68 121/76 06/04/19 15:39 69 125/78 06/04/19 15:24 87 131/79 06/04/19 15:09 83 136/80 06/04/19 14:54 97.7 F 80 16 131/83 95 06/04/19 14:18 81 16 139/63 95 06/04/19 14:03 84 16 141/73 95 06/04/19 13:48 88 16 140/66 95 06/04/19 13:33 98.4 F 86 16 144/66 93 L 06/04/19 10:09 98 F 72 16 126/64 96 Intake and Output 06/04/19 06/04/19 06/04/19 06:59 14:59 22:59 Intake Total 1750 Output Total 125 Balance 1625 Intake: IV 1750 Output: Estimated Blood Loss 125 - Constitutional Patient was dozing off to sleep during conversation and she had to be actively engaged in conversation to keep her awake. General appearance: cooperative, no acute distress - EENT Eyes: EOMI, normal appearance ENT: hearing grossly normal, NA/AT - Neck Neck: no lymphadenopathy, normal ROM, no rigidity, no stridor, no thyromegaly - Respiratory Respiratory: bilateral: CTA, negative: diminished, dullness, rales, rhonchi, wheezing - Cardiovascular Rhythm: regular Heart sounds: normal: S1, S2 Abnormal Heart Sounds: no systolic murmur, no diastolic murmur, no S3 Gallop, no S4 Gallop - Gastrointestinal General gastrointestinal: no distended, normal bowel sounds, no rigid, soft, no tenderness - Integumentary Integumentary: normal, normal turgor - Neurologic Neurologic: CNII-XII intact - Psychiatric Psychiatric: A&O x's 3, appropriate affect Results CBC & Chem 7: 05/24/19 10:40 05/24/19 10:40 Assessment and Plan Plan: Assessment: 1- Lightheadedness, most likely due to recent insomnia v/s anemia, less likely. 2- Asthma-mild persistant. 3- Anemia. 4- ADHD. 5- Pul. HTN and Rheumatic Tricuspid Insufficiency. 6- OA s/p left TRACIE POD#0. PLAN:- 1- Check CBC now, monitor vitals, let pt. sleep for few hours and monitor. She most likely is sleep deprived as she was dozing during the interview and was able to be aroused with verbal stimuli. 2- Continue PRN Albuterol and/or Lev-Albuterol inhalers. 3- Monitor H&H, no clinical evidence of significant anemia at present. 4- Resume ADHD medications. 5- Post OR pain management and your care, thanks Dr. Guzman for allowing [facility] in taking part in the medical management of your patient. We will continue to follow while she is in-patient. Time with Patient: Less than 30
[2019-06-04 19:08] LABS: Anisocytosis Slight; HCT 29.5 % (34.0-46.0); Hypochromasia Marked; MCHC 32.1 g/dL (31.0-37.0); MCV 87.1 fL (80.0-100.0); Mean Platelet Volume 8.2; Microcytosis Slight; Platelet Count 258 k/uL (150-450); Poikilocytosis Slight; RBC 3.39 m/uL (3.80-5.40); RDW 17.5 % (11.5-15.5); WBC 10.4 k/uL (3.8-10.6)
[2019-06-04 19:22] LABS: HGB 9.5 gm/dL (11.4-16.0)
[2019-06-04] MEDS: FERROUS SULFATE 325 MG TAB PO SCH (21:41)
[2019-06-04] MEDS: MAG HYDROX/AL HYDROX/SIMETH 30 ML CUP PO PRN (21:41)
[2019-06-04] MEDS: SENNOSIDES-DOCUSATE SODIUM 1 EACH TAB PO SCH (21:41)
[2019-06-05] MEDS: LACTATED RINGERS 1,000 ML IV SCH ×3 (00:19→12:49)
[2019-06-05] MEDS: HYDROcodone/APAP 5-325MG 1 EACH TAB PO PRN ×3 (02:52→19:51)
[2019-06-05] MEDS: MAG HYDROX/AL HYDROX/SIMETH 30 ML CUP PO PRN (05:09)
[2019-06-05 07:51] LABS: Anisocytosis Slight; HCT 26.6 % (34.0-46.0); HGB 8.5 gm/dL (11.4-16.0); Hypochromasia Moderate; MCH 27.5 pg (25.0-35.0); MCHC 31.8 g/dL (31.0-37.0); MCV 86.6 fL (80.0-100.0); Mean Platelet Volume 7.3; Microcytosis Slight; Platelet Count 291 k/uL (150-450); Poikilocytosis Slight; RBC 3.07 m/uL (3.80-5.40); RDW 17.4 % (11.5-15.5); WBC 10.4 k/uL (3.8-10.6)
[2019-06-05] MEDS: HYDROmorphone 1 MG/ML 1 ML SYRINGE IVP PRN ×2 (08:03→15:45)
[2019-06-05] MEDS: MELOXICAM 7.5 MG TAB PO SCH (08:04)
[2019-06-05] MEDS: MULTIVITAMINS, THERA 1 EACH TAB PO SCH (08:04)
[2019-06-05] MEDS: FERROUS SULFATE 325 MG TAB PO SCH ×2 (08:04→19:51)
[2019-06-05] MEDS: PANTOPRAZOLE 40 MG TABLET PO SCH (08:04)
[2019-06-05] MEDS: ENOXAPARIN 40 MG/0.4 ML SYRINGE SQ SCH ×3 (08:05→10:53)
[2019-06-05] MEDS: LORATADINE 10 MG TAB PO SCH (08:05)
[2019-06-05 08:06] LABS: Lymphocytes # (M) 0.52 k/uL (1.0-4.8); Monocytes # (M) 0.52 k/uL (0-1.0); Neutrophils % (M) 90 %; Nucleated Red Blood Cells 0 /100 WBC (0-0); Total Cells Counted 100
[2019-06-05 08:08] LABS: Polychromasia Present
[2019-06-05] MEDS ORDERED: FAMOTIDINE 20 MG TAB PO SCH (09:00)
[2019-06-05] MEDS ORDERED: NON FORMULARY DRUG (Dextroamphetamine/Amphetamine [Adderall] 20 MG) PO SCH (09:00)
[2019-06-05] MEDS ORDERED: SODIUM CHLORIDE 0.9% 500 ML 500 ML IV ONE (10:22)
--- NOTE | 2019-06-05 10:34 | P.PN ---
Subjective Progress Note Date: 06/05/19 Patient reports that she had a very nice sleep last night but she is still little lightheaded especially when she gets up and walk around. Patient stated that she had similar episode of symptoms when her hemoglobin was very low. It was noted that her BP is dropping too, that may have contributed to the p ositional light headedness. She stated that she had seen Dr. Eugene and who had infuse iron in March 2019. After that her hemoglobin was slightly better but again it was noted that patient hemoglobin has declined about 3 g postoperatively. Patient denies chest pain, palpitation, headache, fever/chills, nausea/vomiting, cough/sputum and denies rest of the review system. Objective - Vital Signs Vital signs: Vital Signs Temp 98.8 F 06/05/19 07:00 Pulse 71 06/05/19 07:00 Resp 17 06/05/19 07:00 BP 99/59 06/05/19 07:00 Pulse Ox 97 06/05/19 07:00 Intake & Output 06/04/19 06/05/19 06/05/19 18:59 06:59 18:59 Intake Total 1930 Output Total 125 Balance 1805 Intake: IV 1750 Oral 180 Output: Estimated Blood Loss 125 Other: Voiding Method Toilet # Voids 2 - Constitutional General appearance: Present: cooperative, no acute distress - EENT Eyes: Present: EOMI, PERRLA, normal appearance ENT: Present: hearing grossly normal, NA/AT - Neck Neck: Present: normal ROM. Absent: lymphadenopathy, rigidity, stridor, thyromegaly - Respiratory Respiratory: bilateral: CTA, negative: diminished, dullness, rales, rhonchi, wheezing - Cardiovascular Rhythm: regular Heart sounds: normal: S1, S2 Abnormal Heart Sounds: Absent: systolic murmur, diastolic murmur, S3 Gallop, S4 Gallop - Gastrointestinal General gastrointestinal: Present: normal bowel sounds, soft. Absent: distended, rigid, tenderness - Neurologic Neurologic: Present: CNII-XII intact. Absent: focal deficits - Psychiatric Psychiatric: Present: A&O x's 3, appropriate affect, intact judgment & insight - Allied health notes Allied health notes reviewed: nursing - Labs CBC & Chem 7: 06/05/19 06:52 05/24/19 10:40 Labs: Abnormal Lab Results - Last 24 Hours (Table) 06/04/19 06/05/19 Range/Units 18:54 06:52 RBC 3.39 L 3.07 L (3.80-5.40) m/uL Hgb 9.5 L D 8.5 L (11.4-16.0) gm/dL Hct 29.5 L 26.6 L (34.0-46.0) % RDW 17.5 H 17.4 H (11.5-15.5) % Neutrophils # (Manual) 9.36 H (1.3-7.7) k/uL Lymphocytes # (Manual) 0.52 L (1.0-4.8) k/uL Assessment and Plan Plan: Assessment: 1- Lightheadedness, persisting post good night sleep, Low BP v/s anemia. 2- Asthma-mild persistant. 3- Anemia. 4- ADHD. 5- Pul. HTN and Rheumatic Tricuspid Insufficiency. 6- OA s/p left TRACIE POD#0. PLAN:- 1- patient drowsiness is improved but she still lightheaded especially when she stands up, her blood pressure is low usually around 130s systolic currently being 90's systolic and patient is symptomatic. I will give 500 mL IV bolus and monitor its effects on patient's symptoms and blood pressure and I will take the lead she'll he of consulting Dr. Eugene, patient's ka[place], regarding patient's dropping hemoglobin. Patient may need iron replacement again but will defer this to patient's kaiawhina recommendations. 2- Continue PRN Albuterol and/or Lev-Albuterol inhalers. 3- Monitor H&H, no clinical evidence of bleeding, but severe Iron Defficiency anemia per history, may benefit from iron replacements. 4- Resume ADHD medications. 5- Your post OP care. Time with Patient: Greater than 30 (Coordination of care and >50% marilia spent with pt. for counseling.)
[2019-06-05] MEDS: SODIUM FERRIC GLUCONAT-SUCROSE 125 MG in SODIUM CHLORIDE 0.9% 100 ML IVPB SCH (11:39)
--- NOTE | 2019-06-05 13:32 | P.PN ---
Subjective Progress Note Date: 06/05/19 Principal diagnosis: Status post direct anterior left total hip arthroplasty Patient evaluated at bedside, she is family present. She is resting comfortably. Patient is doing well at this time. She is ambulating well with therapy. Initially this morning there was some lightheadedness and dizziness, this has improved. She's currently receiving IV iron for her low hemoglobin. Objective - Vital Signs Vital signs: Vital Signs Temp 98.8 F 06/05/19 07:00 Pulse 71 06/05/19 07:00 Resp 17 06/05/19 07:00 BP 99/59 06/05/19 07:00 Pulse Ox 97 06/05/19 07:00 Intake & Output 06/04/19 06/05/19 06/05/19 18:59 06:59 18:59 Intake Total 1930 Output Total 125 Balance 1805 Intake: IV 1750 Oral 180 Output: Estimated Blood Loss 125 Other: Voiding Method Toilet # Voids 2 1 - Exam Left lower extremity: Incision is clean, dry, and intact. The exofin fusion tape is in good condition. There is minimal soft tissue swelling and ecchymosis surrounding the medial and lateral aspects of the incision. Calf is soft, no tenderness with palpation. Plantar flexion, dorsiflexion, EHL, FHL are intact. Sensory exam to light touch throughout the extremity is intact, dorsal pedis pulses 2+. - Labs CBC & Chem 7: 06/05/19 06:52 05/24/19 10:40 Labs: Abnormal Lab Results - Last 24 Hours (Table) 06/04/19 06/05/19 Range/Units 18:54 06:52 RBC 3.39 L 3.07 L (3.80-5.40) m/uL Hgb 9.5 L D 8.5 L (11.4-16.0) gm/dL Hct 29.5 L 26.6 L (34.0-46.0) % RDW 17.5 H 17.4 H (11.5-15.5) % Neutrophils # (Manual) 9.36 H (1.3-7.7) k/uL Lymphocytes # (Manual) 0.52 L (1.0-4.8) k/uL Assessment and Plan Plan: Postoperative day #1 status post right anterior left total hip arthroplasty Plan: Pain control, continue current medication GI and DVT prophylaxis, continue current medication Wound care instructions discussed Continue physical therapy Encourage incentive spirometer Hopeful discharged home tomorrow Time with Patient: Less than 30
--- NOTE | 2019-06-05 13:59 | P.CONS ---
History of Present Illness - Reason for Consult Consult date: 06/05/19 Anemia - History of Present Illness Ms Zuluaga is a 49 yr old white female, initially seen in consult at [facility] in 03/25. She had presented with progressive shortness of breath, lightheadedness and several fainting episodes with symptoms starting about 7-10 days ago. The lightheadedness and syncopal episodes with exertion or started about 2-3 days prior. About 2 months prior to that she had had complains of hot flashes, fatigue, and difficulty in concentration. In the emergency room she was found to have a hemoglobin in the 2 range with MCV in the 55 range. She was transfused with appropriate increase in hemoglobin. Labs confirmed severe iron deficiency. She had a CT of the chest abdomen and pelvis, with finding of a soft tissue density in the pelvis with had density material centrally. This was felt to possibly reflect hemorrhage in the remnant vaginal cuff. There was also a cystic lesion in the left adnexa presumed to be the left ovary. The patient had had a hysterectomy in 2001, and right-sided salpingo- oophorectomy in 2015 She received IV iron in the hospital. She had an EGD and colonoscopy, with EGD revealing hiatal hernia with mild erosions and biopsy positive for mild gastritis. She was discharged on ferrous sulfate 325 mg 3 times a day. The patient did not follow-up with hematology as scheduled. She states that she did not have insurance for several months. She continued oral iron, but an over the counter preparation, and twice a day dosing, as she was having severe constipation with the 3 times a day dosing. She was not aware of the dose strength. She was seen by her PCP in 02/23 to get clearance for left THR. His labs showed hemoglobin of 7.6, white count 7.5, MCV 69.7 and platelets 445. She was therefore referred again to hematology and seen for her first office visit on 03/20/19. She had continued to use ibuprofen 800 mg, up to 2-3 times a day since about 12/24, and about 1-2 per day prior to that. Labs showed severe iron deficiency. She received IV iron and was also started on PO iron BID. Her hemoglobin improved to 12.2, and she was cleared for surgery. She continued the by mouth iron, stop at about a week prior to her surgery. She was however using ibuprofen about 3 times a day, again up to a week prior to s urgery. At the time of her hip surgery, the patient Hgb 11.5. Postsurgery fell into the 7 range. There is no obvious bleeding noted. Consult was therefore placed for further evaluation and recommendations Review of Systems Constitutional: Reports fatigue, Reports weakness Eyes: denies blurred vision, denies pain Ears: deny: decreased hearing, ear discharge, earache, tinnitus Past Medical History Past Medical History: Asthma, GERD/Reflux, Osteoarthritis (OA) Additional Past Medical History / Comment(s): HX ANEMIA, HX FALLS FROM LEFT HIP ARTHRITIS., ADOPTED. History of Any Multi-Drug Resistant Organisms: None Reported Past Surgical History: Hysterectomy, Tonsillectomy, Tubal Ligation Additional Past Surgical History / Comment(s): rt fallopian tube and ovary removed, uterus removed -has lt ovary( cyst removed Left ovary.) Past Anesthesia/Blood Transfusion Reactions: No Reported Reaction, Motion Sickness Additional Past Anesthesia/Blood Transfusion Reaction / Comm: adopted Past Psychological History: ADD/ADHD Additional Psychological History / Comment(s): . Smoking Status: Never smoker Past Alcohol Use History: Occasional Past Drug Use History: None Reported - Past Family History Mother Family Medical History: Unable to Obtain Additional Family Medical History / Comment(s): pt was adopted Medications and Allergies Home Medications Medication Instructions Recorded Confirmed Type Dextroamphetamine/Amphetamine 20 mg PO DAILY 06/27/15 06/04/19 History [Adderall] Pantoprazole [Protonix] 40 mg PO AC-BRKFST #120 tablet. 03/29/18 06/04/19 Rx Albuterol Sulfate [Proair Hfa] 1 - 2 puff INHALATION Q6HR PRN 05/31/19 06/04/19 History Cetirizine HCl [Zyrtec] 10 mg PO DAILY 05/31/19 06/04/19 History Ferrous Sulfate [Iron (65 MG 325 mg PO BID 05/31/19 06/04/19 History Elemental)] Ibuprofen [Motrin] 800 mg PO TID PRN 05/31/19 05/31/19 History Levalbuterol Hfa Inhaler [Xopenex 1 - 2 puff INHALATION Q6HR PRN 05/31/19 06/04/19 History Hfa Inhaler] Multivitamins, Thera [Multivitamin 1 tab PO DAILY 05/31/19 05/31/19 History (formulary)] traMADol HCL [Ultram] 50 mg PO Q4-6H PRN 05/31/19 06/04/19 History Allergies Allergy/AdvReac Type Severity Reaction Status Date / Time codeine Allergy Nausea & Verified 06/04/19 09:54 Vomiting Physical Exam Vitals: Vital Signs Temp Pulse Resp BP Pulse Ox 06/05/19 07:00 98.8 F 71 17 99/59 97 06/05/19 01:47 98.2 F 82 18 117/72 98 06/04/19 20:29 98.3 F 81 16 110/67 99 06/04/19 16:39 76 121/74 06/04/19 16:24 79 126/80 06/04/19 16:09 68 117/74 06/04/19 15:54 68 121/76 06/04/19 15:39 69 125/78 06/04/19 15:24 87 131/79 06/04/19 15:09 83 136/80 06/04/19 14:54 97.7 F 80 16 131/83 95 06/04/19 14:18 81 16 139/63 95 06/04/19 14:03 84 16 141/73 95 06/04/19 13:48 88 16 140/66 95 06/04/19 13:33 98.4 F 86 16 144/66 93 L Intake and Output 06/04/19 06/05/19 06/05/19 22:59 06:59 14:59 Intake Total 180 Balance 180 Intake: Oral 180 Other: Voiding Method Toilet # Voids 2 1 - Constitutional General appearance: no acute distress - EENT Eyes: EOMI, PERRLA ENT: hearing grossly normal, normal oropharynx - Neck Neck: no lymphadenopathy Thyroid: bilateral: normal size - Respiratory Respiratory: bilateral: CTA - Cardiovascular Rhythm: regular Heart sounds: normal: S1, S2 - Gastrointestinal General gastrointestinal: normal bowel sounds, soft - Integumentary Integumentary: normal - Neurologic Neurologic: CNII-XII intact - Musculoskeletal Musculoskeletal: generalized weakness, left sided weakness (at left hip) - Psychiatric Psychiatric: A&O x's 3, appropriate affect Results CBC & Chem 7: 06/05/19 06:52 05/24/19 10:40 Labs: Abnormal Lab Results - Last 24 Hours (Table) 06/04/19 06/05/19 Range/Units 18:54 06:52 RBC 3.39 L 3.07 L (3.80-5.40) m/uL Hgb 9.5 L D 8.5 L (11.4-16.0) gm/dL Hct 29.5 L 26.6 L (34.0-46.0) % RDW 17.5 H 17.4 H (11.5-15.5) % Neutrophils # (Manual) 9.36 H (1.3-7.7) k/uL Lymphocytes # (Manual) 0.52 L (1.0-4.8) k/uL Comments: op report reviewed Assessment and Plan (1) Anemia Narrative/Plan: This is been an ongoing issue for the patient, as noted in the HPI. The source of bleed appears to be either the upper GI, and/or small bowel AVMs. This is likely exacerbated by her ongoing NSAID use. The patient has responded well to IV and oral iron with increase in hemoglobin to 12.2. Preop the hemoglobin was 11.5. A drop in hemoglobin postoperative is likely due to operative blood loss, and pre-existing low iron stores despite the near normal hemoglobin. - Hemoglobin is still in a safe range. Continue to monitor and transfuse if hemoglobin is less than 7 - Additional IV iron will be ordered. - Continue by mouth iron - Continue to monitor as an outpatient post discharge. Her anemia is likely to become easier to manage his the patient is able to get off the NSAIDs postsurgery Current Visit: No Status: Acute Priority: High Code(s): D64.9 - ANEMIA, UNSPECIFIED SNOMED Code(s): 173849499 (2) S/P total hip arthroplasty Narrative/Plan: Postop management was orthopedics, as well as medical service. The patient will need anticoagulation. She was advised that anticoagulation could exacerbate her anemia given the likely cause. However without anticoagulation, she would be at risk of DVT/PE, which in addition to the immediate mortality/morbidity, would actually require a much longer duration of anticoagulation, and thus potentially more prolonged issues with anemia. Therefore based on the risk-benefit, it was recommended that the patient have standard postop anticoagulation for DVT prophylaxis. She will be monitored closely with aggressive iron supplementation to try to keep her hemoglobin in a safe range. She was agreeable to the same. Nursing was therefore asked to started administering Lovenox which had been ordered by orthopedic surgery. The patient had been refusing this before but was now okay to start Current Visit: Yes Status: Acute Code(s): Z96.649 - PRESENCE OF UNSPECIFIED ARTIFICIAL HIP JOINT SNOMED Code(s): 644785666498
[2019-06-05] MEDS: SENNOSIDES-DOCUSATE SODIUM 1 EACH TAB PO SCH (19:51)
[2019-06-06] MEDS: HYDROmorphone 1 MG/ML 1 ML SYRINGE IVP PRN ×2 (00:55→07:24)
[2019-06-06 02:10] VITALS: TEMP 98.4
[2019-06-06] MEDS: LACTATED RINGERS 1,000 ML IV SCH (04:54)
[2019-06-06] MEDS: HYDROcodone/APAP 5-325MG 1 EACH TAB PO PRN (06:23)
[2019-06-06] MEDS: PANTOPRAZOLE 40 MG TABLET PO SCH (06:23)
[2019-06-06 07:49] VITALS: BP 144/84; PULSE 78
[2019-06-06 08:09] LABS: Anisocytosis Slight; HCT 25.2 % (34.0-46.0); Hypochromasia Marked; MCH 27.9 pg (25.0-35.0); MCHC 31.8 g/dL (31.0-37.0); MCV 87.9 fL (80.0-100.0); Mean Platelet Volume 7.5; Microcytosis Slight; Platelet Count 261 k/uL (150-450); RBC 2.86 m/uL (3.80-5.40); RDW 17.6 % (11.5-15.5); WBC 6.4 k/uL (3.8-10.6)
[2019-06-06 08:35] LABS: Basophils # (M) 0.06 k/uL (0-0.2); Eosinophils # (M) 0.19 k/uL (0-0.7); Lymphocytes # (M) 1.34 k/uL (1.0-4.8); Monocytes # (M) 0.58 k/uL (0-1.0); Neutrophils % (M) 66 %; Nucleated Red Blood Cells 0 /100 WBC (0-0); Total Cells Counted 100
[2019-06-06 08:36] LABS: Poikilocytosis (M) Present
[2019-06-06] MEDS: MELOXICAM 7.5 MG TAB PO SCH (09:39)
[2019-06-06] MEDS: FERROUS SULFATE 325 MG TAB PO SCH (09:40)
[2019-06-06] MEDS: MULTIVITAMINS, THERA 1 EACH TAB PO SCH (09:40)
[2019-06-06] MEDS: SODIUM FERRIC GLUCONAT-SUCROSE 125 MG in SODIUM CHLORIDE 0.9% 100 ML IVPB SCH (09:40)
[2019-06-06] MEDS: LORATADINE 10 MG TAB PO SCH (09:40)
[2019-06-06] MEDS: ENOXAPARIN 40 MG/0.4 ML SYRINGE SQ SCH (09:40)
[2019-06-06] MEDS ORDERED: HYDROcodone/APAP 7.5-325MG 1 EACH TAB PO PRN (09:49)
--- NOTE | 2019-06-06 09:51 | P.PN ---
Subjective Progress Note Date: 06/06/19 Principal diagnosis: Status post direct anterior left total hip arthroplasty Patient evaluated at bedside, she is family present. She is resting comfortably. Patient is doing well at this time. Objective - Vital Signs Vital signs: Vital Signs Temp 98.4 F 06/06/19 07:00 Pulse 78 06/06/19 07:00 Resp 17 06/06/19 07:00 BP 144/84 06/06/19 07:00 Pulse Ox 95 06/06/19 07:00 Intake & Output 06/05/19 06/06/19 06/06/19 18:59 06:59 18:59 Intake Total 960 Balance 960 Intake: Oral 960 Other: Voiding Method Toilet Toilet # Voids 1 1 - Exam Left lower extremity: Incision is clean, dry, and intact. The exofin fusion tape is in good condition. There is minimal soft tissue swelling and ecchymosis surrounding the medial and lateral aspects of the incision. Calf is soft, no tenderness with palpation. Plantar flexion, dorsiflexion, EHL, FHL are intact. Sensory exam to light touch throughout the extremity is intact, dorsal pedis pulses 2+. - Labs CBC & Chem 7: 06/06/19 07:17 05/24/19 10:40 Labs: Abnormal Lab Results - Last 24 Hours (Table) 06/06/19 Range/Units 07:17 RBC 2.86 L (3.80-5.40) m/uL Hgb 8.0 L (11.4-16.0) gm/dL Hct 25.2 L (34.0-46.0) % RDW 17.6 H (11.5-15.5) % Assessment and Plan Plan: Postoperative day #2 status post right anterior left total hip arthroplasty Plan: Pain control, Crap[place] 7.5 mg/325 mg GI and DVT prophylaxis, 81mg aspirin bid Wound care instructions discussed Continue physical therapy Encourage incentive spirometer discharge home today Time with Patient: Less than 30
--- NOTE | 2019-06-06 09:55 | P.DS ---
Providers Date of admission: 06/04/19 09:35 Expected date of discharge: 06/06/19 Attending physician: Lonnie Guzman Primary care physician: Esther Cherry MD Hospital Course: Date of admission: 06/04/2019 Date of discharge: 06/06/2019 Admission diagnosis: Status post right anterior left total hip arthroplasty Discharge diagnosis: Same Attending physician: Dr. Guzman Surgical procedures: Direct anterior left total hip arthroplasty Brief history: Patient is a 49-year-old female with a history of progressive primary left hip osteoarthritis. At this point patient has failed conservative treatment measures and has opted to proceed with a elective direct anterior left total hip arthroplasty. Hospital course: Details of patient's surgery can be found in operative report. Patient tolerated the procedure well and was subsequently transported to orthopedic floor. Patient's orthopeidc and medical care was provided daily. Patient had daily laboratory tests performed for evaluation of overall blood counts. Patient had daily physical therapy to include strengthening range of motion as well as education with walker ambulation. Patient was treated with Lovenox for their postoperative DVT prophylaxis during their inpatient stay. Patient was noted to have a relatively uneventful postoperative course. Patient reported satisfactory pain control with oral pain medications by postoperative day 0. Patient showed satisfactory progress with physical therapy. Patient moved steadily through the program and had no difficulty meeting the goals by postoperative day 2. Given patient's otherwise satisfactory course and having met physical therapy goals, plan is to discharge patient home on postoperative day 2. Discharge condition/disposition: Patient will be discharged home in stable condition. Discharge medications: Instructions are given on resumption of patient's normal daily medications per primary care recommendation, in addition patient will be prescribed [place] 7.5mg/325mg, Colace 100mg, Aspirin 81mg. Discharge instructions: 1. Wound care and infection precautions, keep incision dry and covered while showering, no lotions, creams, moisturizers. No soaking, tubs, pools, hottubs. Do not scrub over the incision. 2. Weight-bear as tolerated with walker / cane until follow-up. 3. Ice and elevate when necessary. Do not exceed 20 minutes per hour with ice pack. 4. Utilize compression sleeve until seen at first follow up appointment. 5. Visiting nursing care. 6. Home physical therapy. 7. Pain meds and anticoagulants per prescription. 8. Pain medication has potential to cause constipation. Increase oral fluid and fiber intake. Contact primary care provider if you have not had a bowel movement within 48 hours after discharge 9. No anti-inflammatory medication until discussed at first post operative visit, this including Motrin, Aleve, Mobic, Diclofenac. 10. Follow up in office at 2 weeks postop with Bebeto De La Torre PA-C 11. Follow up with your primary care doctor 7-10 days after discharge. 12. Contact [facility] with any questions, . Procedures: Direct anterior left total hip arthroplasty Patient Condition at Discharge: Good Plan - Discharge Summary Discharge Rx Participant: Yes New Discharge Prescriptions: New Aspirin [Adult Low Dose Aspirin EC] 81 mg PO BID #60 tablet. Docusate [Colace] 100 mg PO DAILY #30 capsule HYDROcodone/APAP 7.5-325MG [[place] 7.5] 1 - 2 each PO Q6HR PRN #40 tab PRN Reason: Pain Discontinued Ibuprofen [Motrin] 800 mg PO TID PRN PRN Reason: Pain No Action Dextroamphetamine/Amphetamine [Adderall] 20 mg PO DAILY Pantoprazole [Protonix] 40 mg PO AC-BRKFST #120 tablet. Ferrous Sulfate [Iron (65 MG Elemental)] 325 mg PO BID Levalbuterol Hfa Inhaler [Xopenex Hfa Inhaler] 1 - 2 puff INHALATION Q6HR PRN PRN Reason: Shortness Of Breath Albuterol Sulfate [Proair Hfa] 1 - 2 puff INHALATION Q6HR PRN PRN Reason: Shortness Of Breath traMADol HCL [Ultram] 50 mg PO Q4-6H PRN PRN Reason: Pain Multivitamins, Thera [Multivitamin (formulary)] 1 tab PO DAILY Cetirizine HCl [Zyrtec] 10 mg PO DAILY Discharge Medication List Dextroamphetamine/Amphetamine [Adderall] 20 mg PO DAILY 06/27/15 [History] Pantoprazole [Protonix] 40 mg PO AC-BRKFST #120 tablet. 03/29/18 [Rx] Albuterol Sulfate [Proair Hfa] 1 - 2 puff INHALATION Q6HR PRN 05/31/19 [History] Cetirizine HCl [Zyrtec] 10 mg PO DAILY 05/31/19 [History] Ferrous Sulfate [Iron (65 MG Elemental)] 325 mg PO BID 05/31/19 [History] Levalbuterol Hfa Inhaler [Xopenex Hfa Inhaler] 1 - 2 puff INHALATION Q6HR PRN 05/31/19 [History] Multivitamins, Thera [Multivitamin (formulary)] 1 tab PO DAILY 05/31/19 [History] traMADol HCL [Ultram] 50 mg PO Q4-6H PRN 05/31/19 [History] Aspirin [Adult Low Dose Aspirin EC] 81 mg PO BID #60 tablet.dr 06/06/19 [Rx] Docusate [Colace] 100 mg PO DAILY #30 capsule 06/06/19 [Rx] HYDROcodone/APAP 7.5-325MG [[place] 7.5] 1 - 2 each PO Q6HR PRN #40 tab 06/06/19 [Rx] Follow up Appointment(s)/Referral(s): [facility] [NON-STAFF] - As Needed (walker) Esther Cherry MD [Primary Care Provider] - 1 Week (Please call office to schedule.) [facility], [NON-STAFF] - As Needed Jensen De La Torre PAC [PHYSICIAN CONFERENCE SERVICE COORDINATOR] - 06/20/19 1:50 pm Activity/Diet/Wound Care/Special Instructions: Orthopedic Discharge Instructions: 1. Wound care and infection precautions, keep incision dry and covered while showering, no lotions, creams, moisturizers. No soaking, pools, hot tubs. Do not scrub over incision. 2. Weight-bear as tolerated with walker / cane until follow-up. 3. Ice and elevate when necessary. Do not exceed 20 minutes per hour with ice pack. 4. Utilize compression sleeve until seen at first follow up appointment. 5. Pain meds and anticoagulants per prescription. 6. Pain medication has potential to cause constipation. Increase oral fluid and fiber intake. Contact primary care provider if you have not had a bowel movement within 48 hours after discharge. 7. No anti-inflammatory medication until discussed at first post operative visit, this including Motrin, Aleve, Mobic, Diclofenac. 8. Follow up in office at 2 weeks postop with Bebeto De La Torre PA-C 9. Follow up with your primary care doctor 7-10 days after discharge. 10. Contact [facility] with any questions, . Discharge Disposition: HOME WITH HOME HEALTH SERVICES
[2019-06-06 12:56] VITALS: RESP 12
--- NOTE | 2019-06-06 16:38 | P.PN ---
Subjective Progress Note Date: 06/06/19 The patient was seen and examined at the bedside on 06/06 @ 1000. She reported continued left hip pain, 5 out of 10. She however stated that her dizziness had resolved and she had no additional complaints. She denied chest pain, shortness of breath, nausea, vomiting, fever, or chills. Objective - Vital Signs Vital signs: Vital Signs Temp 98.4 F 06/06/19 12:47 Pulse 78 06/06/19 12:47 Resp 12 06/06/19 12:47 BP 144/84 06/06/19 07:00 Pulse Ox 95 06/06/19 07:00 Intake & Output 06/05/19 06/06/19 06/06/19 18:59 06:59 18:59 Intake Total 960 500 Balance 960 500 Intake: Oral 960 500 Other: Voiding Method Toilet Toilet Toilet # Voids 1 1 3 - Exam General: Non-toxic, in no acute distress, appears stated age, overweight HEENT: NC/AT, anicteric sclerae, moist conjunctiva, no lid-lag, PERRLA Cardiovascular: S1/S2 wnl, no murmurs, rubs, or gallops Lungs: Clear to auscultation, normal respiratory effort, no accessory muscle use Abdominal: Soft, non-tender, non-distended, no guarding, rebound, or rigidity Skin: Warm, dry Extremities: No edema or contractures, postop left hip with clean dressing in place Psychiatric: Alert and oriented to person, place and time, appropriate affect Neuro: CN II-XII grossly intact, no focal deficits noted - Labs CBC & Chem 7: 06/06/19 07:17 05/24/19 10:40 Labs: Abnormal Lab Results - Last 24 Hours (Table) 06/06/19 Range/Units 07:17 RBC 2.86 L (3.80-5.40) m/uL Hgb 8.0 L (11.4-16.0) gm/dL Hct 25.2 L (34.0-46.0) % RDW 17.6 H (11.5-15.5) % Assessment and Plan Plan: Mild intermittent asthma -Continue with inhalers Normocytic anemia, expected after surgery -Monitor for now ADHD -Continue with home meds Status post left hip total arthroplasty -Management including pain control as per the surgery service
== END 2019-06-06 13:57 | disposition home health service (06) | DRG 470 ==
LOC: 2ORMAIN 09:35 → 4SSUR 13:59
PROVIDERS: ADMIT Orthopaedic Surgery; ATTEND Orthopaedic Surgery
PROC: 0SRB04A Replacement of Left Hip Joint with Ceramic on Polyethylene Synthetic Substitute, Uncemented, Open Approach (ICD-10-PCS; principal; 2019-06-04 11:00)
DX: M16.12 Unilateral primary osteoarthritis, left hip (principal); I27.29 Other secondary pulmonary hypertension; I07.1 Rheumatic tricuspid insufficiency; I11.9 Hypertensive heart disease without heart failure; M41.9 Scoliosis, unspecified; D50.0 Iron deficiency anemia secondary to blood loss (chronic); J45.30 Mild persistent asthma, uncomplicated; D64.9 Anemia, unspecified; K21.9 Gastro-esophageal reflux disease without esophagitis; F90.9 Attention-deficit hyperactivity disorder, unspecified type; K44.9 Diaphragmatic hernia without obstruction or gangrene; K59.00 Constipation, unspecified; R32 Unspecified urinary incontinence; N95.1 Menopausal and female climacteric states; E66.3 Overweight; Z68.26 Body mass index [BMI] 26.0-26.9, adult; Z79.899 Other long term (current) drug therapy; Z90.710 Acquired absence of both cervix and uterus; Z87.42 Personal history of other diseases of the female genital tract; Z98.890 Other specified postprocedural states; Z91.09 Other allergy status, other than to drugs and biological substances; Z82.49 Family history of ischemic heart disease and other diseases of the circulatory system; Z82.0 Family history of epilepsy and other diseases of the nervous system
CPT/HCPCS: 36415; 73501; 80051; 85025; 85027; 85610; 86850; 86900; 86901; 87070; 88300

== ENCOUNTER 2019-10-19 10:43 | Observation (INO) | payer OTHER ==
--- NOTE | 2019-10-19 11:32 | ED ---
General Adult HPI - General Chief complaint: Recheck/Abnormal Lab/Rx Stated complaint: low hemoglobin Time Seen by Provider: 10/19/19 11:00 Source: patient, RN notes reviewed, old records reviewed Mode of arrival: ambulatory Limitations: no limitations - History of Present Illness Initial comments: This is a 49-year-old female with a past medical history of anemia. Patient states she was severely anemic the last time she had come to the [facility]. Patient states last night she was told her hemoglobin was low again and she has been feeling fatigued to look for breath so she decided come the emergency department. Patient denies any black or bloody stools. Patient states last time they could not find a reason for her to be so anemic. Patient denies any nausea vomiting diarrhea. Patient denies any abdominal pain. Patient denies any chest pain or palpitations. Patient denies any fever chills or cough. - Related Data Home Medications Medication Instructions Recorded Confirmed Dextroamphetamine/Amphetamine 20 mg PO DAILY 06/27/15 06/04/19 [Adderall] Albuterol Sulfate [Proair Hfa] 1 - 2 puff INHALATION Q6HR PRN 05/31/19 06/04/19 Cetirizine HCl [Zyrtec] 10 mg PO DAILY 05/31/19 06/04/19 Ferrous Sulfate [Iron (65 MG 325 mg PO BID 05/31/19 06/04/19 Elemental)] Levalbuterol Hfa Inhaler [Xopenex 1 - 2 puff INHALATION Q6HR PRN 05/31/19 06/04/19 Hfa Inhaler] Multivitamins, Thera [Multivitamin 1 tab PO DAILY 05/31/19 05/31/19 (formulary)] traMADol HCL [Ultram] 50 mg PO Q4-6H PRN 05/31/19 06/04/19 Previous Rx's Medication Instructions Recorded Pantoprazole [Protonix] 40 mg PO AC-OUMOUKFST #120 tablet. 03/29/18 Aspirin [Adult Low Dose Aspirin EC] 81 mg PO BID #60 tablet. 06/06/19 Docusate [Colace] 100 mg PO DAILY #30 capsule 06/06/19 HYDROcodone/APAP 7.5-325MG [[place] 1 - 2 each PO Q6HR PRN #40 tab 06/06/19 7.5] Allergies Allergy/AdvReac Type Severity Reaction Status Date / Time codeine Allergy Nausea & Verified 06/04/19 09:54 Vomiting Review of Systems ROS Statement: Those systems with pertinent positive or pertinent negative responses have been documented in the HPI. ROS Other: All systems not noted in ROS Statement are negative. Past Medical History Past Medical History: Asthma Additional Past Medical History / Comment(s): falls, still has lt ovary. pne vaccine-not sure of date, chronic anemia History of Any Multi-Drug Resistant Organisms: None Reported Past Surgical History: Hysterectomy, Orthopedic Surgery, Tubal Ligation Additional Past Surgical History / Comment(s): rt fallopian tube and ovary removed, uterus removed still has lt ovary but did have cyst removed off that one, left hip replacement Past Anesthesia/Blood Transfusion Reactions: No Reported Reaction Additional Past Anesthesia/Blood Transfusion Reaction / Comment(s): adopted Past Psychological History: No Psychological Hx Reported Smoking Status: Never smoker Past Alcohol Use History: Occasional Past Drug Use History: None Reported - Past Family History Mother Family Medical History: Unable to Obtain Additional Family Medical History / Comment(s): pt was adopted General Exam - General Exam Comments Initial Comments: GENERAL: Patient is well-developed and well-nourished. Patient is nontoxic and well- hydrated and is in mild distress. ENT: Neck is soft and supple. No significant lymphadenopathy is noted. Oropharynx is clear. Moist mucous membranes. Neck has full range of motion without eliciting any pain. EYES: The sclera were anicteric and conjunctiva were pink and moist. Extraocular movements were intact and pupils were equal round and reactive to light. Eyelids were unremarkable. PULMONARY: Unlabored respirations. Good breath sounds bilaterally. No audible rales rhonchi or wheezing was noted. CARDIOVASCULAR: There is a regular rate and rhythm without any murmurs gallops or rubs. ABDOMEN: Soft and nontender with normal bowel sounds. SKIN: Pale NEUROLOGIC: Patient is alert and oriented x3. Cranial nerves II through XII are grossly intact. Motor and sensory are also intact. Normal speech, volume and content. Symmetrical smile. MUSCULOSKELETAL: Normal extremities with adequate strength and full range of motion. LYMPHATICS: No significant lymphadenopathy is noted PSYCHIATRIC: Normal psychiatric evaluation. Limitations: no limitations Course Vital Signs 10/19/19 10/19/19 10/19/19 10:56 11:17 13:00 Temperature 98.3 F 99.4 F Pulse Rate 90 83 Respiratory 17 20 16 Rate Blood Pressure 156/69 132/76 O2 Sat by Pulse 100 100 Oximetry 10/19/19 13:07 Temperature 99.4 F Pulse Rate 75 Respiratory 16 Rate Blood Pressure 137/73 O2 Sat by Pulse 100 Oximetry Medical Decision Making - Medical Decision Making Patient's hemoglobin was 6.5 and ordered 1 unit of packed red blood cells. I spoke with Dr. Strauss he agreed to admit the patient admitted the patient wrote admitting orders. - Lab Data Result diagrams: 10/19/19 11:10 10/19/19 11:10 Lab Results 10/19/19 10/19/19 10/19/19 Range/Units 11:10 11:10 11:10 WBC 4.6 (3.8-10.6) k/uL RBC 3.67 L (3.80-5.40) m/uL Hgb 6.5 L* (11.4-16.0) gm/dL Hct 24.2 L (34.0-46.0) % MCV 65.7 L (80.0-100.0) fL MCH 17.8 L (25.0-35.0) pg MCHC 27.0 L (31.0-37.0) g/dL RDW 17.1 H (11.5-15.5) % Plt Count 425 (150-450) k/uL Neutrophils % (Manual) 78 % Lymphocytes % (Manual) 16 % Monocytes % (Manual) 4 % Eosinophils % (Manual) 2 % Neutrophils # (Manual) 3.59 (1.3-7.7) k/uL Lymphocytes # (Manual) 0.74 L (1.0-4.8) k/uL Monocytes # (Manual) 0.18 (0-1.0) k/uL Eosinophils # (Manual) 0.09 (0-0.7) k/uL Nucleated RBCs 0 (0-0) /100 WBC Manual Slide Review Performed Large Platelets Present Hypochromasia Marked Poikilocytosis Moderate Anisocytosis Slight Microcytosis Marked PT 9.4 (9.0-12.0) sec INR 0.9 (<1.2) APTT 21.4 L (22.0-30.0) sec Sodium (137-145) mmol/L Potassium (3.5-5.1) mmol/L Chloride (98-107) mmol/L Carbon Dioxide (22-30) mmol/L Anion Gap mmol/L BUN (7-17) mg/dL Creatinine (0.52-1.04) mg/dL Est GFR (CKD-EPI)AfAm (>60 ml/min/1.73 sqM) Est GFR (CKD-EPI)NonAf (>60 ml/min/1.73 sqM) Glucose (74-99) mg/dL Calcium (8.4-10.2) mg/dL Total Bilirubin (0.2-1.3) mg/dL AST (14-36) U/L ALT (4-34) U/L Alkaline Phosphatase (38-126) U/L Total Protein (6.3-8.2) g/dL Albumin (3.5-5.0) g/dL Stool Occult Blood (Negative) Blood Type B Positive Blood Type Recheck B Pos Bld Type Recheck Status No Antibody Screen NEGATIVE Crossmatch See Detail Spec Expiration Date 10/22/2019 - 230910/19/19 10/19/19 Range/Units 11:10 11:36 WBC (3.8-10.6) k/uL RBC (3.80-5.40) m/uL Hgb (11.4-16.0) gm/dL Hct (34.0-46.0) % MCV (80.0-100.0) fL MCH (25.0-35.0) pg MCHC (31.0-37.0) g/dL RDW (11.5-15.5) % Plt Count (150-450) k/uL Neutrophils % (Manual) % Lymphocytes % (Manual) % Monocytes % (Manual) % Eosinophils % (Manual) % Neutrophils # (Manual) (1.3-7.7) k/uL Lymphocytes # (Manual) (1.0-4.8) k/uL Monocytes # (Manual) (0-1.0) k/uL Eosinophils # (Manual) (0-0.7) k/uL Nucleated RBCs (0-0) /100 WBC Manual Slide Review Large Platelets Hypochromasia Poikilocytosis Anisocytosis Microcytosis PT (9.0-12.0) sec INR (<1.2) APTT (22.0-30.0) sec Sodium 138 (137-145) mmol/L Potassium 4.1 (3.5-5.1) mmol/L Chloride 106 (98-107) mmol/L Carbon Dioxide 24 (22-30) mmol/L Anion Gap 8 mmol/L BUN 7 (7-17) mg/dL Creatinine 0.75 (0.52-1.04) mg/dL Est GFR (CKD-EPI)AfAm >90 (>60 ml/min/1.73 sqM) Est GFR (CKD-EPI)NonAf >90 (>60 ml/min/1.73 sqM) Glucose 87 (74-99) mg/dL Calcium 9.4 (8.4-10.2) mg/dL Total Bilirubin 0.4 (0.2-1.3) mg/dL AST 23 (14-36) U/L ALT 17 (4-34) U/L Alkaline Phosphatase 98 (38-126) U/L Total Protein 6.8 (6.3-8.2) g/dL Albumin 4.1 (3.5-5.0) g/dL Stool Occult Blood Negative (Negative) Blood Type Blood Type Recheck Bld Type Recheck Status Antibody Screen Crossmatch Spec Expiration Date Disposition Clinical Impression: Anemia Disposition: ADMITTED IP TO THIS HOSP Is patient prescribed a controlled substance at d/c from ED?: No Referrals: Mayuri Guzman MD [Primary Care Provider] - 1-2 days Time of Disposition: 13:17
[2019-10-19 11:48] LABS: Anisocytosis Slight; HCT 24.2 % (34.0-46.0); Hypochromasia Marked; MCH 17.8 pg (25.0-35.0); MCV 65.7 fL (80.0-100.0); Mean Platelet Volume 8.6; Microcytosis Marked; Platelet Count 425 k/uL (150-450); Poikilocytosis Moderate; RBC 3.67 m/uL (3.80-5.40); RDW 17.1 % (11.5-15.5); WBC 4.6 k/uL (3.8-10.6)
[2019-10-19 11:50] LABS: HGB 6.5 gm/dL (11.4-16.0)
[2019-10-19 11:51] LABS: INR 0.9 (<1.2); Partial Thromboplastin Time 21.4 sec (22.0-30.0); Prothrombin Time 9.4 sec (9.0-12.0)
[2019-10-19 11:52] LABS: ALT 17 U/L (4-34); AST 23 U/L (14-36); African American GFR (CKD) >90 (>60 ml/min/1.73 sqM); Albumin 4.1 g/dL (3.5-5.0); Alkaline Phosphatase 98 U/L (38-126); Anion Gap 8 mmol/L; Blood Urea Nitrogen 7 mg/dL (7-17); Calcium 9.4 mg/dL (8.4-10.2); Carbon Dioxide 24 mmol/L (22-30); Chloride 106 mmol/L (98-107); Glucose 87 mg/dL (74-99); Non-African American GFR(CKD) >90 (>60 ml/min/1.73 sqM); Potassium 4.1 mmol/L (3.5-5.1); Sodium 138 mmol/L (137-145); Total Bilirubin 0.4 mg/dL (0.2-1.3); Total Protein 6.8 g/dL (6.3-8.2)
[2019-10-19 12:38] LABS: Eosinophils # (M) 0.09 k/uL (0-0.7); Lymphocytes # (M) 0.74 k/uL (1.0-4.8); Monocytes # (M) 0.18 k/uL (0-1.0); Neutrophils # (M) 3.59 k/uL (1.3-7.7); Neutrophils % (M) 78 %; Nucleated Red Blood Cells 0 /100 WBC (0-0); Total Cells Counted 100
[2019-10-19 12:39] LABS: Large Platelets Present
[2019-10-19] MEDS ORDERED: SODIUM CHLORIDE 0.9% 1,000 ML IV ONE (13:17)
[2019-10-19] MEDS ORDERED: ONDANSETRON 4 MG/2 ML VIAL IVP PRN (14:37)
[2019-10-19] MEDS ORDERED: NALOXONE 0.4 MG/ML 1 ML VIAL IV PRN (14:37)
[2019-10-19] MEDS ORDERED: ALBUTEROL NEBULIZED 2.5 MG/3 ML INHALATION PRN (14:39)
[2019-10-19] MEDS ORDERED: LORATADINE 10 MG TAB PO PRN (14:39)
--- NOTE | 2019-10-19 15:16 | P.HPIM ---
History of Present Illness H&P Date: 10/19/19 Chief Complaint: Weakness 49-year-old female with a past medical history of anemia presented to the ER because she was told to by her PCP. She was told that her hgb was low again. Patient had a primary care physician check her hemoglobin because she has been feeling fatigued, weak and not having any energy. She was also having shortness of breath, feeling dizzy. No evidence of bleeding, no hematemesis, no hematochezia. About 1-2 years ago she had the same episode of low hemoglobin, had an EGD and colonoscopy and was found some stomach ulcers. She is currently on a PPI. She also takes Motrin for chronic hip pain. Patient denies any nausea vomiting diarrhea. Patient denies any abdominal pain. Patient denies any chest pain or palpitations. Patient denies any fever chills or cough. In the emergency department she was found to have low hemoglobin at 6.5, blood was initiated and patient was admitted to the hospital for further evaluation and management. Review of Systems Complete review of system performed, pertinent positives per HPI, otherwise negative Past Medical History Past Medical History: Asthma Additional Past Medical History / Comment(s): falls, still has lt ovary. pne vaccine-not sure of date, chronic anemia History of Any Multi-Drug Resistant Organisms: None Reported Past Surgical History: Hysterectomy, Orthopedic Surgery, Tubal Ligation Additional Past Surgical History / Comment(s): rt fallopian tube and ovary removed, uterus removed still has lt ovary but did have cyst removed off that one, left hip replacement Past Anesthesia/Blood Transfusion Reactions: No Reported Reaction Additional Past Anesthesia/Blood Transfusion Reaction / Comment(s): adopted Past Psychological History: No Psychological Hx Reported Smoking Status: Never smoker Past Alcohol Use History: Occasional Past Drug Use History: None Reported - Past Family History Mother Family Medical History: Unable to Obtain Additional Family Medical History / Comment(s): pt was adopted Medications and Allergies Home Medications Medication Instructions Recorded Confirmed Type Dextroamphetamine/Amphetamine 20 mg PO BID@0630,1530 06/27/15 10/19/19 History [Adderall] Albuterol Sulfate [Proair Hfa] 2 puff INHALATION RT-Q6H PRN 05/31/19 10/19/19 History Cetirizine HCl [Zyrtec] 10 mg PO DAILY PRN 05/31/19 10/19/19 History Ferrous Sulfate [Iron (65 MG 325 mg PO BID 05/31/19 10/19/19 History Elemental)] Ibuprofen [Motrin Ib] 600 mg PO Q6H PRN 10/19/19 10/19/19 History Pantoprazole [Protonix] 40 mg PO HS 10/19/19 10/19/19 History Vitamin B-12 [place] (Unk Dose) 8 spray SUBLINGUAL Q48H 10/19/19 10/19/19 History Allergies Allergy/AdvReac Type Severity Reaction Status Date / Time atomoxetine [From Strattera] AdvReac Nausea & Verified 10/19/19 13:50 Vomiting codeine AdvReac "PASSED Verified 10/19/19 13:50 OUT" hydrocodone [From Vicodin] AdvReac "PASSED Verified 10/19/19 13:50 OUT" Physical Exam Vitals: Vital Signs Temp Pulse Resp BP Pulse Ox 10/19/19 13:47 99.3 F 86 16 132/89 10/19/19 13:17 98.6 F 77 16 132/65 100 10/19/19 13:07 99.4 F 75 16 137/73 100 10/19/19 13:00 99.4 F 83 16 132/76 100 10/19/19 11:17 20 10/19/19 10:56 98.3 F 90 17 156/69 100 Intake and Output 10/18/19 10/19/19 10/19/19 22:59 06:59 14:59 Intake Total 0 Balance 0 Intake: Blood Product 0 Rc As-1 Unit 0 [id number] Other: Weight 81.511 kg Constitutional: No acute distress, conversant, pleasant Eyes: pale, anicteric sclerae, moist conjunctiva, no lid-lag, PERRLA, ENMT: Oropharynx clear, no erythema, exudates Neck: Supple, FROM, no masses, or JVD, No carotid bruits, No thyromegaly Lungs: Clear to auscultation, Clear to percussion, Normal respiratory effort, no accessory muscle use Cardiovascular: Heart regular in rate and rhythm, No murmurs, gallops, or rubs, No peripheral edema Abdominal: Soft, Nontender, no guarding, rebound or rigidity, Normoactive bowel sounds, No hepatomegaly, No splenomegaly, No palpable mass Skin: Normal temperature, tone, texture, turgor, no induration, No subcutaneous nodules, No rash, lesions, No ulcers Extremities: No digital cyanosis, No clubbing, Pedal pulses intact and symmetrical, Radial pulses intact and symmetrical, No calf tenderness Psychiatric: Alert and oriented to person, place and time, appropriate affect, intact judgement Neuro: Muscles Strength 5/5 in all 4 extremities, Sensation to light touch grossly present throughout, Cranial nerves II-XII grossly intact, no focal sensory deficits Results CBC & Chem 7: 10/19/19 11:10 10/19/19 11:10 Labs: Abnormal Lab Results - Last 24 Hours (Table) 10/19/19 10/19/19 10/19/19 Range/Units 11:10 11:10 11:10 RBC 3.67 L (3.80-5.40) m/uL Hgb 6.5 L* (11.4-16.0) gm/dL Hct 24.2 L (34.0-46.0) % MCV 65.7 L (80.0-100.0) fL MCH 17.8 L (25.0-35.0) pg MCHC 27.0 L (31.0-37.0) g/dL RDW 17.1 H (11.5-15.5) % Lymphocytes # (Manual) 0.74 L (1.0-4.8) k/uL APTT 21.4 L (22.0-30.0) sec Crossmatch See Detail Assessment and Plan Plan: Acute on chronic anemia, likely secondary to blood loss, upper GI source Patient already takes Protonix once a day, we'll increase to twice a day Continue iron supplements Consult GI IV fluids Transfuse 1 unit of packed red blood cells Monitor CBC Seasonal ALLERGIES ADHD Stable Resume meds Patient admitted more than 2 midnights, as inpatient
[2019-10-19] MEDS: Dextroamphetamine/Amphetamine [Adderall] PO SCH (15:26)
[2019-10-19] MEDS ORDERED: MAGNESIUM CITRATE 296 ML BOTTLE PO ONE (17:00)
[2019-10-19] MEDS: PANTOPRAZOLE 40 MG TABLET PO SCH (17:50)
[2019-10-19] MEDS: SODIUM CHLORIDE 0.9% 1,000 ML IV SCH (17:51)
[2019-10-19] MEDS: FERROUS SULFATE 325 MG TAB PO SCH (20:23)
--- NOTE | 2019-10-19 20:25 | P.CONS ---
History of Present Illness - Reason for Consult Consult date: 10/19/19 Acute on chronic blood loss anemia Requesting physician: Ami Evans - Chief Complaint needs iron - History of Present Illness Ms Zuluaga is a 49 yr old white female, initially seen in consult at [facility] in 03/25. She had presented with progressive shortness of breath, lightheadedness and several fainting episodes with symptoms starting about 7-10 days ago. The lightheadedness and syncopal episodes with exertion or started about 2-3 days prior. About 2 months prior to that she had had complains of hot flashes, fatigue, and difficulty in concentration. In the emergency room she was found to have a hemoglobin in the 2 range with MCV in the 55 range. She was transfused with appropriate increase in hemoglobin. Labs confirmed severe iron deficiency. She had a CT of the chest abdomen and pelvis, with finding of a soft tissue density in the pelvis with had density material centrally. This was felt to possibly reflect hemorrhage in the remnant vaginal cuff. There was also a cystic lesion in the left adnexa presumed to be the left ovary. The patient had had a hysterectomy in 2001, and right-sided salpingo- oophorectomy in 2015 She received IV iron in the hospital. She had an EGD and colonoscopy, with EGD revealing hiatal hernia with mild erosions and biopsy positive for mild gastritis. She was discharged on ferrous sulfate 325 mg 3 times a day. The patient did not follow-up with hematology as scheduled. She states that she did not have insurance for several months. She continued oral iron, but an over the counter preparation, and twice a day dosing, as she was having severe constipation with the 3 times a day dosing. She was not aware of the dose strength. She was seen by her PCP in 02/23 to get clearance for left THR. His labs showed hemoglobin of 7.6, white count 7.5, MCV 69.7 and platelets 445. She was therefore referred again to hematology and seen for her first office visit on 03/20/19. She had continued to use ibuprofen 800 mg, up to 2-3 times a day since about 12/24, and about 1-2 per day prior to that. Labs showed severe iron deficiency. She received IV iron and was also started on PO iron BID. Patient has not been seen in office for her recommended close follow-up of her CBC and Iron infusions since before hip surgery in May. She states she is taking her PO iron. Hemoglobin on admission 6.5 Review of Systems A 14 point review of systems assessed and completed and negative except hpi Past Medical History Past Medical History: Asthma Additional Past Medical History / Comment(s): falls, still has lt ovary. pne vaccine-not sure of date, chronic anemia History of Any Multi-Drug Resistant Organisms: None Reported Past Surgical History: Hysterectomy, Orthopedic Surgery, Tubal Ligation Additional Past Surgical History / Comment(s): rt fallopian tube and ovary removed, uterus removed still has lt ovary but did have cyst removed off that one, left hip replacement Past Anesthesia/Blood Transfusion Reactions: No Reported Reaction Additional Past Anesthesia/Blood Transfusion Reaction / Comm: adopted Past Psychological History: No Psychological Hx Reported Smoking Status: Never smoker Past Alcohol Use History: Occasional Past Drug Use History: None Reported - Past Family History Mother Family Medical History: Unable to Obtain Additional Family Medical History / Comment(s): pt was adopted Medications and Allergies Home Medications Medication Instructions Recorded Confirmed Type Dextroamphetamine/Amphetamine 20 mg PO BID@0630,1530 06/27/15 10/19/19 History [Adderall] Albuterol Sulfate [Proair Hfa] 2 puff INHALATION RT-Q6H PRN 05/31/19 10/19/19 History Cetirizine HCl [Zyrtec] 10 mg PO DAILY PRN 05/31/19 10/19/19 History Ferrous Sulfate [Iron (65 MG 325 mg PO BID 05/31/19 10/19/19 History Elemental)] Ibuprofen [Motrin Ib] 600 mg PO Q6H PRN 10/19/19 10/19/19 History Pantoprazole [Protonix] 40 mg PO HS 10/19/19 10/19/19 History Vitamin B-12 [place] (Unk Dose) 8 spray SUBLINGUAL Q48H 10/19/19 10/19/19 History Allergies Allergy/AdvReac Type Severity Reaction Status Date / Time atomoxetine [From Strattera] AdvReac Nausea & Verified 10/19/19 13:50 Vomiting codeine AdvReac "PASSED Verified 10/19/19 13:50 OUT" hydrocodone [From Vicodin] AdvReac "PASSED Verified 10/19/19 13:50 OUT" Physical Exam Vitals: Vital Signs Temp Pulse Pulse Resp BP BP Pulse Ox 10/19/19 18:48 99.0 F 93 20 144/75 97 10/19/19 16:47 84 10/19/19 16:00 20 10/19/19 15:42 98.2 F 76 20 129/77 98 10/19/19 15:04 98.7 F 84 18 133/83 98 10/19/19 13:47 99.3 F 86 16 132/89 10/19/19 13:17 98.6 F 77 16 132/65 100 10/19/19 13:07 99.4 F 75 16 137/73 100 10/19/19 13:00 99.4 F 83 16 132/76 100 10/19/19 11:17 20 10/19/19 10:56 98.3 F 90 17 156/69 100 Intake and Output 10/19/19 10/19/19 10/19/19 06:59 14:59 22:59 Intake Total 0 310 Balance 0 310 Intake: Blood Product 0 310 Rc As-1 Unit 0 310 [id number] Other: # Voids 1 Weight 81.511 kg - Constitutional General appearance: no acute distress - EENT Eyes: EOMI, PERRLA ENT: hearing grossly normal, normal oropharynx - Neck Neck: no lymphadenopathy Thyroid: bilateral: normal size - Respiratory Respiratory: bilateral: CTA - Cardiovascular Rhythm: regular Heart sounds: normal: S1, S2 - Gastrointestinal General gastrointestinal: normal bowel sounds, soft - Integumentary Integumentary: normal - Neurologic Neurologic: CNII-XII intact - Musculoskeletal Musculoskeletal: generalized weakness, left sided weakness (at left hip) - Psychiatric Psychiatric: A&O x's 3, appropriate affect Results CBC & Chem 7: 10/19/19 11:10 10/19/19 11:10 Labs: Abnormal Lab Results - Last 24 Hours (Table) 10/19/19 10/19/19 10/19/19 Range/Units 11:10 11:10 11:10 RBC 3.67 L (3.80-5.40) m/uL Hgb 6.5 L* (11.4-16.0) gm/dL Hct 24.2 L (34.0-46.0) % MCV 65.7 L (80.0-100.0) fL MCH 17.8 L (25.0-35.0) pg MCHC 27.0 L (31.0-37.0) g/dL RDW 17.1 H (11.5-15.5) % Lymphocytes # (Manual) 0.74 L (1.0-4.8) k/uL APTT 21.4 L (22.0-30.0) sec Crossmatch See Detail Assessment and Plan Plan: Assessment and Plan (1) Anemia This is been an ongoing issue for the patient, as noted in the HPI. The source of bleed appears to be either the upper GI, and/or small bowel AVMs. This is likely exacerbated by her ongoing NSAID use. The patient has responded well to IV and oral iron with increase in hemoglobin in the past, although she must remain compliant with close and frequent follow- ups. - Transfuse hemoglobin less than 7 - CBC daily - Additional IV iron will be ordered. - Continue by mouth iron - Discussed abstaining from NSAIDS Physician Attestation: I have completed the full history and physical and agree with above dictation, dictated as a scribe
[2019-10-19 20:51] LABS: Anisocytosis Slight; HCT 24.8 % (34.0-46.0); Hypochromasia Marked; MCH 19.5 pg (25.0-35.0); MCHC 28.1 g/dL (31.0-37.0); MCV 69.5 fL (80.0-100.0); Mean Platelet Volume 9.1; Microcytosis Marked; Platelet Count 425 k/uL (150-450); Poikilocytosis Marked; RBC 3.57 m/uL (3.80-5.40); RDW 19.3 % (11.5-15.5)
[2019-10-19] MEDS: SODIUM FERRIC GLUCONAT-SUCROSE 125 MG in SODIUM CHLORIDE 0.9% 100 ML IVPB SCH (20:56)
[2019-10-19] MEDS: HYDROcodone/APAP 5-325MG 1 EACH TAB PO PRN (21:53)
[2019-10-19 22:02] LABS: Anisocytosis (M) Present; Eosinophils # (M) 0.45 k/uL (0-0.7); Hypochromasia (M) Present; Monocytes # (M) 0.25 k/uL (0-1.0); Neutrophils % (M) 60 %; Nucleated Red Blood Cells 0 /100 WBC (0-0); Ovalocytes Present; Poikilocytosis (M) Present; Polychromasia Present; Tear Drop Cells Present; Total Cells Counted 100
--- NOTE | 2019-10-19 22:49 | CONS ---
CONSULTATION DATE OF SERVICE: 10/19/2019 REQUESTING PHYSICIAN: Dr. Mayuri Guzman REASON FOR CONSULTATION: Severe symptomatic anemia. HISTORY OF PRESENT ILLNESS: The patient is a 49-year-old pleasant white female with a prior history of iron deficiency anemia for which he was admitted to the hospital in May of 2018 and underwent EGD/colonoscopy by Dr. Arias that showed multisessile with erosions and mild gastritis as well as diverticulosis. She was treated with iron supplements and hemoglobin improved. Six months ago, she was scheduled for hip surgery. At which time she was once again noted to have anemia with a hemoglobin of 7 and was seen by Dr[address] Eugene and received iron infusions. The hemoglobin improved to 12 g/dL. Now she presents to the hospital with low hemoglobin at 6.5 g/dL. She denies any GI symptoms. She reports no nausea, vomiting. No rectal bleeding or melena. She remains on PPI as well as iron supplements twice daily. She also has been taking occasional Motrin for chronic hip pain. PAST MEDICAL HISTORY: Significant for asthma, degenerative joint disease. PAST SURGICAL HISTORY: Hysterectomy, tubal ligation, left hip replacement. MEDICATIONS: At home include Advair, Pro-Air, Zyrtec, iron, Motrin, Protonix. ALLERGIES: VICODIN AND CODEINE. SOCIAL HISTORY: No smoking. No alcohol use. FAMILY HISTORY: The patient is adopted. REVIEW OF SYSTEMS: CARDIOPULMONARY: No chest pain or shortness of breath. Genitourinary: No dysuria or hematuria. MUSCULOSKELETAL: Unremarkable. SKIN: Unremarkable. ENDOCRINE: Unremarkable. PSYCHIATRIC: Unremarkable. NEUROLOGY unremarkable. ENT/vision unremarkable. CONSTITUTIONAL: No recent weight loss. No fever, chills, night sweats. PHYSICAL EXAMINATION: Blood pressure is 129/77, pulse rate 76, temperature 98.2 HEENT examination unremarkable. Conjunctivae pink. Sclerae anicteric. Oral cavity no lesions. NECK: No JVD or lymph node enlargement. CHEST: Clear to auscultation. HEART: Regular rate and rhythm. ABDOMEN: Soft. Bowel sounds are positive. No organomegaly. Extremities no pedal edema. SKIN: No rashes. NEUROLOGICAL: Alert and oriented times three. No focal deficits. LABS: Done at the time of admission to the hospital: WBC 4.6, hemoglobin 6.5, platelets 425. INR is within normal limits. Basic metabolic panel is within normal limits. Stool occult blood was negative. IMPRESSION: 1. Recurrent iron deficiency anemia with clinically no evidence of active bleeding. Most likely related to occult gastrointestinal blood loss. As mentioned earlier she had an EGD colonoscopy by Dr. Arias in May of 2018 that showed a moderate- sized hiatal hernia with multiple Michael erosions which appears to be the source of occult GI blood loss. Colonoscopy revealed diverticulosis at that time. At this point, possibility of a small bowel source of bleeding also needs to be excluded. RECOMMENDATIONS: 1. Agree with PRBC transfusion. 2. Repeat CBC in the morning. 3. We will proceed with a small bowel capsule endoscopy during this hospitalization. 4. Continue with Protonix 40 mg daily. 5. We will follow with you closely. Thank you for this consultation. DANAY / RADHA: [id number] /
[2019-10-20] MEDS: Dextroamphetamine/Amphetamine [Adderall] PO SCH ×2 (05:27→14:48)
[2019-10-20] MEDS: PANTOPRAZOLE 40 MG TABLET PO SCH ×2 (06:21→16:55)
[2019-10-20] MEDS: SODIUM CHLORIDE 0.9% 1,000 ML IV SCH ×3 (06:22→11:58)
[2019-10-20 09:13] LABS: Anisocytosis Slight; HCT 24.8 % (34.0-46.0); Hypochromasia Marked; MCH 19.4 pg (25.0-35.0); MCHC 27.7 g/dL (31.0-37.0); MCV 69.9 fL (80.0-100.0); Microcytosis Marked; Platelet Count 398 k/uL (150-450); Poikilocytosis Marked; RBC 3.54 m/uL (3.80-5.40); RDW 19.2 % (11.5-15.5); WBC 3.8 k/uL (3.8-10.6)
[2019-10-20 09:20] LABS: ALT 14 U/L (4-34); AST 27 U/L (14-36); African American GFR (CKD) >90 (>60 ml/min/1.73 sqM); Albumin 3.4 g/dL (3.5-5.0); Alkaline Phosphatase 83 U/L (38-126); Anion Gap 5 mmol/L; Blood Urea Nitrogen 5 mg/dL (7-17); Calcium 8.6 mg/dL (8.4-10.2); Carbon Dioxide 25 mmol/L (22-30); Chloride 107 mmol/L (98-107); Glucose 88 mg/dL (74-99); Magnesium 2.2 mg/dL (1.6-2.3); Non-African American GFR(CKD) >90 (>60 ml/min/1.73 sqM); Potassium 4.2 mmol/L (3.5-5.1); Sodium 137 mmol/L (137-145); Total Bilirubin 0.4 mg/dL (0.2-1.3); Total Protein 5.8 g/dL (6.3-8.2)
[2019-10-20 09:53] LABS: HGB 6.9 gm/dL (11.4-16.0)
--- NOTE | 2019-10-20 11:09 | PN ---
PROGRESS NOTE DATE OF SERVICE: October 20, 2019 Patient is a 49-year-old pleasant white female admitted to the hospital with severe symptomatic anemia and hemoglobin of 7 g/dL requiring a unit of blood transfusion. She is feeling better today. She is complaining of some headache. She is scheduled for a small bowel capsule endoscopy today. She denies any bleeding. No abdominal pain. No nausea, vomiting. PHYSICAL EXAMINATION: She appears comfortable. No apparent distress. VITAL SIGNS: Stable. Blood pressure 130/86, pulse rate 82 per minute and afebrile. HEENT examination unremarkable. Conjunctivae pink. Sclerae anicteric. Oral cavity no lesions. NECK: No JVD or lymph node enlargement. CHEST: The chest was clear to auscultation. HEART: Regular rate and rhythm. ABDOMEN: Soft. Bowel sounds are positive. No organomegaly. EXTREMITIES: No pedal edema. SKIN no rashes. NEUROLOGIC: Alert and oriented x3. No focal deficits. LABS: Done today WBC is 5, hemoglobin 7, platelets 425. So far, received one unit of blood transfusion. IMPRESSION: Severe symptomatic microcytic hypochromic anemia consistent with iron deficiency secondary to occult gastrointestinal blood loss. EGD and colonoscopy in May of [address] Arias showed a hiatal hernia and Michael erosions which appears to be the source of occult blood loss. However, small bowel source of pathology needs to be excluded. RECOMMENDATION: She is scheduled for a small bowel capsule endoscopy today. In the meantime, she will be on a clear liquid diet and we will continue to follow with you closely. Thank you for this consultation. MMODL / IJN: [id number] /
[2019-10-20] MEDS: FERROUS SULFATE 325 MG TAB PO SCH ×2 (11:30→20:23)
[2019-10-20] MEDS: SODIUM FERRIC GLUCONAT-SUCROSE 125 MG in SODIUM CHLORIDE 0.9% 100 ML IVPB SCH (11:56)
[2019-10-20] MEDS: HYDROcodone/APAP 5-325MG 1 EACH TAB PO PRN ×2 (11:57→20:34)
--- NOTE | 2019-10-20 14:37 | P.PN ---
Subjective Progress Note Date: 10/20/19 Patient seen and examined at bedside nothing by mouth this morning, after having swallowed her capsule endoscopy. Hemoglobin was 6.9 this morning transfuse 1 more unit of packed RBCs Objective - Vital Signs Vital signs: Vital Signs Temp 97.9 F 10/20/19 11:44 Pulse 71 10/20/19 11:44 Resp 18 10/20/19 11:44 BP 108/57 10/20/19 11:44 Pulse Ox 98 10/20/19 11:44 Intake & Output 10/19/19 10/20/19 10/20/19 18:59 06:59 18:59 Intake Total 310 1890 Balance 310 1890 Weight 81.511 kg Intake: Intake, IV Titration 1100 Amount Sodium Chloride 0.9% 1, 1000 000 ml @ 100 mls/hr IV . Q10H GIANLUCA Rx#:[id number] Sodium Ferric Gluconat- 100 Sucrose 125 mg In Sodium Chloride 0.9% 100 ml @ 100 mls/hr IVPB DAILY GIANLUCA Rx#:[id number] Oral 790 Blood Product 310 Rc As-1 Unit 310 [id number] Other: # Voids 1 2 # Bowel Movements 2 - Exam Constitutional: No acute distress, conversant, pleasant Eyes: pale, anicteric sclerae, moist conjunctiva, no lid-lag, PERRLA, ENMT: Oropharynx clear, no erythema, exudates Neck: Supple, FROM, no masses, or JVD, No carotid bruits, No thyromegaly Lungs: Clear to auscultation, Clear to percussion, Normal respiratory effort, no accessory muscle use Cardiovascular: Heart regular in rate and rhythm, No murmurs, gallops, or rubs, No peripheral edema Abdominal: Soft, Nontender, no guarding, rebound or rigidity, Normoactive bowel sounds, No hepatomegaly, No splenomegaly, No palpable mass Skin: Normal temperature, tone, texture, turgor, no induration, No subcutaneous nodules, No rash, lesions, No ulcers Extremities: No digital cyanosis, No clubbing, Pedal pulses intact and symmetrical, Radial pulses intact and symmetrical, No calf tenderness Psychiatric: Alert and oriented to person, place and time, appropriate affect, intact judgement Neuro: Muscles Strength 5/5 in all 4 extremities, Sensation to light touch grossly present throughout, Cranial nerves II-XII grossly intact, no focal sensory deficits - Labs CBC & Chem 7: 10/20/19 08:25 10/20/19 08:25 Labs: Abnormal Lab Results - Last 24 Hours (Table) 10/19/19 10/19/19 10/20/19 Range/Units 11:10 20:34 08:25 RBC 3.57 L (3.80-5.40) m/uL Hgb 7.0 L (11.4-16.0) gm/dL Hct 24.8 L (34.0-46.0) % MCV 69.5 L (80.0-100.0) fL MCH 19.5 L (25.0-35.0) pg MCHC 28.1 L (31.0-37.0) g/dL RDW 19.3 H (11.5-15.5) % BUN 5 L (7-17) mg/dL Total Protein 5.8 L (6.3-8.2) g/dL Albumin 3.4 L (3.5-5.0) g/dL Crossmatch See Detail 10/20/19 Range/Units 08:25 RBC 3.54 L (3.80-5.40) m/uL Hgb 6.9 L* (11.4-16.0) gm/dL Hct 24.8 L (34.0-46.0) % MCV 69.9 L (80.0-100.0) fL MCH 19.4 L (25.0-35.0) pg MCHC 27.7 L (31.0-37.0) g/dL RDW 19.2 H (11.5-15.5) % BUN (7-17) mg/dL Total Protein (6.3-8.2) g/dL Albumin (3.5-5.0) g/dL Crossmatch Assessment and Plan Assessment: Acute blood loss anemia on chronic iron deficiency anemia * The patient symptomatic with hemoglobin of 6.9 second unit of packed RBCs will be transfused today * Appreciate GI recommendations patient to have pill endoscopy continue iron infusions and oral iron supplementation Suspected bleeding AVM * given history of upper GI and small bowel AVMs * GI following Disposition * Continue current treatment plan follow-up any recommendations from GI * Continue monitor CBC
[2019-10-21] MEDS: Dextroamphetamine/Amphetamine [Adderall] PO SCH (06:57)
[2019-10-21 07:34] LABS: Anisocytosis Slight; HCT 28.6 % (34.0-46.0); HGB 8.1 gm/dL (11.4-16.0); Hypochromasia Marked; MCH 20.6 pg (25.0-35.0); MCHC 28.4 g/dL (31.0-37.0); MCV 72.6 fL (80.0-100.0); Mean Platelet Volume 9.5; Microcytosis Marked; Platelet Count 356 k/uL (150-450); Poikilocytosis Marked; RBC 3.93 m/uL (3.80-5.40); RDW 19.9 % (11.5-15.5); WBC 5.4 k/uL (3.8-10.6)
[2019-10-21] MEDS: SODIUM FERRIC GLUCONAT-SUCROSE 125 MG in SODIUM CHLORIDE 0.9% 100 ML IVPB SCH (08:25)
[2019-10-21] MEDS: SODIUM CHLORIDE 0.9% 1,000 ML IV SCH (08:25)
[2019-10-21] MEDS: FERROUS SULFATE 325 MG TAB PO SCH (08:26)
[2019-10-21] MEDS: PANTOPRAZOLE 40 MG TABLET PO SCH (08:26)
[2019-10-21 09:00] LABS: Eosinophils # (M) 0.38 k/uL (0-0.7); Large Platelets Present; Lymphocytes # (M) 1.13 k/uL (1.0-4.8); Monocytes # (M) 0.43 k/uL (0-1.0); Neutrophils # (M) 3.56 k/uL (1.3-7.7); Neutrophils % (M) 66 %; Nucleated Red Blood Cells 0 /100 WBC (0-0); Polychromasia Present; Total Cells Counted 200
[2019-10-21 09:02] VITALS: BP 124/73; PULSE 80; RESP 16; TEMP 98.1
[2019-10-21 09:07] LABS: Tear Drop Cells Present
--- NOTE | 2019-10-21 11:03 | PN ---
PROGRESS NOTE DATE OF SERVICE: October 21, 2019 Patient is a 49-year-old pleasant white female admitted to the hospital with severe symptomatic anemia and hemoccult positive stool. Small bowel capsule endoscopy was done yesterday which was unremarkable. The patient denies any symptoms. She received a total of 2 units of PRBC transfusion. Last hemoglobin is 8.1 g/dL. She denies any symptoms. PHYSICAL EXAMINATION: Appears comfortable. No apparent distress. VITAL SIGNS: Stable. Blood pressure 124/73, pulse of 80, temperature 98.1. HEENT: Examination is unremarkable. Conjunctivae pink. Sclerae anicteric. Oral cavity no lesions. NECK: No JVD or lymph node enlargement. CHEST: Clear to auscultation. HEART: Regular rate and rhythm. ABDOMEN: Soft. Bowel sounds are positive. No organomegaly. EXTREMITIES: No pedal edema. SKIN: No rashes. NEUROLOGIC: Alert and oriented x3. No focal deficits. LABS: From today, WBC 5.4, hemoglobin 8.1, platelets 356. Basic metabolic panel is within normal limits. IMPRESSION: Severe symptomatic microcytic hypochromic anemia consistent with iron deficiency anemia. Clinically, no evidence of active GI bleeding. EGD/colonoscopy by Dr. Arias in May of 2018 revealed a hiatal hernia with Michael erosions. A small bowel capsule endoscopy done yesterday showed completely normal small bowel mucosa with no evidence of angiectasia or active bleeding seen. She is status post two units of PRBC transfusion, doing better, last hemoglobin was 8.1. RECOMMENDATIONS: 1. Continue with IV infusions. 2. Iron supplements daily. 3. She can be discharged home. As an outpatient, follow with Dr. Arias in 3-4 weeks. Thank you for this consultation. MMODL / IJN: [id number] /
--- NOTE | 2019-10-31 16:29 | P.DS ---
Providers Date of admission: 10/19/19 14:37 Expected date of discharge: 10/21/19 Attending physician: Park Pritchett MD Consults: 10/19/19 14:39 Consult Physician Routine Consulting Provider: Cindy Camilo Consult Reason/Comments: bleed Do you want consulting provider notified?: Yes 10/19/19 16:18 Consult Physician Routine Consulting Provider: Hubert Eugene Consult Reason/Comments: anemia, known to patient Do you want consulting provider notified?: Yes Primary care physician: Mayuri Guzman Hospital Course: Discharge diagnosis Acute blood loss anemia/microcytic anemia Chronic iron deficiency anemia suspected bleeding AVM Hospital course Patient is a 49-year-old female is admitted for symptomatic hypochromic microcytic iron deficiency anemia suspected to acute blood loss superimposed on chronic iron deficiency after presenting with a hemoglobin of 6.5 she was typed and crossed and transfused 2 units of packed RBCs bringing her hemoglobin up to 8.1. GI was consulted capsule endoscopy was performed that showed no evidence of AVMs ectasias or any active bleeding. Hemoglobin remained stable and she was discharged with plans a follow-up with GI clinic. This discharge process took approximately 30 minutes Focused exam GI : Nonacute abdomen, normoactive bowel sounds Patient Condition at Discharge: Good Plan - Discharge Summary Discharge Rx Participant: Yes New Discharge Prescriptions: Continue Dextroamphetamine/Amphetamine [Adderall] 20 mg PO BID@0630,1530 Ferrous Sulfate [Iron (65 MG Elemental)] 325 mg PO BID Albuterol Sulfate [Proair Hfa] 2 puff INHALATION RT-Q6H PRN PRN Reason: Shortness Of Breath Cetirizine HCl [Zyrtec] 10 mg PO DAILY PRN PRN Reason: Allergy Symptoms Pantoprazole [Protonix] 40 mg PO HS Vitamin B-12 [place] (Unk Dose) 8 spray SUBLINGUAL Q48H Discontinued Ibuprofen [Motrin Ib] 600 mg PO Q6H PRN PRN Reason: Pain Discharge Medication List Dextroamphetamine/Amphetamine [Adderall] 20 mg PO BID@0630,1530 06/27/15 [History] Albuterol Sulfate [Proair Hfa] 2 puff INHALATION RT-Q6H PRN 05/31/19 [History] Cetirizine HCl [Zyrtec] 10 mg PO DAILY PRN 05/31/19 [History] Ferrous Sulfate [Iron (65 MG Elemental)] 325 mg PO BID 05/31/19 [History] Pantoprazole [Protonix] 40 mg PO HS 10/19/19 [History] Vitamin B-12 [place] (Unk Dose) 8 spray SUBLINGUAL Q48H 10/19/19 [History] Follow up Appointment(s)/Referral(s): Mayuri Guzman MD [Primary Care Provider] - 1 Week Saeid Arias MD [STAFF PHYSICIAN] - 2 Weeks Patient Instructions/Handouts: Anemia (DC) Activity/Diet/Wound Care/Special Instructions: PLEASE REFER TO YOUR DISCHARGE CAPSULE ENDOSCOPY INSTRUCTION FORM GIVEN. ANY WORSENING OR CONCERNING SYMPTOMS PLEASE RETURN TO THE ER OR NOTIFY YOUR DR. Discharge Disposition: HOME SELF-CARE
== END 2019-10-21 10:55 | disposition home or self-care (01) ==
LOC: EC 10:43 → 6PED 13:18 → OBSVTOIN 14:37 → INTOOBSV 14:37 → UNDODISIN 10-21 10:55
PROVIDERS: ADMIT Internal Medicine; ATTEND Internal Medicine
PROC: 30233N1 Transfusion of Nonautologous Red Blood Cells into Peripheral Vein, Percutaneous Approach (ICD-10-PCS; principal; 2019-10-19)
DX: D62 Acute posthemorrhagic anemia (principal); D50.9 Iron deficiency anemia, unspecified; F90.9 Attention-deficit hyperactivity disorder, unspecified type; J45.909 Unspecified asthma, uncomplicated; K44.9 Diaphragmatic hernia without obstruction or gangrene; K57.90 Diverticulosis of intestine, part unspecified, without perforation or abscess without bleeding; G89.29 Other chronic pain; M25.559 Pain in unspecified hip; M19.90 Unspecified osteoarthritis, unspecified site; Z79.82 Long term (current) use of aspirin; Z79.1 Long term (current) use of non-steroidal anti-inflammatories (NSAID); Z79.899 Other long term (current) drug therapy; Z88.5 Allergy status to narcotic agent; Z88.8 Allergy status to other drugs, medicaments and biological substances; Z90.721 Acquired absence of ovaries, unilateral; Z90.79 Acquired absence of other genital organ(s); Z87.11 Personal history of peptic ulcer disease; Z87.19 Personal history of other diseases of the digestive system; Z96.642 Presence of left artificial hip joint; Z90.710 Acquired absence of both cervix and uterus
CPT/HCPCS: 36430 ×2; 96361 ×2; 96365; 96366 ×2; 99285; 36415; 94640; 86900; 86901; 80053 ×2; 83735; 84100; 85025 ×2; 85027; 85610; 85730; 86850; 86920; 82272; 91110; G0378 ×3; P9016 ×2; J2916 ×3

== ENCOUNTER 2022-06-24 12:00 | Emergency (ER) | payer OTHER ==
[2022-06-24 12:38] VITALS: BP 141/75; PULSE 104; RESP 18; TEMP 98.7
--- NOTE | 2022-06-24 12:51 | ED ---
Upper Extremity HPI - General Chief Complaint: Extremity Injury, Upper Stated Complaint: Fall, collarbone injury Time Seen by Provider: 06/24/22 12:20 Source: patient, RN notes reviewed Mode of arrival: ambulatory - History of Present Illness Initial Comments: Patient s a 52 year old female presenting to the ER with a chief complaint of left shoulder/clavicle pain. Patient reports slipping on ice while getting out of her truck this morning. She tried to grab the bar on her truck to prevent the fall and experienced pain in her left shoulder as she fall. Denies LOC. Denies paresthesias. Full ROM of fingers, wrist, and elbow. Patient reports pain with any movement of her shoulder. She has not taken anything for the pain and would not like any at this time. She broke her left shoulder about 15 years ago and it was repaired. - Related Data Home Medications Medication Instructions Recorded Confirmed Dextroamphetamine/Amphetamine 20 mg PO BID@0630,1530 06/27/15 10/19/19 [Adderall] Albuterol Sulfate [Proair Hfa] 2 puff INHALATION RT-Q6H PRN 05/31/19 10/19/19 Cetirizine HCl [Zyrtec] 10 mg PO DAILY PRN 05/31/19 10/19/19 Ferrous Sulfate [Iron (65 MG 325 mg PO BID 05/31/19 10/19/19 Elemental)] Pantoprazole [Protonix] 40 mg PO HS 10/19/19 10/19/19 Vitamin B-12 [place] (Unk Dose) 8 spray SUBLINGUAL Q48H 10/19/19 10/19/19 Allergies Allergy/AdvReac Type Severity Reaction Status Date / Time atomoxetine [From Strattera] AdvReac Nausea & Verified 06/24/22 12:38 Vomiting codeine AdvReac "PASSED Verified 06/24/22 12:38 OUT" hydrocodone [From Vicodin] AdvReac "PASSED Verified 06/24/22 12:38 OUT" Review of Systems ROS Statement: Those systems with pertinent positive or pertinent negative responses have been documented in the HPI. ROS Other: All systems not noted in ROS Statement are negative. Past Medical History Past Medical History: Asthma Additional Past Medical History / Comment(s): falls, still has lt ovary. pne vaccine-not sure of date, chronic anemia History of Any Multi-Drug Resistant Organisms: None Reported Past Surgical History: Hysterectomy, Orthopedic Surgery, Tubal Ligation Additional Past Surgical History / Comment(s): rt fallopian tube and ovary removed, uterus removed still has lt ovary but did have cyst removed off that one, left hip replacement Past Anesthesia/Blood Transfusion Reactions: No Reported Reaction Additional Past Anesthesia/Blood Transfusion Reaction / Comment(s): adopted Past Psychological History: No Psychological Hx Reported Smoking Status: Never smoker Past Alcohol Use History: Occasional Past Drug Use History: None Reported - Past Family History Mother Family Medical History: Unable to Obtain Additional Family Medical History / Comment(s): pt was adopted General Exam Limitations: no limitations General appearance: alert, in no apparent distress Head exam: Present: atraumatic, normocephalic, normal inspection Eye exam: Present: normal appearance, PERRL, EOMI. Absent: scleral icterus, conjunctival injection, periorbital swelling ENT exam: Present: normal exam, mucous membranes moist Neck exam: Present: normal inspection. Absent: tenderness, meningismus, lymphadenopathy Respiratory exam: Present: normal lung sounds bilaterally. Absent: respiratory distress, wheezes, rales, rhonchi, stridor Cardiovascular Exam: Present: regular rate, normal rhythm, normal heart sounds. Absent: systolic murmur, diastolic murmur, rubs, gallop, clicks Extremities exam: Present: other (left clavicle more pronouced, limited passive ROM of left shoulder ) Back exam: Present: normal inspection Neurological exam: Present: alert, oriented X3, CN II-XII intact Psychiatric exam: Present: normal affect, normal mood Skin exam: Present: warm, dry, intact, normal color. Absent: rash Course Vital Signs 06/24/22 12:34 Temperature 98.7 F Pulse Rate 104 H Respiratory 18 Rate Blood Pressure 141/75 O2 Sat by Pulse 98 Oximetry Medical Decision Making - Medical Decision Making X-ray was read of the left clavicle and left shoulder shows possible nondisplaced fracture growth point tenderness. Patient has tenderness over the midclavicle and consistent with probable nondisplaced fracture. Patient was placed a sling follow-up with orthopedics return parameters were discussed. Patient was offered pain medication upon arrival patient declined. Disposition Clinical Impression: Nondisplaced fracture of shaft of left clavicle Disposition: HOME SELF-CARE Condition: Stable Instructions (If sedation given, give patient instructions): Clavicle Fracture (ED) Additional Instructions: Please return to the Emergency Department if symptoms worsen or any other concerns. Is patient prescribed a controlled substance at d/c from ED?: No Referrals: None,Stated [Primary Care Provider] - 1-2 days Fan Mayers DO [Doctor of Osteopathic Medicine] - 1-2 days Time of Disposition: 13:13
--- NOTE | 2022-06-24 13:08 | XR ---
EXAMINATION TYPE: XR shoulder complete 3 views LT, XR clavicle 2 views LT DATE OF EXAM: 06/24/2022 Comparison: None Clinical History: 52-year-old female trauma and pain after fall. Findings: Shoulder: Previous lateral plate and screw fixation of the humeral head and proximal shaft. The sideplate exten ding above the margin of the greater tuberosity and may contribute to some impingement during shoulde r abduction. There is at least moderate degenerative change with joint space narrowing and marginal s purring at the glenohumeral joint. AC joint appears congruent and intact. No acute fracture, subluxat ion, dislocation seen. Left clavicle: Very subtle cortical lucency along the superior margin of the midclavicular shaft. Otherwise, no acut e fracture, subluxation, dislocation. Impression: 1. Left shoulder: Previous plate and screw fixation proximal humerus which appears uncomplicated. The re is underlying moderate glenohumeral joint OA. No acute osseous abnormality seen. 2. Left clavicle: No displaced fracture. There is very subtle cortical lucency along the superior mar gin of the midclavicular shaft, suspected nutrient foramen rather than subtle nondisplaced cortical f racture. Correlate for any point tenderness here. A follow-up in 10-14 days can be considered.
[2022-06-24] MEDS ORDERED: traMADol 50 MG STARTER PACK 3 TAB BTL PO STA (13:18)
[2022-06-24] MEDS ORDERED: HYDROmorphone 1 MG/ML 1 ML SYRINGE IM STA (13:18)
== END 2022-06-24 13:23 | disposition home or self-care (01) ==
LOC: EC 12:00
DX: S42.025A Nondisplaced fracture of shaft of left clavicle, initial encounter for closed fracture (principal); J45.909 Unspecified asthma, uncomplicated; Z79.51 Long term (current) use of inhaled steroids; Z88.5 Allergy status to narcotic agent; W00.0XXA Fall on same level due to ice and snow, initial encounter
CPT/HCPCS: 73030; 73000; 99284; 96372; J1170

== ENCOUNTER → 2023-06-21 | Outpatient (CLI) | payer MEDICAID ==
[2023-06-21 15:29] LABS: HGB 14.4 g/dL (12.0-15.0); MCH 30.2 pg (27.0-32.0); MCHC 32.7 g/dL (32.0-37.0); MCV 92.2 FL (80.0-97.0); Mean Platelet Volume 11.4 FL (9.5-12.2); NRBC Per 100 WBC 0 X 10*3/uL (0.00-0.01); Platelet Count 263 X 10*3/uL (140-440); RBC 4.77 X 10*6/uL (4.10-5.20); RDW 12.2 % (11.5-14.5); WBC 7.47 X 10*3/uL (4.50-10.00)
[2023-06-21 16:14] LABS: % Iron Saturation 19.85 (12.00-45.00); Ferritin 18.2 ng/mL (10.0-291.0)
[2023-06-21 16:54] LABS: Basophils # (A) 0.07 X 10*3/uL (0.00-0.10); Basophils % (A) 0.9 %; Eosinophils # (A) 0.27 X 10*3/uL (0.04-0.35); Eosinophils % (A) 3.6 %; Lymphocytes # (A) 1.63 X 10*3/uL (0.90-5.00); Lymphocytes % (A) 21.8 %; Monocytes # (A) 0.34 X 10*3/uL (0.20-1.00); Monocytes % (A) 4.6 %; Neutrophils # (A) 5.15 X 10*3/uL (1.80-7.70)
== END | disposition home or self-care (01) ==
LOC: LABWHC1 09:52
PROVIDERS: ATTEND Family Medicine
DX: D64.9 Anemia, unspecified (principal)
CPT/HCPCS: 36415; 82728; 83540; 83550; 85025

== ENCOUNTER 2023-08-19 05:52 | Emergency (ER) | payer MEDICAID ==
[2023-08-19 06:04] VITALS: BP 146/78; PULSE 90; RESP 18; TEMP 98.4
[2023-08-19] MEDS ORDERED: KETOROLAC 15 MG/ML 1 ML VIAL IM STA (06:13)
[2023-08-19] MEDS ORDERED: IBUPROFEN 600 MG STARTER PACK 4 TAB BTL PO STA (06:14)
--- NOTE | 2023-08-19 06:20 | ED ---
Upper Extremity HPI - General Chief Complaint: Extremity Injury, Upper Stated Complaint: Left wrist injury Time Seen by Provider: 08/19/23 06:00 Source: patient, RN notes reviewed Mode of arrival: ambulatory Limitations: no limitations - History of Present Illness Initial Comments: This is a 53 year old female who presents to the emergency department for a left wrist injury. Last night she tripped on broken tile and fell into the stair railing. When she fell she tried to brace herself with her hands, and has since had pain to the left wrist. Denies hitting her head or sustaining any other injuries. States that the wrist seems to be swelling and she is having difficulty moving the wrist and closing her hand. She took Ibuprofen and applied ice and heat last night with no relief. MD Complaint: Injury to:: left, wrist - Related Data Home Medications Medication Instructions Recorded Confirmed Dextroamphetamine/Amphetamine 20 mg PO BID@0630,1530 06/27/15 08/06/22 [Adderall] Cetirizine HCl [Zyrtec] 10 mg PO DAILY PRN 05/31/19 08/06/22 Ferrous Sulfate [Iron (65 MG 325 mg PO DAILY 05/31/19 08/06/22 Elemental)] Pantoprazole [Protonix] 40 mg PO HS 10/19/19 08/06/22 Vitamin B-12 [place] (Unk Dose) 8 spray SUBLINGUAL Q48H 10/19/19 08/06/22 Albuterol Inhaler [Ventolin Hfa 1 puff INHALATION QID 08/06/22 08/06/22 Inhaler] Previous Rx's Medication Instructions Recorded Ketorolac [Toradol] 10 mg PO Q6HR PRN #15 tab 08/19/23 Allergies Allergy/AdvReac Type Severity Reaction Status Date / Time atomoxetine [From Strattera] AdvReac Nausea & Verified 08/19/23 06:00 Vomiting codeine AdvReac "PASSED Verified 08/19/23 06:00 OUT" hydrocodone [From Vicodin] AdvReac "PASSED Verified 08/19/23 06:00 OUT" Review of Systems ROS Statement: Those systems with pertinent positive or pertinent negative responses have been documented in the HPI. ROS Other: All systems not noted in ROS Statement are negative. Past Medical History Past Medical History: Asthma Additional Past Medical History / Comment(s): falls, still has lt ovary. pne vaccine-not sure of date, chronic anemia History of Any Multi-Drug Resistant Organisms: None Reported Past Surgical History: Hysterectomy, Orthopedic Surgery, Tubal Ligation Additional Past Surgical History / Comment(s): rt fallopian tube and ovary removed, uterus removed still has lt ovary but did have cyst removed off that one, left hip replacement Past Anesthesia/Blood Transfusion Reactions: No Reported Reaction Additional Past Anesthesia/Blood Transfusion Reaction / Comment(s): adopted Past Psychological History: No Psychological Hx Reported Smoking Status: Never smoker Past Alcohol Use History: Occasional Past Drug Use History: None Reported - Past Family History Mother Family Medical History: Unable to Obtain Additional Family Medical History / Comment(s): pt was adopted General Exam Limitations: no limitations General appearance: alert, in no apparent distress Head exam: Present: atraumatic, normocephalic, normal inspection Respiratory exam: Present: normal lung sounds bilaterally. Absent: respiratory distress, wheezes, rales, rhonchi, stridor Cardiovascular Exam: Present: regular rate, normal rhythm, normal heart sounds. Absent: systolic murmur, diastolic murmur, rubs, gallop, clicks Extremities exam: Present: other (Tenderness and swelling to the dorsal aspect of the left wrist. 2+ radial pulses. Range of motion limited by pain.) Neurological exam: Present: alert, oriented X3, CN II-XII intact Psychiatric exam: Present: normal affect, normal mood Skin exam: Present: warm, dry, intact, normal color. Absent: rash Course Vital Signs 08/19/23 05:58 Temperature 98.4 F Pulse Rate 90 Respiratory 18 Rate Blood Pressure 146/78 O2 Sat by Pulse 96 Oximetry Medical Decision Making - Medical Decision Making This is a 53-year-old female who presents to the emergency department for a left wrist injury. Was pt. sent in by a medical professional or institution? @ -No Did you speak to anyone other than the patient for history? @ -No Did you review nursing and triage notes? @ -Yes, and I agree, it is accurate with regards to the patient's symptoms. Were old charts reviewed? @ -No Differential Diagnosis? @ -Differential Musculoskeletal: Muscular strain, contusion, ligament sprain, fracture, arthritis, septic arthritis, bursitis, cellulitis, muscle spasm, nerve compression, DVT, arterial occlusion, herpes zoster, electrolyte abnormality, tumor.... This is not meant to be in all inclusive list EKG interpreted by me (3pts min.)? @ -Not obtained X-rays interpreted by me (1pt min.)? @ -X-ray of the left wrist obtained. My interpretation identifies no acute fractures. CT interpreted by me (1pt min.)? @ -Not obtained U/S interpreted by me (1pt. min.)? @ -Not obtained What testing was considered but not performed? (CT, X-rays, U/S, labs)? Why? @ -None What meds were considered but not given? Why? @ -None Did you discuss the management of the patient with other professionals? @ -No Did you reconcile home meds? @ -No Was smoking cessation discussed for >3mins.? @ -No Was critical care preformed (if so, how long)? @ -No Were there social determinants of health that impacted care today? How? (Homelessness, low income, unemployed, alcoholism, drug addiction, transportation, low edu. Level, literacy, decrease access to med. care, usp, rehab)? @ -No Was there de-escalation of care discussed even if they declined? (Discuss DNR or withdrawal of care, Hospice)? @ -No What co-morbidities impacted this encounter? (DM, HTN, Smoking, COPD, CAD, Cancer, CVA, Hep., AIDS, mental health diagnosis, sleep apnea, morbid obesity)? @ -None Was patient admitted / discharged? @ -Discharged. X-ray of the left wrist obtained demonstrating no acute findings. Her wrist was bandaged with an VENECIA wrap and she was given a dose of Toradol in the emergency department. Rx for Toradol provided with dosing instructions reviewed. Also advised applying ice for 10-15 minutes every 2-3 hours for the first 2-3 days followed by heat thereafterwards. Patient discharged home in stable condition. Undiagnosed new problem with uncertain prognosis? @ -None Drug Therapy requiring intensive monitoring for toxicity (Heparin, Nitro, Insulin, Cardizem)? @ -None Were any procedures done? @ -None Diagnosis/symptom? @ -Left wrist sprain Acute, or Chronic, or Acute on Chronic? @ -Acute Uncomplicated (without systemic symptoms) or Complicated (systemic symptoms)? @ -Uncomplicated Side effects of treatment? @ -None Exacerbation, Progression, or Severe Exacerbation] @ -Not applicable Poses a threat to life or bodily function? @ -This may have some impact on her ability to use the left hand for the mean time. Return precautions reviewed in depth, the patient is instructed to return to the emergency department with any new, worsening, or concerning symptoms. Patient verbalized understanding. This case was discussed in detail with the attending ED physician, Dr. Cifuentes. Presentation, findings, and treatment plan discussed in detail as well. - Radiology Data Radiology results: report reviewed, image reviewed Disposition Clinical Impression: Left wrist sprain Disposition: HOME SELF-CARE Instructions (If sedation given, give patient instructions): Wrist Injury (ED), Wrist Sprain (ED) Additional Instructions: Return to the emergency department with any new, worsening, or concerning symptoms. Take the Toradol with Tylenol as needed for pain relief. If you choose to take the Toradol, do not take any other anti-inflammatories such as ibuprofen, take one or the other. Apply ice for 10-15 minutes every 2-3 hours for the first 2-3 days followed by heat thereafterwards. Follow up with your primary care provider in 1-2 days. Prescriptions: Ketorolac [Toradol] 10 mg PO Q6HR PRN #15 tab PRN Reason: Pain Is patient prescribed a controlled substance at d/c from ED?: No Referrals: Kishan Amador MD [Primary Care Provider] - 1-2 days Time of Disposition: 06:19
--- NOTE | 2023-08-19 21:24 | XR ---
EXAMINATION TYPE: XR wrist complete LT DATE OF EXAM: 08/19/2023 COMPARISON: None HISTORY: Pain TECHNIQUE: 3 view left wrist FINDINGS: No acute fracture or dislocation is evident. Joint spaces are preserved. Soft tissues are n ormal. Follow up exams can be performed 7-10 days from acute trauma for continued pain. If there is pain at the anatomic snuff box, nuclear medicine bone scan could be performed. IMPRESSION: 1. No acute osseous abnormality left wrist.
== END 2023-08-19 06:34 | disposition home or self-care (01) ==
LOC: EC 05:52
DX: S63.502A Unspecified sprain of left wrist, initial encounter (principal); J45.909 Unspecified asthma, uncomplicated; Z88.5 Allergy status to narcotic agent; Z88.8 Allergy status to other drugs, medicaments and biological substances; Z79.899 Other long term (current) drug therapy; W01.0XXA Fall on same level from slipping, tripping and stumbling without subsequent striking against object, initial encounter
CPT/HCPCS: 99283; 96372; 73110; J1885

== ENCOUNTER → 2023-09-06 | Outpatient (CLI) | payer MEDICAID ==
--- NOTE | 2023-09-06 20:53 | MM ---
Reason for Exam: Screening (asymptomatic). Last mammogram was performed 22 year(s) and 5 month(s) ago. Patient History: Menarche at age 14. First Full-Term at age 24. Left ovary removed at age 31. Hysterectomy at age 31. Postmenopausal. Mother had breast cancer under age 50. Risk Values: Sonja 5 year model risk: 1.9%. NCI Lifetime model risk: 14.4%. Prior Study Comparison: No prior studies available for comparison. Tissue Density: The breast tissue is heterogeneously dense. This may lower the sensitivity of mammography. Findings: Analyzed By CAD. No significant mass, suspicious microcalcification, or other discrete abnormality is seen. No persisting abnormality on 3-D images. Overall Assessment: Benign, BI-RAD 2 Management: Screening Mammogram of both breasts in 1 year. . Patient should continue monthly self-breast exams. A clinical breast exam by your physician is recommended on an annual basis. This exam should not preclude additional follow-up of suspicious palpable abnormalities. Note on Sonaj scores and lifetime risk: 1. A Sonja score greater than 3% is considered moderate risk. If this is the case, consider specialist referral to assess eligibility for a risk reducing agent. 2. If overall lifetime risk for the development of breast cancer is 20% or higher, the patient may qualify for future screening with alternating mammogram and breast MRI. Electronically signed and approved by: Colton Hernandez M.D. Radiologist
== END | disposition home or self-care (01) ==
LOC: RADMAMWWP 08:08
PROVIDERS: ATTEND Family Medicine
DX: Z12.31 Encounter for screening mammogram for malignant neoplasm of breast (principal); Z78.0 Asymptomatic menopausal state; Z80.3 Family history of malignant neoplasm of breast
CPT/HCPCS: 77063; 77067

== ENCOUNTER → 2024-01-09 | Outpatient (CLI) | payer MEDICAID ==
[2024-01-09 18:29] LABS: Basophils # (A) 0.06 X 10*3/uL (0.00-0.10); Basophils % (A) 0.8 %; Eosinophils # (A) 0.53 X 10*3/uL (0.04-0.35); Eosinophils % (A) 6.8 %; HCT 43.4 % (37.2-46.3); HGB 13.8 g/dL (12.0-15.0); Lymphocytes # (A) 1.49 X 10*3/uL (0.90-5.00); Lymphocytes % (A) 19.1 %; MCH 30.5 pg (27.0-32.0); MCHC 31.8 g/dL (32.0-37.0); MCV 95.8 FL (80.0-97.0); Mean Platelet Volume 11.8 FL (9.5-12.2); Monocytes # (A) 0.53 X 10*3/uL (0.20-1.00); Monocytes % (A) 6.8 %; NRBC Per 100 WBC 0 X 10*3/uL (0.00-0.01); Neutrophils # (A) 5.18 X 10*3/uL (1.80-7.70); Neutrophils % (A) 66.2 %; Platelet Count 272 X 10*3/uL (140-440); RBC 4.53 X 10*6/uL (4.10-5.20); RDW 12.6 % (11.5-14.5); WBC 7.81 X 10*3/uL (4.50-10.00)
[2024-01-09 19:30] LABS: % Iron Saturation 14.5 (12.00-45.00); Ferritin 24.6 ng/mL (10.0-291.0)
== END | disposition home or self-care (01) ==
LOC: LABWHC1 13:48
PROVIDERS: ATTEND Internal Medicine Hematology & Oncology
DX: D50.0 Iron deficiency anemia secondary to blood loss (chronic) (principal); D64.89 Other specified anemias; J45.998 Other asthma; R06.02 Shortness of breath
CPT/HCPCS: 36415; 82728; 83540; 83550; 85025

== ENCOUNTER → 2024-06-11 | Outpatient (CLI) | payer MEDICAID ==
--- NOTE | 2024-06-11 12:41 | XR ---
EXAMINATION TYPE: XR lumbosacral spine min 4V DATE OF EXAM: 06/11/2024 12:10 PM COMPARISON: None. CLINICAL INDICATION: Female, 54 years old with history of M54.41L SPINE RIGHT SIDED LOW BACK PAIN W R T SCIAT, slip and fall, pain radiating into right leg. TECHNIQUE: XR lumbosacral spine min 4V view(s) obtained. FINDINGS: Scoliosis is present with the convexity to the left centered at L4. There is diffuse degenerative dis c changes present. Some spondylosis and degenerative disc changes at T12-L1. No spondylolytic defects are evident. IMPRESSION: 1. Scoliosis with degenerative disc changes. [facility], , 06/11/2024 12:39 PM
== END | disposition home or self-care (01) ==
LOC: RADXRMAIN 10:17
PROVIDERS: ATTEND Family Medicine
DX: M54.41 Lumbago with sciatica, right side (principal)
CPT/HCPCS: 72110

== ENCOUNTER → 2024-06-14 | Outpatient (CLI) | payer MEDICAID ==
--- NOTE | 2024-06-14 09:17 | MR ---
EXAMINATION TYPE: MR lumbar spine wo con DATE OF EXAM: 06/14/2024 7:36 AM COMPARISON: None. CLINICAL INDICATION: Female, 54 years old with history of M54.41 ACUTE RIGHT SIDE LOW BACK PAIN, Low back pain that radiates down right leg. TECHNIQUE: Multiplanar, multisequence images of the lumbar spine were acquired. IV Contrast: mL (None, if empty) FINDINGS: Cord ends at the L1-L2 level. L5-S1: No focal disc herniation or significant disc bulge. No spinal canal stenosis. Neural foramen are patent. Facet degenerative changes are present. L4-L5: No focal disc herniation or significant disc bulge. No spinal canal stenosis. Facet hypertro phy is present. Mild right foramen narrowing is present. L3-L4: No focal disc herniation or significant disc bulge. No spinal canal stenosis. Mild to moderat e right foraminal narrowing is present. L2-L3: No focal disc herniation or significant disc bulge. No spinal canal stenosis. Neural foramen are patent. Facet hypertrophy on the right is present with posterior lateral thecal sac compression . Severe right foraminal stenosis appears to be present. L1-L2: There is loss of disc height at this level. Mild disc bulges in the left paracentral region wi th mild anterior thecal sac compression. Moderate left and right foraminal stenosis is present. There is a grade 1 mild retrolisthesis of L1 on L2. T12-L1: No focal disc herniation or significant disc bulge. No spinal canal stenosis. Neural forame n are patent. T11-T12: There is a small to moderate left paracentral disc herniation. This has cord contact. Some m ild cord deformity may be present. No AP spinal canal stenosis is present. Neural foramen are patent. No spinal canal stenosis. Neural foramen are patent. IMPRESSION: 1. Left paracentral disc herniation T11-12 with cord contact and mild cord deformity. No stenosis pre sent. 2. Severe right L2-3 foraminal stenosis. Milder foraminal narrowing as discussed above. 3. Mild grade 1 retrolisthesis of L1 posterior on L2 [facility], , 06/14/2024 9:14 AM
== END | disposition home or self-care (01) ==
LOC: RADMRIMAIN 06:16
PROVIDERS: ATTEND Family Medicine
DX: M48.061 Spinal stenosis, lumbar region without neurogenic claudication (principal); M51.16 Intervertebral disc disorders with radiculopathy, lumbar region; M51.24 Other intervertebral disc displacement, thoracic region; M43.16 Spondylolisthesis, lumbar region
CPT/HCPCS: 72148

== ENCOUNTER → 2024-07-10 | Outpatient (CLI) | payer MEDICAID ==
[2024-07-10 14:50] LABS: HCT 44.7 % (37.2-46.3); HGB 14.2 g/dL (12.0-15.0); MCH 30.3 pg (27.0-32.0); MCHC 31.8 g/dL (32.0-37.0); MCV 95.5 FL (80.0-97.0); Mean Platelet Volume 11.9 FL (9.5-12.2); NRBC Per 100 WBC 0 X 10*3/uL (0.00-0.01); Platelet Count 295 X 10*3/uL (140-440); RBC 4.68 X 10*6/uL (4.10-5.20); RDW 13.4 % (11.5-14.5); WBC 5.51 X 10*3/uL (4.50-10.00)
[2024-07-10 14:51] LABS: Basophils # (A) 0.03 X 10*3/uL (0.00-0.10); Basophils % (A) 0.5 %; Eosinophils # (A) 0.65 X 10*3/uL (0.04-0.35); Eosinophils % (A) 11.8 %; Lymphocytes # (A) 0.94 X 10*3/uL (0.90-5.00); Lymphocytes % (A) 17.1 %; Monocytes # (A) 0.33 X 10*3/uL (0.20-1.00); Neutrophils # (A) 3.55 X 10*3/uL (1.80-7.70); Neutrophils % (A) 64.4 %
[2024-07-10 15:04] LABS: Calcium 9.8 mg/dL (8.7-10.3); Carbon Dioxide 25.6 mmol/L (21.6-31.8); Chloride 102 mmol/L (96-109); Glucose 87 mg/dL (70-110); Potassium 4.4 mmol/L (3.5-5.5); Sodium 139 mmol/L (135-145)
[2024-07-10 15:19] LABS: INR 0.94 sec (0.93-1.11); Prothrombin Time 10.6 sec (9.9-11.9)
== END | disposition home or self-care (01) ==
LOC: LABWHC1 08:34
PROVIDERS: ATTEND Family Medicine
DX: Z01.812 Encounter for preprocedural laboratory examination (principal); M16.11 Unilateral primary osteoarthritis, right hip
CPT/HCPCS: 36415; 80048; 85025; 85610

== ENCOUNTER → 2024-08-21 | Outpatient (CLI) | payer MEDICAID | END | disposition home or self-care (01) | LOC: LABPAT 15:44 | PROVIDERS: ATTEND Orthopaedic Surgery | DX: Z01.812 Encounter for preprocedural laboratory examination (principal); M16.11 Unilateral primary osteoarthritis, right hip; Z22.322 Carrier or suspected carrier of Methicillin resistant Staphylococcus aureus | CPT/HCPCS: 86850; 86900; 86901; 87070 ==

== ENCOUNTER → 2024-08-27 | Outpatient (CLI) | payer MEDICAID ==
[2024-08-27 19:48] LABS: BUN/Creat Ratio 19.88 Ratio (12.00-20.00); Blood Urea Nitrogen 15.9 mg/dL (9.0-27.0); Calcium 9.4 mg/dL (8.7-10.3); Carbon Dioxide 25.3 mmol/L (21.6-31.8); Chloride 103 mmol/L (96-109); Glucose 91 mg/dL (70-110); Potassium 4.3 mmol/L (3.5-5.5); Sodium 139 mmol/L (135-145)
[2024-08-27 19:53] LABS: INR 0.94 sec (0.93-1.11); Prothrombin Time 10.8 sec (9.9-11.9)
--- NOTE | 2024-08-29 02:32 | HP ---
HISTORY AND PHYSICAL Surgery August 29, 2024. HISTORY OF PRESENT ILLNESS: Krystal Zuluaga is a 54-year-old patient, seen with symptomatic right hip osteoarthritis. After having treatment options discussed, she elected to proceed with direct anterior right total hip arthroplasty. Consent was obtained. PAST MEDICAL HISTORY: Asthma. PAST SURGICAL HISTORY: Hysteroscopy, laparoscopy, shoulder arthroscopy, left total hip arthroplasty. MEDICATIONS: 1. Tylenol. 2. Tramadol. 3. [place]. ALLERGIES: None. SOCIAL HISTORY: She denies tobacco use. PHYSICAL EVALUATION: Right hip: She has limited range of motion with severe pain. Positive hip impingement sign. Straight leg raise negative. Distal neurovascular exam is intact. RADIOGRAPHS: Right hip reveals severe osteoarthritic changes. IMPRESSION: 1. Right hip osteoarthritis. 2. Asthma. PLAN: Direct anterior right total hip arthroplasty. MMODL / IJN: [id number] /
== END | disposition home or self-care (01) ==
LOC: LABPAT 15:47
PROVIDERS: ATTEND Orthopaedic Surgery
DX: M16.11 Unilateral primary osteoarthritis, right hip (principal)
CPT/HCPCS: 80048; 85610

== ENCOUNTER 2024-08-29 05:38 | Day surgery (SDC) | payer MEDICAID ==
[2024-08-27 11:38] VITALS: BMI 25.1
[~2024-08-29 05:38] MED LIST changes: -ACETAMINOPHEN TAB 500 MG TAB PO ONE; -DEXAMETHASONE SOD PHOSPHATE 10 MG/ML 1 ML VIAL IV ONE; -LACTATED RINGERS 1,000 ML IV SCH; -MELOXICAM 7.5 MG TAB PO ONE; -MIDAZOLAM 2 MG/2 ML VIAL IV PRN; -ONDANSETRON 4 MG/2 ML VIAL IVP ONE; -ROPIVACAINE 246.25 MG, EPINEPHrine 0.5 MG, KETOROLAC 30 MG, cloNIDine HCL/PF 80 MCG, WA... MISCELLANE ONE; -SCOPOLAMINE 1.5MG/72HR PATCH TRANSDERM ONE; +TRANEXAMIC 1,000 MG/100ML-NACL 1,000 MG in SALINE 1 100ML.BAG IVPB PRN; -TRANEXAMIC ACID 1,000 MG in SODIUM CHLORIDE 0.9% 100 ML IVPB ONE; -fentaNYL (PF) 50 MCG/ML 2 ML AMP IV PRN
[2024-08-29] MEDS ORDERED: LIDOCAINE 1% (10MG/ML) FOR IV START INTRADERMA PRN (05:46)
[2024-08-29] MEDS: MELOXICAM 7.5 MG TAB PO PRN (06:56)
[2024-08-29] MEDS: ACETAMINOPHEN TAB 500 MG TAB PO PRN (06:56)
[2024-08-29] MEDS: ONDANSETRON 4 MG/2 ML VIAL IVP PRN (06:57)
[2024-08-29] MEDS: DEXAMETHASONE SOD PHOSPHATE 4 MG/ML 1 ML VIAL IVP STA (06:58)
[2024-08-29] MEDS: LACTATED RINGERS 1,000 ML IV SCH ×2 (06:59→13:30)
[2024-08-29] MEDS ORDERED: droPERidol 5 MG/2 ML VIAL IVP PRN (07:00)
[2024-08-29] MEDS: fentaNYL (PF) 50 MCG/ML 2 ML AMP IV PRN (07:07)
[2024-08-29] MEDS: MIDAZOLAM 2 MG/2 ML VIAL IV ONE (07:07)
[2024-08-29] MEDS ORDERED: TRANEXAMIC 1,000 MG/100ML-NACL PREMIX BAG ONE (07:23)
[2024-08-29] MEDS ORDERED: NEOSTIGMINE 1 MG/ML 10 ML VIAL ONE (07:23)
[2024-08-29] MEDS ORDERED: MIDAZOLAM 2 MG/2 ML VIAL ONE (07:23)
[2024-08-29] MEDS ORDERED: GLYCOPYRROLATE 0.2 MG/ML 2 ML VIAL ONE (07:23)
[2024-08-29] MEDS ORDERED: LIDOCAINE 1% INJ 10MG/ML (20 ML MDV) ONE (07:23)
[2024-08-29] MEDS ORDERED: ROCURONIUM 10 MG/ML (5 ML VIAL) IV ONE (07:23)
[2024-08-29] MEDS ORDERED: SUCCINYLCHOLINE CHLORIDE 200 MG/10 ML VIAL IV ONE (07:23)
[2024-08-29] MEDS ORDERED: ROPIVACAINE 5 MG/ML 30 ML VIAL ONE (07:23)
[2024-08-29] MEDS ORDERED: PROPOFOL 10 MG/ML 20 ML VIAL IV ONE (07:23)
[2024-08-29] MEDS ORDERED: PHENYLEPHRINE-0.9% NACL SYG 1,000 MCG/10 ML SYRINGE ONE (07:23)
[2024-08-29] MEDS ORDERED: fentaNYL (PF) 50 MCG/ML 2 ML AMP ONE (07:23)
[2024-08-29] MEDS: ceFAZolin 1,000 MG in SODIUM CHLORIDE 0.9% 1,000 ML IRRIGATION ONE (07:29)
[2024-08-29] MEDS: IV FLUID CONTINUATION 1,000 ML IV ONE (07:30)
[2024-08-29] MEDS: LACTATED RINGERS 1,000 ML IV ONE (08:40)
--- NOTE | 2024-08-29 09:04 | FL ---
EXAMINATION TYPE: FL guidance operating room, XR Hip Limited RT DATE OF EXAM: 08/29/2024 8:59 AM COMPARISON: Pre Operative Images if available both CT/MRI or plain film CLINICAL INDICATION: Female, 54 years old with history of RT ANTERIOR HIP; TECHNIQUE: FL guidance operating room, XR Hip Limited RT, multiple fluoroscopic images provided for p rocedure. Total fluoroscopy time: 10.7 seconds Total submitted images to PACS: 4 DAP: 0.3140 mGym2 Gycm2 uGym2 cGycm2 or equivalent. FINDINGS: Fluoroscopic images during arthroplasty. Arthroplasties bilaterally appear intact. Demonstrate hardwa re in appropriate position. Hardware appears intact. No immediate complication identified. IMPRESSION: 1. No evidence for intraoperative complication. 2. Please see the operative/procedural note for further details. [facility], , 08/29/2024 9:02 AM
--- NOTE | 2024-08-29 09:07 | P.OP ---
Date of Procedure: 08/29/24 Preoperative Diagnosis: Right hip osteoarthritis Postoperative Diagnosis: Right hip osteoarthritis Procedure(s) Performed: Direct anterior right total hip arthroplasty Implants: 1. DePuy [place] KA size 11 with collar press-fit femoral stem 2. DePuy [place] 52 mm press-fit acetabular shell 3. DePuy [place] neutral polyethylene acetabular liner 52 mm OD 36 mm ID 4. Biolox delta ceramic femoral head 36 mm +5 Anesthesia: GETA, regional (Erector spinae block) Surgeon: Lonnei Guzman Planning Intern #1: Jensen De La Torre Estimated Blood Loss (ml): 50 Pathology: none sent Condition: stable Disposition: PACU Indications for Procedure: 54-year-old patient seen with symptomatic right hip osteoarthritis. After having treatment options discussed, she elected to proceed with direct anterior right total hip arthroplasty. Operative Findings: See description of procedure Description of Procedure: The patient was taken to the operative suite. Patient underwent a general anes thetic by the department of anesthesia. Patient was then transferred to the [place] table. Patient was given preoperative IV antibiotics and TXA. Both lower extremities were placed in standard leg spars. The hip was then prepped and draped in the normal sterile orthopedic fashion. A standard anterior incision was made beginning 3 cm lateral and 1 cm distal to the ASIS extending 10 cm. Dissection was then carried down through the subcutaneous soft tissues down to the fascia overlying the tensor fascia leo. An incision was now made through the fascia. Careful dissection was taken down exposing the tensor fascia leo muscle. A Cobra retractor was now placed along the medial femoral neck and a second one along the lateral femoral neck. The venous circumflex vessels were now identified, cauterized and clipped. We identified the anterior hip capsule. An incision was made through the hip capsule along the lateral border. I performed a partial anterior capsulectomy. Retractors were now placed around the femoral neck itself. A femoral neck cut was now made with a sagittal saw. It was completed with an osteotome at the lateral neck area. The femoral head was now removed without difficulty. The extremity was now rotated to 60 of external rotation. It was locked in position. Residual labrum was now debrided out. Serial reaming was performed of the acetabulum while Bebeto SOTO assisted holding an anterior retractor for exposure. Once we reached the appropriate size and a trial was position and fit nicely. The appropriate size was now chosen opened and made available. It was introduced into the acetabulum without difficulty. The C-arm/fluoroscopy was now brought into the operative field. We made sure we had a true AP pelvic view. We now under direct C-arm /fluoroscopy introduced into the acetabular component with appropriate version and inclination. I held the cup in appropriate position well Bebeto SOTO used a mallet to seat the acetabular component. I noted the component now to be well seated and stable. Acetabular cup introduce her was removed. The C-arm was pulled back. An appropriate liner was introduced and clicked into position. It was felt to be stable. At this point retractors were removed. The extremity was now placed into 140 external rotation with no traction. The leg was now dropped to the ground and adducted. Appropriate retractors were now positioned along the proximal femur. We also placed our femoral look into position. Additional capsular releasing was performed to gain access to the proximal femur. We now used a box osteotome. A canal finder was now utilized. Serial broaching was now performed with the assistance of Bebeto SOTO tapping the broaches down with a mallet while held the broach in appropriate rotation and position. This was done until we reached the appropriate size with good overall rotational stability. Appropriate calcar planing was performed. A trial head/neck was placed into position. The hip was now reduced. The C- arm/fluoroscopy was brought back into the operative field. I obtained an AP pelvis which demonstrated adequate positioning of the trial components. The C- arm/fluoroscopy was pulled back. Retractors were repositioned and the hip was dislocated. The leg was again taken down to the ground and adducted. Appropriate retractors were repositioned as well as the femoral hook. All trial components were removed. The femoral implant was opened along with the femoral head. The femoral implant was introduced on the appropriate handle into our pre-broached area. I held the component position well Bebeto SOTO used a mallet to seat the femoral component. The femoral component was now noted to be well seated and stable.. The femoral head was introduced with good positioning and fixation noted. Retractors were now removed. The hip was now reduced. There appeared be good positioning of the hip confirmed on intraoperative fluoroscopy. Spot films were obtained to document this. A second gram of TXA was given. The deep and superficial soft tissues were infiltrated with local analgesic. Bipolar cautery had been utilized intermittently through the procedure for hemostasis. The wound was irrigated copiously with pulse lavage mechanical irrigation. The fascia was repaired with Vicryl suture. The subcutaneous soft tissues were repaired in layers with Vicryl suture. The skin was approximated with pernio/Dermabond. Sterile dressings were applied. Patient was then awakened, transferred to a bed and taken to recovery in stable condit ion. Bebeto SOTO assisted with the complex procedure.
[2024-08-29] MEDS ORDERED: NALOXONE 0.4 MG/ML 1 ML VIAL IV PRN (09:08)
[2024-08-29] MEDS ORDERED: HYDROmorphone 0.5 MG/0.5 ML SYRINGE IVP PRN (09:08)
[2024-08-29] MEDS ORDERED: HYDROcodone/APAP 5-325MG 1 EACH TAB PO PRN (09:08)
[2024-08-29] MEDS ORDERED: ONDANSETRON 4 MG/2 ML VIAL IVP PRN (09:08)
[2024-08-29] MEDS ORDERED: HYDROmorphone 1 MG/ML 1 ML SYRINGE IVP PRN (09:08)
--- NOTE | 2024-08-29 09:08 | P.ANPRN ---
Procedure Note - Anesthesia - Nerve Block Performed Right Dylan Single Time Out Performed: Yes ([id number]) Date of Procedure: 08/29/24 Procedure Start Time: : Procedure Stop Time: :11 Location of Patient: PreOp Indication: Acute Post-Operative Pain, Requested by Surgeon Specifically requested for management of pain by DrIftikhar: Lonnie Guzman Sedation Type: Sedate with meaningful contact maintained Preparation: Sterile Prep Position: Supine Catheter: None Needle Types: Pajunk Needle Gauge: 21 Ultrasound used to visualize needle placement: Yes Ultrasound used to observe medication spread: Yes Injectate: 0.5% Ropivacaine (see comment for volume) (30cc) Blood Aspirated: No Pain Paresthesia on Injection Noted: No Resistance on Injection: Normal Image Stored and Saved: Yes Events: Uneventful and Well Tolerated
[2024-08-29] MEDS: HYDROmorphone 0.5 MG/0.5 ML SYRINGE IVP PRN (11:50)
[2024-08-29] MEDS ORDERED: LORATADINE 10 MG TAB PO PRN (13:33)
--- NOTE | 2024-08-29 13:34 | P.CONS ---
History of Present Illness - Reason for Consult Consult date: 08/29/24 Medical Management Requesting physician: Lonnie Guzman - History of Present Illness History of Presenting Illness: Patient is a very pleasant 54-year-old female with a past medical history of iron deficiency anemia, asthma, and osteoarthritis. She is currently admitted under orthopedic surgery team status post status post completion of right total hip arthroplasty. Surgical procedure was completed by Dr. Guzman secondary to severe right hip osteoarthritis. We were consulted for medical management throughout hospitalization. Patient seen and fully evaluated in room 470 upon returning from completion of surgical procedure. She currently reports pain in right hip and leg is at a 3-4 at this time. She denies having any other complaints including headache, li ghtheadedness, dizziness, chest pain, palpitations, or shortness of breath. Patient denies having any postoperative nausea or vomiting and is tolerating clear liquid diet and to be advanced as patient tolerates. Review of systems: Pertinent positives and negatives as discussed in HPI, a complete review of systems was performed and all other systems are negative. Physical exam: Vital signs reviewed and stable. General: Nontoxic, no distress and appears stated age. Derm: Skin warm and dry, normal coloration for ethnicity. Head: Atraumatic, normocephalic and symmetric. Eyes: EOM's intact, no lid lag, and anicteric sclera Mouth: no lip lesions, mucus membranes moist Cardiovascular: regular rate and rhythm with normal S1S2, no murmur, positive posterior tibial pulses bilaterally, and cap refill < 2 seconds. Lungs: Respirations even, regular, and unlabored on room air. Lungs CTA bilaterally, no rhonchi, no rales, no wheezing, and no accessory muscle usage. Abdominal: soft, nontender to palpation, no guarding, no appreciable organomegaly Ext: ROM intact. No gross muscle atrophy, no edema, no contractures Neuro: Speech clear, face symmetrical and CN II-XII grossly intact with no noted focal neuro deficits Psych: Alert and oriented to person, place, time, and situation. Appropriate and pleasant affect. Assessment and Plan of Care: Status post right total hip arthroplasty Management per primary admitting orthopedic surgery team including DVT prophylaxis, pain management, wound/dressing management, weightbearing, and PT/OT. Patient currently on DVT prophylaxis with aspirin 81 mg twice daily. Mild persistent asthma Patient to continue with daily Claritin 10 mg nightly as needed for allergy type symptoms along with Ventolin inhaler 1 puff 4 times daily. Iron deficiency anemia Continue daily home medication regimen with ferrous sulfate 325 mg daily. Data reviewed: Reviewed preoperative labs completed 07/10/2024. CBC showing WBC count of 5.51, hemoglobin of 14.2, and platelet count of 295. Coagulation profile normal findings. BMP was unremarkable. Vital signs reviewed. Blood pressure 135/74, heart rate 70, respiratory rate 15, temp 98.4 F, and SpO2 of 100% on 2 L. Thank you for allowing us to participate in the care of this pleasant patient. Do not hesitate to contact us with questions. Someone can be reached from the [facility] hospitalist group all hours of the day at [phone] or via [employer]. Patient was seen independently by Nurse Practitioner. This document was prepared using [employer] dictation software. Please allow for errors in sea kayaking guide while rare they do occur. Shen Rutledge NP rendered care for this patient independently, reviewed the findings and plan as documented in the note above and agree with plan. I did not physically speak with or examine the patient on this date. Past Medical History Past Medical History: Asthma, Osteoarthritis (OA) Additional Past Medical History / Comment(s): hx falls r/t , still has lt ovary. chronic iron def anemia History of Any Multi-Drug Resistant Organisms: None Reported Past Surgical History: Hysterectomy, Orthopedic Surgery, Tubal Ligation Additional Past Surgical History / Comment(s): rt fallopian tube and ovary removed, uterus removed still has lt ovary w/ cyst removed off that ovary, left hip replacement Past Anesthesia/Blood Transfusion Reactions: No Reported Reaction, Motion Sickness Additional Past Anesthesia/Blood Transfusion Reaction / Comm: adopted Smoking Status: Never smoker - Past Family History Mother Family Medical History: Unable to Obtain Additional Family Medical History / Comment(s): pt was adopted Medications and Allergies Home Medications Medication Instructions Recorded Confirmed Type Dextroamphetamine/Amphetamine 20 mg PO BID@0630,1530 06/27/15 08/27/24 History [Adderall] Cetirizine HCl [Zyrtec] 10 mg PO HS PRN 05/31/19 08/27/24 History Ferrous Sulfate [Iron (65 MG 325 mg PO DAILY 05/31/19 08/27/24 History Elemental)] Vitamin B-12 [place] (Unk Dose) 8 spray SUBLINGUAL Q48H 10/19/19 08/27/24 History Albuterol Inhaler [Ventolin Hfa 1 puff INHALATION QID 08/06/22 08/27/24 History Inhaler] Acetaminophen [Tylenol Extra 500 - 1,000 mg PO Q6H PRN 08/27/24 08/27/24 History Strength] Allergies Allergy/AdvReac Type Severity Reaction Status Date / Time atomoxetine [From Strattera] AdvReac Nausea & Verified 08/29/24 06:35 Vomiting codeine AdvReac "PASSED Verified 08/29/24 06:35 OUT" Physical Exam Vitals: Vital Signs Temp Pulse Pulse Resp BP BP Pulse Ox 08/29/24 12:30 60 16 138/70 100 08/29/24 12:00 56 L 15 146/69 100 08/29/24 11:30 54 L 15 175/77 100 08/29/24 11:15 52 L 14 186/86 100 08/29/24 11:00 51 L 14 163/77 97 08/29/24 10:45 69 15 161/76 96 08/29/24 10:30 54 L 16 160/75 100 08/29/24 10:15 53 L 16 145/70 100 08/29/24 10:00 72 16 169/64 100 08/29/24 09:45 68 16 164/79 100 08/29/24 09:30 64 16 161/79 100 08/29/24 09:23 97 F L 81 16 150/72 100 08/29/24 07:14 70 16 134/66 100 08/29/24 06:31 97.2 F L 82 18 146/68 95 Intake and Output 08/28/24 08/29/24 08/29/24 22:59 06:59 14:59 Intake Total 1351 Output Total 50 Balance 1301 Intake: IV 1351 Output: Estimated Blood Loss 50 Other: Weight 72.2 kg
[2024-08-29] MEDS ORDERED: VITAMIN B12 SUBLINGUAL SCH (13:45)
[2024-08-29] MEDS: HYDROcodone/APAP 7.5-325MG 1 EACH TAB PO PRN (14:05)
[2024-08-29] MEDS: ALBUTEROL HFA INHALER INHALATION SCH (17:11)
[2024-08-29] MEDS: ASPIRIN 81 MG PO SCH (20:49)
[2024-08-29] MEDS: SENNOSIDES-DOCUSATE SODIUM 1 EACH TAB PO SCH (20:49)
[2024-08-30 08:15] VITALS: RESP 16
[2024-08-30] MEDS: FERROUS SULFATE 325 MG TAB PO SCH (08:29)
[2024-08-30] MEDS: FAMOTIDINE 20 MG TAB PO SCH (08:29)
[2024-08-30 09:13] LABS: BUN/Creat Ratio 15.71 Ratio (12.00-20.00); Calcium 8.7 mg/dL (8.7-10.3); Chloride 106 mmol/L (96-109); Glucose 131 mg/dL (70-110); Potassium 4.4 mmol/L (3.5-5.5); Sodium 140 mmol/L (135-145)
[2024-08-30 09:19] LABS: Basophils # (A) 0.04 X 10*3/uL (0.00-0.10); Basophils % (A) 0.4 %; Eosinophils # (A) 0.01 X 10*3/uL (0.04-0.35); Eosinophils % (A) 0.1 %; HCT 32.5 % (37.2-46.3); HGB 10.6 g/dL (12.0-15.0); Lymphocytes # (A) 1.27 X 10*3/uL (0.90-5.00); Lymphocytes % (A) 11.8 %; MCHC 32.6 g/dL (32.0-37.0); MCV 92.1 FL (80.0-97.0); Mean Platelet Volume 11.4 FL (9.5-12.2); Monocytes # (A) 1.05 X 10*3/uL (0.20-1.00); Monocytes % (A) 9.8 %; NRBC Per 100 WBC 0 X 10*3/uL (0.00-0.01); Neutrophils # (A) 8.33 X 10*3/uL (1.80-7.70); Neutrophils % (A) 77.6 %; Platelet Count 227 X 10*3/uL (140-440); RBC 3.53 X 10*6/uL (4.10-5.20); RDW 13.4 % (11.5-14.5); WBC 10.73 X 10*3/uL (4.50-10.00)
[2024-08-30] MEDS: hydrOXYzine pamoate 25 MG CAP PO PRN (11:52)
--- NOTE | 2024-08-30 12:00 | P.PN ---
Subjective Progress Note Date: 08/30/24 Principal diagnosis: Status post direct anterior right total hip arthroplasty Patient evaluated today at bedside, she is up resting in her hospital chair. Patient is doing very well with physical therapy and ambulating. Patient is urinating with no issues. Patient denies headaches, lightheadedness, chest pain or shortness of breath Objective - Vital Signs Vital signs: Vital Signs Temp 98.4 F 08/30/24 07:05 Pulse 87 08/30/24 07:05 Resp 16 08/30/24 07:05 BP 128/70 08/30/24 07:05 Pulse Ox 94 L 08/30/24 07:05 FiO2 Intake & Output 08/29/24 08/30/24 08/30/24 18:59 06:59 18:59 Intake Total 1351 Output Total 50 Balance 1301 Weight 72.2 kg Intake: IV 1351 Output: Estimated Blood Loss 50 Other: Voiding Method Toilet # Voids 1 1 - Exam Right lower extremity: Incision is clean, dry, and intact. The foam dressing is in good condition. There is minimal soft tissue swelling and ecchymosis surrounding the medial and lateral aspects of the incision. Calf is soft, no tenderness with palpation. Plantar flexion, dorsiflexion, EHL, FHL are intact. Sensory exam to light touch throughout the extremity is intact, dorsal pedis pulses 2+. - Labs CBC & Chem 7: 08/30/24 03:33 08/30/24 03:33 Labs: Abnormal Lab Results - Last 24 Hours (Table) 08/30/24 08/30/24 Range/Units 03:33 03:33 WBC 10.73 H (4.50-10.00) X 10*3/uL RBC 3.53 L (4.10-5.20) X 10*6/uL Hgb 10.6 L (12.0-15.0) g/dL Hct 32.5 L (37.2-46.3) % Neutrophils # 8.33 H (1.80-7.70) X 10*3/uL Monocytes # 1.05 H (0.20-1.00) X 10*3/uL Eosinophils # 0.01 L (0.04-0.35) X 10*3/uL Glucose 131 H (70-110) mg/dL Assessment and Plan Assessment: Postoperative day #1 status post direct anterior right total hip arthroplasty Plan: Pain control, plan for discharge on [place] 7.5 mg / 325 mg. Will also send on oral stool softeners DVT prophylaxis, aspirin 81 mg twice a day for 30 days Wound care, discussed showering instructions, this to include bandage removal along with icing and elevating Home PT/nursing after discharge Medical recommendations appreciated Discharge planning: Patient stable for discharge home today Time with Patient: Less than 30
--- NOTE | 2024-08-30 12:06 | P.DS ---
Providers Date of admission: 08/29/2024 Expected date of discharge: 08/30/24 Attending physician: Lonnie Guzman Consults: 08/29/24 09:08 Consult Physician Routine Consulting Provider: Molina Burgess Consult Reason/Comments: Medical management Do you want consulting provider notified?: Yes Primary care physician: Kishan Amador MD Hospital Course: Date of admission: 08/29/2024 Date of discharge: 08/30/2024 Admission diagnosis: Status post direct anterior right total hip arthroplasty Discharge diagnosis: Same Attending physician: Dr. Guzman Surgical procedures: Direct anterior right total hip arthroplasty Brief history: Patient is a 54-year-old female with a history of progressive primary right hip osteoarthritis. At this point patient has failed conservative treatment measures and has opted to proceed with a elective direct anterior right total hip arthroplasty. Hospital course: Details of patient's surgery can be found in operative report. Patient tolerated the procedure well and was subsequently transported to orthopedic floor. Patient's orthopeidc and medical care was provided daily. Patient had daily laboratory tests performed for evaluation of overall blood counts. Patient had daily physical therapy to include strengthening range of motion as well as education with walker ambulation. Patient was treated with aspirin for their postoperative DVT prophylaxis during their inpatient stay. Patient was noted to have a relatively uneventful postoperative course. Patient reported satisfactory pain control with oral pain medications by postoperative day 0. Patient showed satisfactory progress with physical therapy. Patient moved steadily through the program and had no difficulty meeting the goals by postoperative day 1. Given patient's otherwise satisfactory course and having met physical therapy goals, plan is to discharge patient home on postoperative day 1. Discharge condition/disposition: Patient will be discharged home in stable condition. Discharge medications: Instructions are given on resumption of patient's normal daily medications per primary care recommendation, in addition patient will be prescribed [place] 7.5 mg / 325 mg, aspirin 81 mg, senna S. Discharge instructions: 1. Wound care and infection precautions, keep incision dry and covered while showering, no lotions, creams, moisturizers. No soaking, tubs, pools, hottubs. Do not scrub over the incision. 2. Weight-bear as tolerated with walker / cane until follow-up. 3. Ice and elevate when necessary. Do not exceed 20 minutes per hour with ice pack. 4. Utilize compression sleeve until seen at first follow up appointment. 5. Visiting nursing care. 6. Home physical therapy. 7. Pain meds and anticoagulants per prescription. 8. Pain medication has potential to cause constipation. Increase oral fluid and fiber intake. Contact primary care provider if you have not had a bowel movement within 48 hours after discharge 9. No anti-inflammatory medication until discussed at first post operative visit, this including Motrin, Aleve, Mobic, Diclofenac. 10. Follow up in office at 2 weeks postop with Bebeto De La Torre PA-C/Phil Elias 11. Follow up with your primary care doctor 7-10 days after discharge. 12. Contact [facility] with any questions, . Procedures: Direct anterior right total hip arthroplasty Patient Condition at Discharge: Good Plan - Discharge Summary Discharge Rx Participant: Yes New Discharge Prescriptions: New Aspirin [Adult Low Dose Aspirin EC] 81 mg PO BID #60 tab HYDROcodone/APAP 7.5-325MG [[place] 7.5] 1 each PO Q6HR PRN #28 tab PRN Reason: Pain Sennosides/Docusate Sodium [Senna-S 8.6-50 mg Tablet] 2 each PO DAILY PRN #30 tablet PRN Reason: Constipation No Action Dextroamphetamine/Amphetamine [Adderall] 20 mg PO BID@0630,1530 Ferrous Sulfate [Iron (65 MG Elemental)] 325 mg PO DAILY Cetirizine HCl [Zyrtec] 10 mg PO HS PRN PRN Reason: Allergy Symptoms Vitamin B-12 [place] (Unk Dose) 8 spray SUBLINGUAL Q48H Acetaminophen [Tylenol Extra Strength] 500 - 1,000 mg PO Q6H PRN PRN Reason: Pain Albuterol Inhaler [Ventolin Hfa Inhaler] 1 puff INHALATION QID Discharge Medication List Dextroamphetamine/Amphetamine [Adderall] 20 mg PO BID@0630,1530 06/27/15 [History] Cetirizine HCl [Zyrtec] 10 mg PO HS PRN 05/31/19 [History] Ferrous Sulfate [Iron (65 MG Elemental)] 325 mg PO DAILY 05/31/19 [History] Vitamin B-12 [place] (Unk Dose) 8 spray SUBLINGUAL Q48H 10/19/19 [History] Albuterol Inhaler [Ventolin Hfa Inhaler] 1 puff INHALATION QID 08/06/22 [History] Acetaminophen [Tylenol Extra Strength] 500 - 1,000 mg PO Q6H PRN 08/27/24 [History] Aspirin [Adult Low Dose Aspirin EC] 81 mg PO BID #60 tab 08/30/24 [Rx] HYDROcodone/APAP 7.5-325MG [[place] 7.5] 1 each PO Q6HR PRN #28 tab 08/30/24 [Rx] Sennosides/Docusate Sodium [Senna-S 8.6-50 mg Tablet] 2 each PO DAILY PRN #30 tablet 08/30/24 [Rx] Follow up Appointment(s)/Referral(s): [facility] [NON-STAFF] - 1 Week Jensen De La Torre PAC [PHYSICIAN [employer] FR[employer] INSPECTOR] - 2 Weeks Activity/Diet/Wound Care/Special Instructions: Orthopedic Discharge Instructions: 1. Wound care and infection precautions, keep incision dry and covered while showering, no lotions, creams, moisturizers. No soaking, pools, hot tubs. Do not scrub over incision. 2. Weight-bear as tolerated with walker / cane until follow-up. 3. Ice and elevate when necessary. Do not exceed 20 minutes per hour with ice pack. 4. Utilize compression sleeve until seen at first follow up appointment. 5. Pain meds and anticoagulants per prescription. 6. Pain medication has potential to cause constipation. Increase oral fluid and fiber intake. Contact primary care provider if you have not had a bowel movement within 48 hours after discharge. 7. No anti-inflammatory medication until discussed at first post operative visit, this including Motrin, Aleve, Mobic, Diclofenac. 8. Follow up in office at 2 weeks postop with Bebeto De La Torre PA-C/Phil Ervin PA-C 9. Follow up with your primary care doctor 7-10 days after discharge. 10. Contact [facility] with any questions, . Wound care instructions: 1. Okay to remove surgical dressing as of 09/05/2023 2. Okay to shower directly over the incision after removal of dressing Discharge Disposition: HOME WITH HOME HEALTH SERVICES
--- NOTE | 2024-08-30 13:02 | P.PN ---
Subjective Progress Note Date: 08/30/24 Hospital course: Patient is a very pleasant 54-year-old female with a past medical history of iron deficiency anemia, asthma, and osteoarthritis. She is currently admitted under orthopedic surgery team status post status post completion of right total hip arthroplasty. Surgical procedure was completed by Dr. Guzman secondary to severe right hip osteoarthritis. We were consulted for medical management throughout hospitalization. Physical exam: Patient seen and fully evaluated at bedside. She was sitting up in chair and reports doing well this morning. She reports controlled postoperative pain and has been ambulating with use of walker without reports of difficulties. Patient denies having any other complaints at this time including headache, lightheadedness, dizziness, chest pain, palpitations, shortness of breath or experiencing any numbness/tingling/weakness. Vital signs reviewed and stable. General: Nontoxic, no distress and appears stated age. Derm: Skin warm and dry, normal coloration for ethnicity. Head: Atraumatic, normocephalic and symmetric. Eyes: EOM's intact, no lid lag, and anicteric sclera Mouth: no lip lesions, mucus membranes moist Cardiovascular: regular rate and rhythm with normal S1S2, no murmur, positive posterior tibial pulses bilaterally, and cap refill < 2 seconds. Lungs: Respirations even, regular, and unlabored on room air. Lungs CTA bilaterally, no rhonchi, no rales, no wheezing, and no accessory muscle usage. Abdominal: soft, nontender to palpation, no guarding, no appreciable organomegaly Ext: ROM intact. No gross muscle atrophy, no edema, no contractures Neuro: Speech clear, face symmetrical and CN II-XII grossly intact with no noted focal neuro deficits Psych: Alert and oriented to person, place, time, and situation. Appropriate and pleasant affect. Assessment and Plan of Care: Status post right total hip arthroplasty Management per primary admitting orthopedic surgery team including DVT proph ylaxis, pain management, wound/dressing management, weightbearing, and PT/OT. Patient currently on DVT prophylaxis with aspirin 81 mg twice daily. Acute postoperative blood loss anemia This is a stable and expected finding. Preoperative hemoglobin 14.2 and postoperative hemoglobin of 10.6. No signs of active bleeding. No need for transfusion or any further intervention at this time. Mild persistent asthma Patient to continue with daily Claritin 10 mg nightly as needed for allergy type symptoms along with Ventolin inhaler 1 puff 4 times daily. Iron deficiency anemia Continue daily home medication regimen with ferrous sulfate 325 mg daily. Data reviewed: Postoperative labs reviewed. CBC showing leukocytosis with WBC count of 10.73, hemoglobin of 10.6, and BMP was unremarkable. Blood glucose 131. Vital signs reviewed. Blood pressure 128/70, heart rate 87, respiratory rate 16, temp 98.4 F, and SpO2 of 94% on room air. Patient is medically optimized for discharge once cleared by primary admitting orthopedic surgery team. Thank you for allowing us to participate in the care of this pleasant patient. Do not hesitate to contact us with questions. Someone can be reached from the [facility] hospitalist group all hours of the day at [phone] or via [employer]. Patient was seen independently by Nurse Practitioner. This document was prepared using [id number] dictation software. Please allow for errors in sewer and cutter finger buff material while rare they do occur. Shen Rutledge NP rendered care for this patient independently, reviewed the findings and plan as documented in the note above and agree with plan. I did not physically speak with or examine the patient on this date. Objective - Vital Signs Vital signs: Vital Signs Temp 98.4 F 08/30/24 07:05 Pulse 87 08/30/24 07:05 Resp 16 08/30/24 07:05 BP 128/70 08/30/24 07:05 Pulse Ox 94 L 08/30/24 07:05 FiO2 Intake & Output 08/29/24 08/30/24 08/30/24 18:59 06:59 18:59 Intake Total 1351 Output Total 50 Balance 1301 Weight 72.2 kg Intake: IV 1351 Output: Estimated Blood Loss 50 Other: Voiding Method Toilet # Voids 1 1 - Labs CBC & Chem 7: 08/30/24 03:33 08/30/24 03:33 Labs: Abnormal Lab Results - Last 24 Hours (Table) 08/30/24 08/30/24 Range/Units 03:33 03:33 WBC 10.73 H (4.50-10.00) X 10*3/uL RBC 3.53 L (4.10-5.20) X 10*6/uL Hgb 10.6 L (12.0-15.0) g/dL Hct 32.5 L (37.2-46.3) % Neutrophils # 8.33 H (1.80-7.70) X 10*3/uL Monocytes # 1.05 H (0.20-1.00) X 10*3/uL Eosinophils # 0.01 L (0.04-0.35) X 10*3/uL Glucose 131 H (70-110) mg/dL
[2024-08-30 13:41] VITALS: BP 123/79; PULSE 88; TEMP 99.2
[2024-08-30] MEDS: MULTIVITAMINS, THERA 1 EACH TAB PO SCH (13:49)
== END 2024-08-30 16:02 | disposition home health service (06) ==
LOC: OR 05:38 → 4SSUR 09:10 → OR 08-30 16:02
PROVIDERS: ATTEND Orthopaedic Surgery
DX: M16.11 Unilateral primary osteoarthritis, right hip (principal); Z88.5 Allergy status to narcotic agent; Z79.899 Other long term (current) drug therapy
CPT/HCPCS: 94640; 97161; 64999; 80048; 85025; 73501; 27130; C1776; J2250; J1100; J0690 ×3; J2405; J3010; J1171